=== PATIENT | female | born 1955 | race Caucasian/White ===

== ENCOUNTER 2017-11-07 12:07 | Observation (INO) | payer BC ==
[2017-11-07] MEDS ORDERED: Sodium Chloride 0.9% 10 ML Syringe FLUSH PRN (12:09)
[2017-11-07] MEDS ORDERED: Sodium Chloride 0.9% 2.5 ML Syringe FLUSH PRN (12:09)
--- NOTE | 2017-11-07 12:13 | EDM.PDOC ---
ED HPI GENERAL MEDICAL PROBLEM - General Chief Complaint: Neuro Symptoms/Deficits Stated Complaint: weakness Time Seen by Provider: 11/07/17 12:09 Source of Information: Reports: Patient, EMS History Limitations: Reports: No Limitations - History of Present Illness INITIAL COMMENTS - FREE TEXT/NARRATIVE: HISTORY AND PHYSICAL: Stroke Code was called at 1157, prior to patient's arrival - Dr Preston was consulted and involved in this case. History of present illness: Patient is a 62-year-old female who presents to the emergency room today with complaints of left-sided weakness since last evening at 10pm. Patient has a history of a previous stroke which resulted in no deficits, but did have some memory problems. Patient said that last night she noted some generalized weakness with ambulation, and woke up this morning she had noticed she was weaker on her left side. C/o generalized mild headache. No light or noise sensitivity. "I feel like I can't walk straight", she is ambulatory but feels like the left side is "sluggish". She denies any recent falls, head injury or trauma. She denies any fever, chills, chest pain, shortness of breath or cough. Denies any abdominal pain, nausea, vomiting, diarrhea or constipation. He has no syncope, near syncope, change in vision or diaphoresis. Review of systems: As per history of present illness and below otherwise all systems reviewed and negative. Past medical history: As per history of present illness and as reviewed below otherwise noncontributory. Surgical history: As per history of present illness and as reviewed below otherwise noncontributory. Social history: No reported history of drug or alcohol abuse. Family history: As per history of present illness and as reviewed below otherwise noncontributory. Physical exam: General: Well-developed and well-nourished 62-year-old female. Alert and oriented. Nontoxic appearing and in no acute distress. HEENT: Atraumatic, normocephalic, pupils equal and reactive bilaterally, negative for conjunctival pallor or scleral icterus, mucous membranes moist, throat clear, neck supple, nontender, trachea midline. No drooling or trismus noted. No meningeal signs Lungs: Clear to auscultation, breath sounds equal bilaterally, chest nontender. Heart: S1S2, regular rate and rhythm without overt murmur Abdomen: Soft, nondistended, nontender. Negative for masses or hepatosplenomegaly. Negative for costovertebral tenderness. Pelvis: Stable nontender. Genitourinary: Deferred. Rectal: Deferred. Skin: Intact, warm, dry. No lesions or rashes noted. Extremities: Atraumatic, negative for cords or calf pain. Neurovascular unremarkable. Neuro: Awake, alert, oriented. No facial droop or slurred speech noted. Drift is noted to the left upper and lower extremity. Patient is strong to both the left and right-sided, left is slightly weaker than the right - but is functioning. Cerebellum unremarkable. Motor and sensory unremarkable throughout. Notes: NIH upon arrival is a 3. She has slight drift to the left upper and left lower extremities. VSS. CT is negative for intracranial bleeding. Patient states that she still feels partly weak on the left upper and lower extremities. Patient is agreeable to staying overnight for further evaluation and management. Vital signs are stable. NIH remains 3. Dr Fox was consulted on this case. He is agreeable to keeping this patient for observation with telemetry. Diagnostics: CBC, CMP, UA, TSH, troponin, EKG, stat head CT, PT INR, PTT Therapeutics: Saline lock 2 Impression: Ischemic Stroke versus TIA Plan: Observation admission with telemetry. Definitive disposition and diagnosis as appropriate pending reevaluation and review of above. Duration: Hour(s): denies Pain Score (Numeric/FACES): 0 - Related Data Allergies Allergy/AdvReac Type Severity Reaction Status Date / Time cefoxitin [From Mefoxin] Allergy Anaphylactic Verified 09/26/15 14:11 Shock Home Meds: Home Meds Amitriptyline HCl 10 mg PO DAILY 11/07/17 [History] DULoxetine HCl [Cymbalta] 60 mg PO DAILY 11/07/17 [History] DULoxetine HCl [Cymbalta] 60 mg PO DAILY 11/07/17 [History] Diazepam [Valium] 5 mg PO ASDIRECTED PRN 11/07/17 [History] Furosemide 20 mg PO DAILY 11/07/17 [History] Modafinil 200 mg PO DAILY 11/07/17 [History] Pentosan Polysulfate Sodium [Elmiron] 100 mg PO DAILY 11/07/17 [History] Pregabalin [Lyrica] 300 mg PO BID 11/07/17 [History] Simvastatin [Zocor] 40 mg PO DAILY 11/07/17 [History] hydroCHLOROthiazide [Hydrochlorothiazide] 25 mg PO DAILY 11/07/17 [History] metFORMIN HCl [Metformin HCl] 500 mg PO BID 11/07/17 [History] Past Medical History HEENT History: Reports: Cataract Cardiovascular History: Reports: High Cholesterol, Hypertension, Other (See Below) Other Cardiovascular History: enlarged left ventricle Respiratory History: Reports: Asthma, COPD, Other (See Below) Other Respiratory History: Valley disease, emphasima Gastrointestinal History: Reports: Other (See Below) Other Gastrointestinal History: gastric bypass Genitourinary History: Reports: Renal Calculus Musculoskeletal History: Reports: Back Pain, Chronic Other Musculoskeletal History: foot and wrist surgery Neurological History: Reports: Neuropathy, Diabetic Psychiatric History: Reports: None Endocrine/Metabolic History: Reports: Diabetes, Type II Dermatologic History: Reports: None - Infectious Disease History Infectious Disease History: Reports: Chicken Pox, Measles, Mumps - Past Surgical History GI Surgical History: Reports: Appendectomy, Cholecystectomy Neurological Surgical History: Reports: C-Spine Social & Family History - Family History Family Medical History: Noncontributory HEENT: Reports: None Cardiac: Reports: Heart Failure, Hypertension, OR, Pacemaker Respiratory: Reports: COPD GI: Reports: None OBGYN: Reports: None Musculoskeletal: Reports: Arthritis Psychiatric: Reports: Bipolar, Depression, OCD Dermatologic: Reports: Eczema Oncologic: Reports: Lymphoma, Ovarian ED ROS GENERAL - Review of Systems Review Of Systems: ROS reveals no pertinent complaints other than HPI. ED EXAM, NEURO - Physical Exam Exam: See Below (See dictation) Course - Vital Signs Last Recorded V/S: Last Vital Signs Temp 96.6 F 11/07/17 12:07 Pulse 65 11/07/17 12:07 Resp 18 11/07/17 12:07 BP 133/66 11/07/17 12:07 Pulse Ox 95 11/07/17 12:07 - Orders/Labs/Meds Orders: Active Orders 24 hr Category Date Time Status Assess Neurological Status [RC] ASDIRECTED Care 11/07/17 12:09 Active Blood Glucose Check, Bedside [RC] STAT Care 11/07/17 12:09 Active EKG Documentation Completion [RC] STAT Care 11/07/17 12:09 Active Height and Weight [RC] UPON Care 11/07/17 12:09 Active Initiate Acute Stroke Protocol [RC] STAT Care 11/07/17 12:09 Active NIH Stroke Scale [RC] ASDIRECTED Care 11/07/17 12:09 Active Nursing Bedside Swallow Screen [RC] ASDIRECTED Care 11/07/17 12:09 Active Oxygen Therapy [RC] ASDIRECTED Care 11/07/17 12:09 Active Head wo Cont [CT] Stat Exams 11/07/17 12:09 Taken Sodium Chloride 0.9% [Normal Saline] 1,000 ml Med 11/07/17 12:50 Active IV STAT Sodium Chloride 0.9% [Saline Flush] Med 11/07/17 12:09 Active 10 ml FLUSH ASDIRECTED PRN Sodium Chloride 0.9% [Saline Flush] Med 11/07/17 12:09 Active 2.5 ml FLUSH ASDIRECTED PRN Peripheral IV Insertion Adult [OM.PC] Stat Oth 11/07/17 12:09 Ordered Peripheral IV Insertion Adult [OM.PC] Stat Oth 11/07/17 12:09 Ordered Medication Orders Sodium Chloride (Normal Saline) 1,000 mls @ 150 mls/hr IV STAT ONE Stop: 11/07/17 19:29 Last Admin: 11/07/17 13:12 Dose: 150 mls/hr Sodium Chloride (Saline Flush) 10 ml FLUSH ASDIRECTED PRN PRN Reason: Keep Vein Open Sodium Chloride (Saline Flush) 2.5 ml FLUSH ASDIRECTED PRN PRN Reason: Keep Vein Open Labs: Laboratory Tests 11/07/17 11/07/17 11/07/17 Range/Units 12:10 12:10 12:10 WBC 8.53 (4.0-11.0) K/uL RBC 4.35 (4.30-5.90) M/uL Hgb 10.2 L (12.0-16.0) g/dL Hct 33.3 L (36.0-46.0) % MCV 76.6 L (80.0-98.0) fL MCH 23.4 L (27.0-32.0) pg MCHC 30.6 L (31.0-37.0) g/dL RDW Std Deviation 45.1 (28.0-62.0) fl RDW Coeff of Cynthia 16 H (11.0-15.0) % Plt Count 226 (150-400) K/uL MPV 12.50 H (7.40-12.00) fL Neut % (Auto) 58.4 (48.0-80.0) % Lymph % (Auto) 29.9 (16.0-40.0) % Weber % (Auto) 9.4 (0.0-15.0) % Eos % (Auto) 1.4 (0.0-7.0) % Baso % (Auto) 0.9 (0.0-1.5) % Neut # (Auto) 5.0 (1.4-5.7) K/uL Lymph # (Auto) 2.6 H (0.6-2.4) K/uL Weber # (Auto) 0.8 (0.0-0.8) K/uL Eos # (Auto) 0.1 (0.0-0.7) K/uL Baso # (Auto) 0.1 (0.0-0.1) K/uL Nucleated RBC % 0.0 /100WBC Nucleated RBCs # 0 K/uL INR 0.93 APTT 24.6 (18.6-31.3) SEC Sodium 141 (136-145) mmol/L Potassium 3.6 (3.5-5.1) mmol/L Chloride 103 (98-107) mmol/L Carbon Dioxide 30.5 (21.0-32.0) mmol/L BUN 19 H (7.0-18.0) mg/dL Creatinine 1.0 (0.6-1.0) mg/dL Est Cr Clr Drug Dosing 57.33 mL/min Estimated GFR (MDRD) 55.8 ml/min Glucose 101 (74-106) mg/dL Calcium 8.8 (8.5-10.1) mg/dL Total Bilirubin 0.2 (0.2-1.0) mg/dL AST 13 L (15-37) IU/L ALT 19 (14-63) IU/L Alkaline Phosphatase 145 H (46-116) U/L Troponin I < 0.050 (0.000-0.056) ng/mL Total Protein 7.4 (6.4-8.2) g/dL Albumin 3.9 (3.4-5.0) g/dL Globulin 3.5 (2.0-3.5) g/dL Albumin/Globulin Ratio 1.1 L (1.3-2.8) TSH 3rd Generation 0.60 (0.36-3.74) uIU/mL Meds: Medications Generic Name Dose Route Start Last Admin Trade Name Freq PRN Reason Stop Dose Admin Sodium Chloride 1,000 mls @ 150 mls/hr 11/07/17 12:50 11/07/17 13:12 Normal Saline IV 11/07/17 19:29 150 mls/hr STAT ONE Administration Sodium Chloride 10 ml 11/07/17 12:09 Saline Flush FLUSH ASDIRECTED PRN Keep Vein Open Sodium Chloride 2.5 ml 11/07/17 12:09 Saline Flush FLUSH ASDIRECTED PRN Keep Vein Open Departure - Departure Time of Disposition: 13:54 Disposition: Refer to Observation Clinical Impression: Stroke Qualifiers: CVA mechanism: unspecified Qualified Code(s): I63.9 - Cerebral infarction, unspecified - Discharge Information Referrals: PCP,None [Primary Care Provider] - Forms: ED Department Discharge - My Orders Last 24 Hours: My Active Orders 11/07/17 12:09 Assess Neurological Status [RC] ASDIRECTED Blood Glucose Check, Bedside [RC] STAT EKG Documentation Completion [RC] STAT Height and Weight [RC] UPON Initiate Acute Stroke Protocol [RC] STAT NIH Stroke Scale [RC] ASDIRECTED Nursing Bedside Swallow Screen [RC] ASDIRECTED Oxygen Therapy [RC] ASDIRECTED Head wo Cont [CT] Stat Sodium Chloride 0.9% [Saline Flush] 10 ml FLUSH ASDIRECTED PRN Sodium Chloride 0.9% [Saline Flush] 2.5 ml FLUSH ASDIRECTED PRN Peripheral IV Insertion Adult [OM.PC] Stat Peripheral IV Insertion Adult [OM.PC] Stat 11/07/17 12:50 Sodium Chloride 0.9% [Normal Saline] 1,000 ml IV STAT - Assessment/Plan Last 24 Hours: My Active Orders 11/07/17 12:09 Assess Neurological Status [RC] ASDIRECTED Blood Glucose Check, Bedside [RC] STAT EKG Documentation Completion [RC] STAT Height and Weight [RC] UPON Initiate Acute Stroke Protocol [RC] STAT NIH Stroke Scale [RC] ASDIRECTED Nursing Bedside Swallow Screen [RC] ASDIRECTED Oxygen Therapy [RC] ASDIRECTED Head wo Cont [CT] Stat Sodium Chloride 0.9% [Saline Flush] 10 ml FLUSH ASDIRECTED PRN Sodium Chloride 0.9% [Saline Flush] 2.5 ml FLUSH ASDIRECTED PRN Peripheral IV Insertion Adult [OM.PC] Stat Peripheral IV Insertion Adult [OM.PC] Stat 11/07/17 12:50 Sodium Chloride 0.9% [Normal Saline] 1,000 ml IV STAT
[2017-11-07 12:49] LABS: CHLORIDE,CL 103 mmol/L (98-107); SODIUM,NA 141 mmol/L (136-145)
[2017-11-07] MEDS ORDERED: Sodium Chloride 0.9% 1,000 ML IV ONE (12:50)
--- NOTE | 2017-11-07 14:03 | CT ---
EXAMINATION: Non contrast CT head. Coronal and sagittal reformats. HISTORY: Stroke code FINDINGS: No evidence of intra or extra axial hemorrhage, mass, midline shift, hydrocephalus or edema. No hypoattenuation changes in the major vascular territories to suggest acute infarct. No abnormal intracranial calcifications are detected. No evidence of substantial vascular calcificat ions. Small mucous retention cyst within the left maxillary sinus. Mastoid air cells and middle ears are cl ear. Pituitary fossa appears unremarkable. Orbits and globes are symmetric. Calvarium is intact. No evidence of skull fracture. IMPRESSION: No acute intracranial findings. The above findings were called to the 12:23 PM.
--- NOTE | 2017-11-07 15:34 | PCM.HP ---
<Ray Martinez - Last Filed: 11/07/17 15:57> H&P History of Present Illness - General Date of Service: 11/07/17 Admit Problem/Dx: Admission Diagnosis/Problem Admission Diagnosis/Problem Stroke of unknown etiology Source of Information: Patient History Limitations: Reports: No Limitations - History of Present Illness Initial Comments - Free Text/Narative: 62F hx of Stroke, HTN, T2DM, Diabetic neuropathy, HLD, COPD that presents today w/ a chief complaint of left sided weakness x1 week. She states that this morning she noted an increasing weakness on her left side and noted that when she was walking she would drift towards her right side and felt unsteady. This has been an ongoing issue but worse today. She says because of this unsteadiness shes had multiple falls. Last fall was over a week ago, no syncope , no head trauma, she says shes sore on the right side because of it though. She endorses constant numbness/tingling in her legs bilaterally secondary to neuropathy managed and somewhat relieved by Lyrica, this is unchanged. Pt also has a hx of Gastric bypass for which she gets IM B12 injections for vitamin maintenance. Her hx of stroke resulted in some memory issues to her knowledge but no memory deficits. At the time of examination, she says her unsteadiness has resolved but she endorses her left side still feeling weak. She also complains of a mild headache with a distant hx of migraines but hasn't had one recently. ER Course: Head CT negative CBC - normocytic anemia CMP - Elevated BUN, normal creatinine Blood glucose 101 denies Pain Score (Numeric/FACES): 0 - Related Data Allergies/Adverse Reactions: Allergies Allergy/AdvReac Type Severity Reaction Status Date / Time cefoxitin [From Mefoxin] Allergy Anaphylactic Verified 09/26/15 14:11 Shock Home Medications: Home Meds Amitriptyline HCl 10 mg PO BEDTIME 11/07/17 [History] DULoxetine HCl [Cymbalta] 60 mg PO DAILY 11/07/17 [History] Diazepam [Valium] 5 mg PO BEDTIME PRN 11/07/17 [History] Furosemide 20 mg PO QAM 11/07/17 [History] Modafinil 200 mg PO QAM 11/07/17 [History] Pentosan Polysulfate Sodium [Elmiron] 100 mg PO TID 11/07/17 [History] Pregabalin [Lyrica] 300 mg PO BID 11/07/17 [History] Simvastatin [Zocor] 40 mg PO BEDTIME 11/07/17 [History] hydroCHLOROthiazide [Hydrochlorothiazide] 25 mg PO QAM 11/07/17 [History] metFORMIN HCl [Metformin HCl] 500 mg PO BID 11/07/17 [History] Clopidogrel [Plavix] 75 mg PO DAILY 30 Days #30 tablet 11/08/17 [Rx] Folic Acid 1 mg PO DAILY 30 Days #30 tablet 11/08/17 [Rx] Past Medical History HEENT History: Reports: Cataract Cardiovascular History: Reports: High Cholesterol, Hypertension, Other (See Below) Other Cardiovascular History: enlarged left ventricle Respiratory History: Reports: Asthma, COPD, Other (See Below) Other Respiratory History: Valley disease, emphasima Gastrointestinal History: Reports: Other (See Below) Other Gastrointestinal History: gastric bypass Genitourinary History: Reports: Renal Calculus Musculoskeletal History: Reports: Back Pain, Chronic Other Musculoskeletal History: foot and wrist surgery Neurological History: Reports: Neuropathy, Diabetic Psychiatric History: Reports: None Endocrine/Metabolic History: Reports: Diabetes, Type II Immunologic History: Reports: None Oncologic (Cancer) History: Reports: None Dermatologic History: Reports: None - Infectious Disease History Infectious Disease History: Reports: Chicken Pox, Measles, Mumps - Past Surgical History GI Surgical History: Reports: Appendectomy, Cholecystectomy Neurological Surgical History: Reports: C-Spine Social & Family History - Family History Family Medical History: Noncontributory HEENT: Reports: None Cardiac: Reports: Heart Failure, Hypertension, PA, Pacemaker Respiratory: Reports: COPD GI: Reports: None OBGYN: Reports: None Musculoskeletal: Reports: Arthritis Psychiatric: Reports: Bipolar, Depression, OCD Dermatologic: Reports: Eczema Oncologic: Reports: Lymphoma, Ovarian - Tobacco Use Smoking Status *Q: Former Smoker Used Tobacco, but Quit: Yes Month/Year Tobacco Last Used: years ago - Caffeine Use Caffeine Use: Reports: Coffee - Recreational Drug Use Recreational Drug Use: No H&P Review of Systems - Review of Systems: Review Of Systems: ROS reveals no pertinent complaints other than HPI. Exam - Exam Exam: See Below - Vital Signs Vital Signs: Last Vital Signs Temp 35.9 C 11/07/17 12:07 Pulse 61 11/07/17 12:42 Resp 14 11/07/17 12:23 BP 111/67 11/07/17 12:42 Pulse Ox 99 11/07/17 12:42 Weight: 98.7 kg - Exam General: Alert, Oriented, Cooperative HEENT: Conjunctiva Clear, EACs Clear, EOMI, Hearing Intact, Other (oral mucosa is pink, dry) Neck: Supple, Trachea Midline Lungs: Clear to Auscultation, Normal Respiratory Effort Cardiovascular: Regular Rate, Regular Rhythm GI/Abdominal Exam: Normal Bowel Sounds, Soft, Non-Tender, No Organomegaly, No Distention, No Abnormal Bruit, No Mass Back Exam: Normal Inspection, Full Range of Motion, NT Extremities: Normal Inspection, Other (Forward flexion at the shoulders without resistance shows a hesitance on the left side but is able to compeltely flex/ abduct at the shoulder. Strength however at the shoulder, elbow, and director trust strength are 3/5 on left side, 4/5 on right side. Flexion at the hip on left side is 4/5. Normal gait and station. No impairment in balance. ) Neuro Extensive - Mental Status: Alert, Oriented x3, Normal Mood/Affect, Normal Cognition, Memory Intact Neuro Extensive - Motor, Sensory, Reflexes: CN II-XII Intact, Normal Gait, Normal Reflexes DTR: 2+: Bicep (L), Bicep (R), Patella (L), Patella (R), Achilles (L), Achilles (R) Psychiatric: Alert, Normal Affect, Normal Mood - Patient Data Lab Results Last 24 hrs: Laboratory Results - last 24 hr 11/07/17 11/07/17 11/07/17 Range/Units 12:10 12:10 12:10 WBC 8.53 (4.0-11.0) K/uL RBC 4.35 (4.30-5.90) M/uL Hgb 10.2 L (12.0-16.0) g/dL Hct 33.3 L (36.0-46.0) % MCV 76.6 L (80.0-98.0) fL MCH 23.4 L (27.0-32.0) pg MCHC 30.6 L (31.0-37.0) g/dL RDW Std Deviation 45.1 (28.0-62.0) fl RDW Coeff of Cynthia 16 H (11.0-15.0) % Plt Count 226 (150-400) K/uL MPV 12.50 H (7.40-12.00) fL Neut % (Auto) 58.4 (48.0-80.0) % Lymph % (Auto) 29.9 (16.0-40.0) % Fulton % (Auto) 9.4 (0.0-15.0) % Eos % (Auto) 1.4 (0.0-7.0) % Baso % (Auto) 0.9 (0.0-1.5) % Neut # (Auto) 5.0 (1.4-5.7) K/uL Lymph # (Auto) 2.6 H (0.6-2.4) K/uL Fulton # (Auto) 0.8 (0.0-0.8) K/uL Eos # (Auto) 0.1 (0.0-0.7) K/uL Baso # (Auto) 0.1 (0.0-0.1) K/uL Nucleated RBC % 0.0 /100WBC Nucleated RBCs # 0 K/uL INR 0.93 APTT 24.6 (18.6-31.3) SEC Sodium 141 (136-145) mmol/L Potassium 3.6 (3.5-5.1) mmol/L Chloride 103 (98-107) mmol/L Carbon Dioxide 30.5 (21.0-32.0) mmol/L BUN 19 H (7.0-18.0) mg/dL Creatinine 1.0 (0.6-1.0) mg/dL Est Cr Clr Drug Dosing 57.33 mL/min Estimated GFR (MDRD) 55.8 ml/min Glucose 101 (74-106) mg/dL Calcium 8.8 (8.5-10.1) mg/dL Total Bilirubin 0.2 (0.2-1.0) mg/dL AST 13 L (15-37) IU/L ALT 19 (14-63) IU/L Alkaline Phosphatase 145 H (46-116) U/L Troponin I < 0.050 (0.000-0.056) ng/mL Total Protein 7.4 (6.4-8.2) g/dL Albumin 3.9 (3.4-5.0) g/dL Globulin 3.5 (2.0-3.5) g/dL Albumin/Globulin Ratio 1.1 L (1.3-2.8) TSH 3rd Generation 0.60 (0.36-3.74) uIU/mL Result Diagrams: 11/07/17 12:10 11/07/17 12:10 Problem List Initiated/Reviewed/Updated: Yes Orders Last 24hrs: Active Orders 24 hr Category Date Time Status Admission Status [Patient Status] [ADT] Stat ADT 11/07/17 14:02 Active Assess Neurological Status [RC] ASDIRECTED Care 11/07/17 12:09 Active Blood Glucose Check, Bedside [RC] STAT Care 11/07/17 12:09 Active EKG Documentation Completion [RC] STAT Care 11/07/17 12:09 Active Height and Weight [RC] UPON Care 11/07/17 12:09 Active Initiate Acute Stroke Protocol [RC] STAT Care 11/07/17 12:09 Active NIH Stroke Scale [RC] ASDIRECTED Care 11/07/17 12:09 Active Nursing Bedside Swallow Screen [RC] ASDIRECTED Care 11/07/17 12:09 Active Oxygen Therapy [RC] ASDIRECTED Care 11/07/17 12:09 Active Sodium Chloride 0.9% [Normal Saline] 1,000 ml Med 11/07/17 12:50 Active IV STAT Sodium Chloride 0.9% [Saline Flush] Med 11/07/17 12:09 Active 10 ml FLUSH ASDIRECTED PRN Sodium Chloride 0.9% [Saline Flush] Med 11/07/17 12:09 Active 2.5 ml FLUSH ASDIRECTED PRN Peripheral IV Insertion Adult [OM.PC] Stat Oth 11/07/17 12:09 Ordered Peripheral IV Insertion Adult [OM.PC] Stat Oth 11/07/17 12:09 Ordered Medication Orders Sodium Chloride (Normal Saline) 1,000 mls @ 150 mls/hr IV STAT ONE Stop: 11/07/17 19:29 Last Admin: 11/07/17 13:12 Dose: 150 mls/hr Sodium Chloride (Saline Flush) 10 ml FLUSH ASDIRECTED PRN PRN Reason: Keep Vein Open Sodium Chloride (Saline Flush) 2.5 ml FLUSH ASDIRECTED PRN PRN Reason: Keep Vein Open Assessment/Plan Comment:: Assessment: #1. Left sided weakness with a history of stroke #2. Subjective ambulatory dysfunction #3. Normocytic anemia #4. History of CHF, COPD, Stroke, T2DM, Gastric bypass, HTN, Diabetic neuropathy , Fibromyalgia Plan: #1. Admit to the floor for observation. Full code. Vital signs per floor routine. Cardiac telemetry. #2. MRI Brain w w/o contrast #3. Full dose aspirin now #4. Atorvastatin 80mg PO now #5. Will allow for passive HTN, BP right now is stable. Notify provider if >180 systolic. #6. Echocardiogram #7. B12, Folic acid #8. As per the patients old chart, it does appear that she has dealt with a significant amount of anxiety in the past and this may be the culprit of her subjective complaints. However, with her past medical history and findings on physical exam, I would like to get an MRI to better establish a reason for her left sided weakness. 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 The patient was admitted to observation out of concern for worsening left-sided weakness as balance concerns. The patient had been at work and her coworkers had arranged for her to visit the emergency room. The patient does have a history of left- sided weakness from a previous stroke. She says that she had noticed worsening unsteadiness. Patient also has a history of diabetes mellitus type 2, neuropathy , COPD. The patient had been admitted secondary to concern for new stroke symptoms and/or TIA. The patient normally follows up with local neurologist. I agree with the medical residents assessment and plan of care. Please see orders. Exam - Vital Signs Vital Signs: Last Vital Signs Temp 36.2 C 11/08/17 07:51 Pulse 58 L 11/08/17 07:51 Resp 16 11/08/17 07:51 BP 111/65 11/08/17 07:51 Pulse Ox 94 L 11/08/17 07:51 - Patient Data Lab Results Last 24 hrs: Laboratory Results - last 24 hr 11/07/17 11/07/17 11/07/17 Range/Units 12:10 12:10 12:10 WBC 8.53 (4.0-11.0) K/uL RBC 4.35 (4.30-5.90) M/uL Hgb 10.2 L (12.0-16.0) g/dL Hct 33.3 L (36.0-46.0) % MCV 76.6 L (80.0-98.0) fL MCH 23.4 L (27.0-32.0) pg MCHC 30.6 L (31.0-37.0) g/dL RDW Std Deviation 45.1 (28.0-62.0) fl RDW Coeff of Cynthia 16 H (11.0-15.0) % Plt Count 226 (150-400) K/uL MPV 12.50 H (7.40-12.00) fL Neut % (Auto) 58.4 (48.0-80.0) % Lymph % (Auto) 29.9 (16.0-40.0) % Fulton % (Auto) 9.4 (0.0-15.0) % Eos % (Auto) 1.4 (0.0-7.0) % Baso % (Auto) 0.9 (0.0-1.5) % Neut # (Auto) 5.0 (1.4-5.7) K/uL Lymph # (Auto) 2.6 H (0.6-2.4) K/uL Fulton # (Auto) 0.8 (0.0-0.8) K/uL Eos # (Auto) 0.1 (0.0-0.7) K/uL Baso # (Auto) 0.1 (0.0-0.1) K/uL Nucleated RBC % 0.0 /100WBC Nucleated RBCs # 0 K/uL INR 0.93 APTT 24.6 (18.6-31.3) SEC Sodium 141 (136-145) mmol/L Potassium 3.6 (3.5-5.1) mmol/L Chloride 103 (98-107) mmol/L Carbon Dioxide 30.5 (21.0-32.0) mmol/L BUN 19 H (7.0-18.0) mg/dL Creatinine 1.0 (0.6-1.0) mg/dL Est Cr Clr Drug Dosing 57.33 mL/min Estimated GFR (MDRD) 55.8 ml/min Glucose 101 (74-106) mg/dL Hemoglobin A1c (4.5-6.2) % Calcium 8.8 (8.5-10.1) mg/dL Total Bilirubin 0.2 (0.2-1.0) mg/dL AST 13 L (15-37) IU/L ALT 19 (14-63) IU/L Alkaline Phosphatase 145 H (46-116) U/L Troponin I < 0.050 (0.000-0.056) ng/mL Total Protein 7.4 (6.4-8.2) g/dL Albumin 3.9 (3.4-5.0) g/dL Globulin 3.5 (2.0-3.5) g/dL Albumin/Globulin Ratio 1.1 L (1.3-2.8) Triglycerides (0-200) mg/dL Cholesterol (50-200) mg/dL LDL Cholesterol, Calc (60-180) mg/dL VLDL Cholesterol (5-55) mg/dL HDL Cholesterol (40-60) mg/dL Cholesterol/HDL Ratio (3.3-6.0) Vitamin B12 (193-986) pg/mL Folate (8.60-58.90) ng/mL TSH 3rd Generation 0.60 (0.36-3.74) uIU/mL 11/07/17 11/07/17 11/08/17 Range/Units 12:10 12:10 05:10 WBC 6.25 (4.0-11.0) K/uL RBC 4.00 L (4.30-5.90) M/uL Hgb 9.2 L (12.0-16.0) g/dL Hct 30.4 L (36.0-46.0) % MCV 76.0 L (80.0-98.0) fL MCH 23.0 L (27.0-32.0) pg MCHC 30.3 L (31.0-37.0) g/dL RDW Std Deviation 45.0 (28.0-62.0) fl RDW Coeff of Cynthia 16 H (11.0-15.0) % Plt Count 261 (150-400) K/uL MPV 12.70 H (7.40-12.00) fL Neut % (Auto) (48.0-80.0) % Lymph % (Auto) (16.0-40.0) % Fulton % (Auto) (0.0-15.0) % Eos % (Auto) (0.0-7.0) % Baso % (Auto) (0.0-1.5) % Neut # (Auto) (1.4-5.7) K/uL Lymph # (Auto) (0.6-2.4) K/uL Fulton # (Auto) (0.0-0.8) K/uL Eos # (Auto) (0.0-0.7) K/uL Baso # (Auto) (0.0-0.1) K/uL Nucleated RBC % 0.0 /100WBC Nucleated RBCs # 0 K/uL INR APTT (18.6-31.3) SEC Sodium (136-145) mmol/L Potassium (3.5-5.1) mmol/L Chloride (98-107) mmol/L Carbon Dioxide (21.0-32.0) mmol/L BUN (7.0-18.0) mg/dL Creatinine (0.6-1.0) mg/dL Est Cr Clr Drug Dosing mL/min Estimated GFR (MDRD) ml/min Glucose (74-106) mg/dL Hemoglobin A1c 6.6 H (4.5-6.2) % Calcium (8.5-10.1) mg/dL Total Bilirubin (0.2-1.0) mg/dL AST (15-37) IU/L ALT (14-63) IU/L Alkaline Phosphatase (46-116) U/L Troponin I (0.000-0.056) ng/mL Total Protein (6.4-8.2) g/dL Albumin (3.4-5.0) g/dL Globulin (2.0-3.5) g/dL Albumin/Globulin Ratio (1.3-2.8) Triglycerides (0-200) mg/dL Cholesterol (50-200) mg/dL LDL Cholesterol, Calc (60-180) mg/dL VLDL Cholesterol (5-55) mg/dL HDL Cholesterol (40-60) mg/dL Cholesterol/HDL Ratio (3.3-6.0) Vitamin B12 718 (193-986) pg/mL Folate 7.00 L (8.60-58.90) ng/mL TSH 3rd Generation (0.36-3.74) uIU/mL 11/08/17 Range/Units 05:10 WBC (4.0-11.0) K/uL RBC (4.30-5.90) M/uL Hgb (12.0-16.0) g/dL Hct (36.0-46.0) % MCV (80.0-98.0) fL MCH (27.0-32.0) pg MCHC (31.0-37.0) g/dL RDW Std Deviation (28.0-62.0) fl RDW Coeff of Cynthia (11.0-15.0) % Plt Count (150-400) K/uL MPV (7.40-12.00) fL Neut % (Auto) (48.0-80.0) % Lymph % (Auto) (16.0-40.0) % Fulton % (Auto) (0.0-15.0) % Eos % (Auto) (0.0-7.0) % Baso % (Auto) (0.0-1.5) % Neut # (Auto) (1.4-5.7) K/uL Lymph # (Auto) (0.6-2.4) K/uL Fulton # (Auto) (0.0-0.8) K/uL Eos # (Auto) (0.0-0.7) K/uL Baso # (Auto) (0.0-0.1) K/uL Nucleated RBC % /100WBC Nucleated RBCs # K/uL INR APTT (18.6-31.3) SEC Sodium 142 (136-145) mmol/L Potassium 3.4 L (3.5-5.1) mmol/L Chloride 104 (98-107) mmol/L Carbon Dioxide 31.1 (21.0-32.0) mmol/L BUN 19 H (7.0-18.0) mg/dL Creatinine 0.9 (0.6-1.0) mg/dL Est Cr Clr Drug Dosing 63.70 mL/min Estimated GFR (MDRD) > 60.0 ml/min Glucose 107 H (74-106) mg/dL Hemoglobin A1c (4.5-6.2) % Calcium 8.5 (8.5-10.1) mg/dL Total Bilirubin 0.3 (0.2-1.0) mg/dL AST 12 L (15-37) IU/L ALT 16 (14-63) IU/L Alkaline Phosphatase 129 H (46-116) U/L Troponin I (0.000-0.056) ng/mL Total Protein 6.3 L (6.4-8.2) g/dL Albumin 3.3 L (3.4-5.0) g/dL Globulin 3.0 (2.0-3.5) g/dL Albumin/Globulin Ratio 1.1 L (1.3-2.8) Triglycerides 266 H (0-200) mg/dL Cholesterol 175 (50-200) mg/dL LDL Cholesterol, Calc 79 (60-180) mg/dL VLDL Cholesterol 53 (5-55) mg/dL HDL Cholesterol 43 (40-60) mg/dL Cholesterol/HDL Ratio 4.1 (3.3-6.0) Vitamin B12 (193-986) pg/mL Folate (8.60-58.90) ng/mL TSH 3rd Generation (0.36-3.74) uIU/mL Result Diagrams: 11/08/17 05:10 11/08/17 05:10 Orders Last 24hrs: Active Orders 24 hr Category Date Time Status Admission Status [Patient Status] [ADT] Stat ADT 11/07/17 14:02 Active Patient Status [ADT] Routine ADT 11/07/17 15:47 Active Assess Neurological Status [RC] ASDIRECTED Care 11/07/17 12:09 Active EKG 12 Lead [EKG Documentation Completion] [RC] STAT Care 11/08/17 08:02 Active Influenza Vaccine Charge [RC] .DISCHARGE Care 11/07/17 15:52 Active NIH Stroke Scale [RC] ASDIRECTED Care 11/07/17 12:09 Active Oxygen Therapy [RC] PRN Care 11/07/17 15:47 Active Ready for Discharge [RC] PER UNIT ROUTINE Care 11/08/17 08:45 Active Telemetry Monitoring [Cardiac Monitoring] [RC] Q8H Care 11/07/17 14:51 Active Up With Assistance [RC] ASDIRECTED Care 11/07/17 15:47 Active VTE/DVT Education [RC] PER UNIT ROUTINE Care 11/07/17 15:47 Active Vital Signs [RC] Q4H Care 11/07/17 15:47 Active Consult to Physical Therapy [PT Evaluation and Cons 11/07/17 16:51 Active Treatment] [CONS] Routine Regular Diet [DIET] Diet 11/07/17 Dinner Active Ang Head wo Cont [MR] Stat Exams 11/07/17 16:53 Stop Req Ang Head wo Cont [MR] Stat Exams 11/07/17 17:12 Taken Ang Neck wo Cont [MR] Stat Exams 11/07/17 17:12 Taken Brain wo Cont [MR] Stat Exams 11/07/17 15:53 Taken Echo Comp wo Cont [US] Routine Exams 11/08/17 16:01 Taken MRA Neck Without Contrast [Ang Neck wo Cont] [MR] Stat Exams 11/07/17 16:53 Stop Req Acetaminophen [Tylenol] Med 11/07/17 15:47 Active 650 mg PO Q4H PRN Bisacodyl [Dulcolax] Med 11/07/17 15:47 Active 5 mg PO DAILY PRN Clopidogrel [Plavix] Med 11/07/17 17:00 Active 75 mg PO DAILY DULoxetine [Cymbalta] Med 11/07/17 16:00 Active 60 mg PO DAILY Enoxaparin [Lovenox] Med 11/07/17 16:00 Active 40 mg SUBCUT Q24H Folic Acid Med 11/08/17 09:00 Active 1 mg PO DAILY Ondansetron [Zofran] Med 11/07/17 15:47 Active 4 mg IVPUSH Q4H PRN Pregabalin [Lyrica] Med 11/07/17 16:00 Active 300 mg PO BID Sodium Chloride 0.9% [Saline Flush] Med 11/07/17 12:09 Active 10 ml FLUSH ASDIRECTED PRN Sodium Chloride 0.9% [Saline Flush] Med 11/07/17 12:09 Active 2.5 ml FLUSH ASDIRECTED PRN metFORMIN [Glucophage] Med 11/07/17 16:00 Active 500 mg PO BID Peripheral IV Insertion Adult [OM.PC] Stat Oth 11/07/17 12:09 Ordered Peripheral IV Insertion Adult [OM.PC] Stat Oth 11/07/17 12:09 Ordered Sequential Compression Device [OM.PC] Per Unit Routine Oth 11/07/17 15:48 Ordered Resuscitation Status Routine Resus Stat 11/07/17 15:47 Ordered Medication Orders Acetaminophen (Tylenol) 650 mg PO Q4H PRN PRN Reason: Pain (Mild 1-3)/fever Bisacodyl (Dulcolax) 5 mg PO DAILY PRN PRN Reason: Constipation Clopidogrel Bisulfate (Plavix) 75 mg PO DAILY [facility] Last Admin: 11/07/17 17:36 Dose: 75 mg Duloxetine HCl (Cymbalta) 60 mg PO DAILY [facility] Last Admin: 11/07/17 16:40 Dose: Enoxaparin Sodium (Lovenox) 40 mg SUBCUT Q24H [facility] Last Admin: 11/07/17 16:41 Dose: 40 mg Folic Acid (Folic Acid) 1 mg PO DAILY [facility] Metformin HCl (Glucophage) 500 mg PO BID [facility] Last Admin: 11/07/17 21:46 Dose: 500 mg Admin: 11/07/17 16:40 Dose: Non-Formulary Medication (Pregabalin [Lyrica]) 300 mg PO BID [facility] Last Admin: 11/07/17 21:30 Dose: 300 mg Admin: 11/07/17 16:42 Dose: Ondansetron HCl (Zofran) 4 mg IVPUSH Q4H PRN PRN Reason: Nausea Sodium Chloride (Saline Flush) 10 ml FLUSH ASDIRECTED PRN PRN Reason: Keep Vein Open Sodium Chloride (Saline Flush) 2.5 ml FLUSH ASDIRECTED PRN PRN Reason: Keep Vein Open
[2017-11-07] MEDS ORDERED: Acetaminophen 325 MG Tab PO PRN (15:47)
[2017-11-07] MEDS ORDERED: Bisacodyl 5 MG Tab PO PRN (15:47)
[2017-11-07] MEDS ORDERED: Ondansetron 4 MG/2 ML SDV IVPUSH PRN (15:47)
[2017-11-07] MEDS ORDERED: Aspirin 325 MG Tab PO ONE (15:50)
[2017-11-07] MEDS ORDERED: atorvaSTATin 40 MG Tab PO ONE (15:56)
[2017-11-07] MEDS ORDERED: Enoxaparin 40 MG/0.4 ML Syringe SUBCUT SCH (16:00)
[2017-11-07] MEDS: DULoxetine 60 MG Cap PO SCH (16:40)
[2017-11-07] MEDS: metFORMIN 500 MG Tab PO SCH ×2 (16:40→21:46)
[2017-11-07] MEDS: Non-Formulary Medication 1 Each (Pregabalin [Lyrica] 300 MG) PO SCH ×2 (16:42→21:30)
[2017-11-07] MEDS: Clopidogrel 75 MG Tab PO SCH (17:36)
[2017-11-08 06:00] LABS: CHLORIDE,CL 104 mmol/L (98-107); SODIUM,NA 142 mmol/L (136-145)
[2017-11-08] MEDS ORDERED: Potassium Chloride 20 MEQ Tab.ER PO ONE (08:01)
[2017-11-08 08:56] VITALS: BP 90/52
[2017-11-08] MEDS ORDERED: Pregabalin 75 MG Cap PO SCH (09:00)
[2017-11-08] MEDS ORDERED: Folic Acid 1 MG Tab PO SCH (09:00)
[2017-11-08] MEDS: DULoxetine 60 MG Cap PO SCH (09:14)
[2017-11-08] MEDS: Clopidogrel 75 MG Tab PO SCH (09:16)
[2017-11-08] MEDS: metFORMIN 500 MG Tab PO SCH (09:16)
--- NOTE | 2017-11-08 10:33 | MR ---
EXAM DATE: 11/07/17 PATIENT'S AGE: 62 Patient: KIERSTEN ZARATE Facility: [place], [place] Site . Site : 1955 Study: MRI Head [id number]/[id number] 8:20:17 PM Ordering Physician: Dominique Burton Final Report: Indication: Stroke. Technique: MRI Head: Performed without IV contrast. MRA Head: Performed without IV contrast. MRA Neck: Performed without IV contrast. Comparison: None are available. Findings: MRI Head: No acute infarct or restricted diffusion is identified small foci of T2 signal abnormality are scattered in the cerebral white matter and central letty, typical for [id number] small vessel ischemic change. No evidence for recent or remote i hemorrhage. No intracranial mass effect. No ventricular obstruction. No signal changes in the brain parenchyma. Grossly normal flow voids are maintained in the directly imaged intracranial vascular structures. The craniovertebral junction is unremarkable, with a patent foramen magnum. Both temporal bones are clear. There is trace membrane thickening in the ethmoid paranasal sinuses. MRA Head: No occlusion/filling defect or acquired arterial stenosis identified. No aneurysm or vascular malformation seen. MRA Neck: Motion degraded acquisitions are of poor diagnostic quality. No gross evidence for hemodynamically significant internal carotid artery stenosis by NASCET criteria. The cervical vertebral arteries are segmentally visualized and patent where seen. The aortic arch, great vessel origins and proximal subclavian arteries cannot be evaluated on this non gadolinium exam. Impression: MRI Head: 1. No acute pathology identified. No evidence for mass, hemorrhage or recent infarct. 2. Mild to moderate small vessel ischemic change. MRA Head: Negative exam. No occlusions identified. MRA Neck: 1. Motion degraded acquisitions are of very limited diagnostic value. 2. No gross evidence for high-grade ICA stenosis by NASCET criteria. 3. Segments of both vertebral arteries are visualized. . Dictated by Eldon Demarco MD @ Nov 08 2017 5:28AM (Electronic Signature) Report Signed by Proxy. BONI
[2017-11-08] MEDS: Non-Formulary Medication 1 Each (Pregabalin [Lyrica] 300 MG) PO SCH (10:34)
--- NOTE | 2017-11-08 10:34 | MR ---
EXAM DATE: 11/07/17 PATIENT'S AGE: 62 Patient: KIERSTEN ZARATE Facility: [place], [place] Site . Site : 1955 Study: MRI Head Angio [id number]/26/[id number] 8:20:54 PM Ordering Physician: Dominique Burton Final Report: Indication: Stroke. Technique: MRI Head: Performed without IV contrast. MRA Head: Performed without IV contrast. MRA Neck: Performed without IV contrast. Comparison: None are available. Findings: MRI Head: No acute infarct or restricted diffusion is identified small foci of T2 signal abnormality are scattered in the cerebral white matter and central letty, typical for [id number] small vessel ischemic change. No evidence for recent or remote i hemorrhage. No intracranial mass effect. No ventricular obstruction. No signal changes in the brain parenchyma. Grossly normal flow voids are maintained in the directly imaged intracranial vascular structures. The craniovertebral junction is unremarkable, with a patent foramen magnum. Both temporal bones are clear. There is trace membrane thickening in the ethmoid paranasal sinuses. MRA Head: No occlusion/filling defect or acquired arterial stenosis identified. No aneurysm or vascular malformation seen. MRA Neck: Motion degraded acquisitions are of poor diagnostic quality. No gross evidence for hemodynamically significant internal carotid artery stenosis by NASCET criteria. The cervical vertebral arteries are segmentally visualized and patent where seen. The aortic arch, great vessel origins and proximal subclavian arteries cannot be evaluated on this non gadolinium exam. Impression: MRI Head: 1. No acute pathology identified. No evidence for mass, hemorrhage or recent infarct. 2. Mild to moderate small vessel ischemic change. MRA Head: Negative exam. No occlusions identified. MRA Neck: 1. Motion degraded acquisitions are of very limited diagnostic value. 2. No gross evidence for high-grade ICA stenosis by NASCET criteria. 3. Segments of both vertebral arteries are visualized. Dictated by Eldon Demarco MD @ Nov 08 2017 7:40AM (Electronic Signature) Report Signed by Proxy. BONI
--- NOTE | 2017-11-08 10:35 | MR ---
EXAM DATE: 11/07/17 PATIENT'S AGE: 62 Patient: KIERSTEN ZARATE Facility: [place], [place] Site . Site : 1955 Study: MRI Neck Angio Angio [id number]/26/2018 8:21:31 PM Ordering Physician: Dominique Burton Final Report: Indication: Stroke. Technique: MRI Head: Performed without IV contrast. MRA Head: Performed without IV contrast. MRA Neck: Performed without IV contrast. Comparison: None are available. Findings: MRI Head: No acute infarct or restricted diffusion is identified small foci of T2 signal abnormality are scattered in the cerebral white matter and central letty, typical for [id number] small vessel ischemic change. No evidence for recent or remote i hemorrhage. No intracranial mass effect. No ventricular obstruction. No signal changes in the brain parenchyma. Grossly normal flow voids are maintained in the directly imaged intracranial vascular structures. The craniovertebral junction is unremarkable, with a patent foramen magnum. Both temporal bones are clear. There is trace membrane thickening in the ethmoid paranasal sinuses. MRA Head: No occlusion/filling defect or acquired arterial stenosis identified. No aneurysm or vascular malformation seen. MRA Neck: Motion degraded acquisitions are of poor diagnostic quality. No gross evidence for hemodynamically significant internal carotid artery stenosis by NASCET criteria. The cervical vertebral arteries are segmentally visualized and patent where seen. The aortic arch, great vessel origins and proximal subclavian arteries cannot be evaluated on this non gadolinium exam. Impression: MRI Head: 1. No acute pathology identified. No evidence for mass, hemorrhage or recent infarct. 2. Mild to moderate small vessel ischemic change. MRA Head: Negative exam. No occlusions identified. MRA Neck: 1. Motion degraded acquisitions are of very limited diagnostic value. 2. No gross evidence for high-grade ICA stenosis by NASCET criteria. 3. Segments of both vertebral arteries are visualized. . Dictated by Eldon Demarco MD @ Nov 08 2017 7:53AM (Electronic Signature) Report Signed by Proxy. [facility]ATRIC CENTERKim
--- NOTE | 2017-11-09 13:20 | ECHO ---
EXAM DATE: 11/07/17 PATIENT'S AGE: 62 The echocardiogram report can be seen in this patient's EMR (Electronic Medical Record) in the Reports section. The report has also been scanned into PACs. BONI
== END 2017-11-08 10:10 | disposition home or self-care (01) ==
LOC: MW.ED 12:07 → MW.MS 14:02
PROVIDERS: ADMIT Internal Medicine; ATTEND Internal Medicine
DX: R53.1 Weakness (principal); I11.0 Hypertensive heart disease with heart failure; I50.9 Heart failure, unspecified; J44.9 Chronic obstructive pulmonary disease, unspecified; E78.5 Hyperlipidemia, unspecified; E11.40 Type 2 diabetes mellitus with diabetic neuropathy, unspecified; D64.9 Anemia, unspecified; E78.00 Pure hypercholesterolemia, unspecified; Z86.73 Personal history of transient ischemic attack (TIA), and cerebral infarction without residual deficits; Z87.891 Personal history of nicotine dependence; Z79.84 Long term (current) use of oral hypoglycemic drugs; Z79.899 Other long term (current) drug therapy; Z88.1 Allergy status to other antibiotic agents; Z98.84 Bariatric surgery status
CPT/HCPCS: 36415; 70450; 70544; 70547; 70551; 80053; 80061; 82607; 82746; 83036; 84443; 84484; 85025; 85027; 85610; 85730; 93005; 93306; 96360; 96361; 96372; 97161; 99285; A9270; G0378; J1650; J7040

== ENCOUNTER 2018-12-24 03:03 | Inpatient (IN) | payer MEDICARE, OTHER ==
[2018-12-24] MEDS ORDERED: Ondansetron 4 MG/2 ML SDV IVPUSH ONE ×2 (03:23→04:03)
[2018-12-24] MEDS ORDERED: Sodium Chloride 0.9% 10 ML Syringe FLUSH PRN (03:23)
[2018-12-24] MEDS ORDERED: Sodium Chloride 0.9% 1,000 ML IV ONE (03:23)
[2018-12-24] MEDS ORDERED: Pantoprazole 40 MG Vial IVPUSH ONE (03:23)
[2018-12-24] MEDS ORDERED: Morphine 2 MG/ML Syringe IVPUSH ONE (03:23)
[2018-12-24] MEDS ORDERED: Sodium Chloride 0.9% 2.5 ML Syringe FLUSH PRN (03:23)
--- NOTE | 2018-12-24 03:28 | EDM.PDOC ---
ED HPI GENERAL MEDICAL PROBLEM - General Chief Complaint: Abdominal Pain Stated Complaint: THROWING UP Time Seen by Provider: 12/24/18 03:14 - History of Present Illness INITIAL COMMENTS - FREE TEXT/NARRATIVE: HISTORY AND PHYSICAL: History of present illness: The patient is a 63-year-old female with a history of type 2 diabetes hypercholesterolemia multiple abdominal surgeries including gastric bypass hysterectomy appendectomy who has had issues with bowel obstruction due to adhesions and has had surgeries for lysis of adhesions and has been doing well for the last 3 years and presents with complaints of nausea and vomiting yesterday episodically and then more continuously since 8:30 PM, 7 hours ago. She says her abdominal pain is in the upper abdomen and she feels very bloated and she has to take Colace twice a day in order to have normal bowel movements. She says that since her admission here in September 2015 she has not had any problems or issues with her bowels or bowel obstructions or the adhesions and she does take the lindsey regularly which keeps her having bowel movements on a daily basis. She said her bowel movement today was very small and she had to force it out and she knew that she was blocked up and is here for care. She has not had a fever chest pain or shortness of breath no flank pain and has had decreased urine output in the last 12 hours. The pain is a bloated crampy discomforting sensation and she says she cannot keep anything by mouth down and everything is coming up. She has not been able to take anything over-the- counter to help with this. She says that since her admission here in September 2015 , the reports of which I have read, she has been doing very well without any issues. She said that she has had at least 3 surgeries for lysis of adhesions after all of her major surgeries. She says that she did eat more beans and usual but she doesn't recall anything new or change in her diet recently. She did not drink as much water as usual over the last 24 hours She says that the nausea and vomiting did occur during the day but her symptoms accelerated at 8:30 PM with the intractable vomiting and the pain and distention /bloatedness. Review of systems: As per history of present illness and below otherwise all systems reviewed and negative. Past medical history: As per history of present illness and as reviewed below otherwise noncontributory. Surgical history: As per history of present illness and as reviewed below otherwise noncontributory. Social history: No reported history of drug or alcohol abuse. Family history: As per history of present illness and as reviewed below otherwise noncontributory. Physical exam: General: Well-developed well-nourished female who looks uncomfortable the room but is nontoxic and vital signs are noted by me. Patient moves easily in bed HEENT: Atraumatic, normocephalic, pupils reactive, negative for conjunctival pallor or scleral icterus, mucous membranes very dry, throat clear, neck supple , nontender, trachea midline. Lungs: Clear to auscultation, breath sounds equal bilaterally, chest nontender. Heart: S1S2, regular, negative for clicks, rubs, or JVD. Abdomen: Soft, abdomen is distended and there is tympany on percussion of the upper abdomen from the umbilicus superiorly and bilaterally, there is diffuse upper abdominal tenderness which is mild without rebound or guarding, Negative for masses or hepatosplenomegaly. Negative for costovertebral tenderness. Pelvis: Stable nontender. Genitourinary: Deferred. Rectal: Deferred. Extremities: Atraumatic, negative for cords or calf pain. Neurovascular unremarkable. Neuro: Awake, alert, oriented. Cranial nerves II through XII unremarkable. Cerebellum unremarkable. Motor and sensory unremarkable throughout. Exam nonfocal. Diagnostics: CBC CMP amylase lipase lactate UA with reflex CT scan of the abdomen and pelvis Therapeutics: IV, IV fluids Zofran Protonix morphine Dilaudid Reglan Benadryl, Lab has notified us that despite trying to different samples from this patient the machine is not working properly and that they are currently trying to get it functioning. 0510: Lab has made us aware that they're going to try to run a sample. I will pass on to nursing to make sure that that lactic acid is drawn and performed either here from the emergency department or after the machine is functioning and after the patient goes to the floor. 0512: case was discussed with the hospitalist Dr. Gunderson; she accepts the patient for admission and would like her to be inpatient. She also is unsure of why the lipase is elevated but as the treatment is the same as bowel obstruction we will do lactated Ringer's and place an NG tube. Surgery to be on consult 0520: Case was discussed with Dr. Castillo who will be on consult and see the patient later this morning. He agrees with nothing by mouth IV fluids and NG tube placement. All testing results are discussed with the patient and family at bedside. She is aware of the need for admission and an NG tube placement. She is also aware of her elevated lipase and the unclear etiology behind that and we will continue to manage that. The patient overall does feel better and there is been improvement in the pain and no more vomiting Impression: Small bowel obstruction, elevated lipase Definitive disposition and diagnosis as appropriate pending reevaluation and review of above. abdomen Pain Score (Numeric/FACES): 10 - Related Data Allergies Allergy/AdvReac Type Severity Reaction Status Date / Time cefoxitin [From Mefoxin] Allergy Anaphylactic Verified 12/24/18 03:16 Shock Home Meds: Home Meds Amitriptyline HCl 10 mg PO BEDTIME 11/07/17 [History] DULoxetine HCl [Cymbalta] 60 mg PO DAILY 11/07/17 [History] Furosemide 20 mg PO QAM 11/07/17 [History] Simvastatin [Zocor] 40 mg PO BEDTIME 11/07/17 [History] hydroCHLOROthiazide [Hydrochlorothiazide] 25 mg PO QAM 11/07/17 [History] metFORMIN HCl [Metformin HCl] 500 mg PO BID 11/07/17 [History] ALPRAZolam [Alprazolam] 0.5 mg PO BEDTIME 12/24/18 [History] Gabapentin [Neurontin] 100 mg PO BID 12/24/18 [History] Losartan [Cozaar] 50 mg PO DAILY 12/24/18 [History] Past Medical History HEENT History: Reports: Cataract Cardiovascular History: Reports: High Cholesterol, Hypertension, Other (See Below) Other Cardiovascular History: enlarged left ventricle Respiratory History: Reports: Asthma, COPD, Other (See Below) Other Respiratory History: Valley disease, emphasima Gastrointestinal History: Reports: Other (See Below) Other Gastrointestinal History: gastric bypass Genitourinary History: Reports: Renal Calculus [employer] History: Reports: Endometriosis Musculoskeletal History: Reports: Back Pain, Chronic Other Musculoskeletal History: foot and wrist surgery Neurological History: Reports: Neuropathy, Diabetic Other Neuro History: Fibromyalgia Psychiatric History: Reports: None Endocrine/Metabolic History: Reports: Diabetes, Type II Immunologic History: Reports: None Oncologic (Cancer) History: Reports: None Dermatologic History: Reports: None - Infectious Disease History Infectious Disease History: Reports: Chicken Pox, Measles, Mumps - Past Surgical History GI Surgical History: Reports: Appendectomy, Cholecystectomy Neurological Surgical History: Reports: C-Spine Social & Family History - Family History Family Medical History: Noncontributory HEENT: Reports: None Cardiac: Reports: Heart Failure, Hypertension, [place], Pacemaker Respiratory: Reports: COPD GI: Reports: None OBGYN: Reports: None Musculoskeletal: Reports: Arthritis Psychiatric: Reports: Bipolar, Depression, OCD Endocrine/Metabolic: Reports: None Dermatologic: Reports: Eczema Oncologic: Reports: Lymphoma, Ovarian - Caffeine Use Caffeine Use: Reports: Coffee ED ROS GENERAL - Review of Systems Review Of Systems: ROS reveals no pertinent complaints other than HPI. ED EXAM, GENERAL - Physical Exam Exam: See Below (See dictation) Course - Vital Signs Last Recorded V/S: Last Vital Signs Temp 35.6 C 12/24/18 03:12 Pulse 69 12/24/18 05:08 Resp 18 12/24/18 05:08 BP 156/55 H 12/24/18 05:08 Pulse Ox 98 12/24/18 05:08 - Orders/Labs/Meds Orders: Active Orders 24 hr Category Date Time Status Patient Status [ADT] Stat ADT 12/24/18 05:17 Ordered Notify Provider Consults [RC] ASDIRECTED Care 12/24/18 05:17 Ordered Consult to Physician [CONS] Stat Cons 12/24/18 05:16 Ordered LACTATE WITH REFLEX [BG] Stat Lab 12/24/18 03:22 Ordered UA RFX [place] AND CULT IF INDIC [URIN] Stat Lab 12/24/18 03:22 Ordered Lactated Ringers @ 150 MLS/HR(1,000ml) Med 12/24/18 05:30 Ordered Lactated Ringers [Ringers, Lactated] 1,000 ml IV ASDIRECTED Sodium Chloride 0.9% [Normal Saline] 1,000 ml Med 12/24/18 04:30 Active IV ASDIRECTED Sodium Chloride 0.9% [Saline Flush] Med 12/24/18 03:23 Active 10 ml FLUSH ASDIRECTED PRN Sodium Chloride 0.9% [Saline Flush] Med 12/24/18 03:23 Active 2.5 ml FLUSH ASDIRECTED PRN Nasogastric Orogastric Tube Insertion [OM.PC] Stat Oth 12/24/18 05:20 Ordered Saline Lock Insert [OM.PC] Stat Oth 12/24/18 03:22 Ordered Medication Orders Sodium Chloride (Normal Saline) 1,000 mls @ 150 mls/hr IV ASDIRECTED CLAIRE Last Infusion: 12/24/18 05:06 Dose: 150 mls/hr Admin: 12/24/18 04:35 Dose: 500 mls/hr Lactated Ringer's (Ringers, Lactated) 1,000 mls @ 150 mls/hr IV ASDIRECTED CLAIRE Sodium Chloride (Saline Flush) 10 ml FLUSH ASDIRECTED PRN PRN Reason: Keep Vein Open Last Admin: 12/24/18 03:39 Dose: 10 ml Sodium Chloride (Saline Flush) 2.5 ml FLUSH ASDIRECTED PRN PRN Reason: Keep Vein Open Labs: Laboratory Tests 12/24/18 12/24/18 Range/Units 03:35 03:35 WBC 14.12 H (4.0-11.0) K/uL RBC 4.61 (4.30-5.90) M/uL Hgb 10.4 L (12.0-16.0) g/dL Hct 35.0 L (36.0-46.0) % MCV 75.9 L (80.0-98.0) fL MCH 22.6 L (27.0-32.0) pg MCHC 29.7 L (31.0-37.0) g/dL RDW Std Deviation 42.8 (28.0-62.0) fl RDW Coeff of Cynthia 16 H (11.0-15.0) % Plt Count 284 (150-400) K/uL MPV 12.00 (7.40-12.00) fL Neut % (Auto) 76.2 (48.0-80.0) % Lymph % (Auto) 16.4 (16.0-40.0) % Summers % (Auto) 6.4 (0.0-15.0) % Eos % (Auto) 0.6 (0.0-7.0) % Baso % (Auto) 0.4 (0.0-1.5) % Neut # (Auto) 10.8 H (1.4-5.7) K/uL Lymph # (Auto) 2.3 (0.6-2.4) K/uL Summers # (Auto) 0.9 H (0.0-0.8) K/uL Eos # (Auto) 0.1 (0.0-0.7) K/uL Baso # (Auto) 0.1 (0.0-0.1) K/uL Nucleated RBC % 0.0 /100WBC Nucleated RBCs # 0 K/uL Sodium 142 (136-145) mmol/L Potassium 4.8 (3.5-5.1) mmol/L Chloride 106 (98-107) mmol/L Carbon Dioxide 21.7 (21.0-32.0) mmol/L BUN 19 H (7.0-18.0) mg/dL Creatinine 1.1 H (0.6-1.0) mg/dL Est Cr Clr Drug Dosing 51.43 mL/min Estimated GFR (MDRD) 49.8 ml/min Glucose 154 H (74-106) mg/dL Calcium 9.2 (8.5-10.1) mg/dL Total Bilirubin 0.2 (0.2-1.0) mg/dL AST 29 (15-37) IU/L ALT 29 (14-63) IU/L Alkaline Phosphatase 161 H (46-116) U/L Total Protein 8.2 (6.4-8.2) g/dL Albumin 4.3 (3.4-5.0) g/dL Globulin 3.9 (2.6-4.0) g/dL Albumin/Globulin Ratio 1.1 (0.9-1.6) Amylase 89 (25-115) U/L Lipase 2296 H (73-393) U/L Meds: Medications Generic Name Dose Route Start Last Admin Trade Name Freq PRN Reason Stop Dose Admin Sodium Chloride 1,000 mls @ 150 mls/hr 12/24/18 04:30 12/24/18 05:06 Normal Saline IV 150 mls/hr ASDIRECTED CLAIRE Infusion Lactated Ringer's 1,000 mls @ 150 mls/hr 12/24/18 05:30 Ringers, Lactated IV ASDIRECTED CLAIRE Sodium Chloride 10 ml 12/24/18 03:23 12/24/18 03:39 Saline Flush FLUSH 10 ml ASDIRECTED PRN Administration Keep Vein Open Sodium Chloride 2.5 ml 12/24/18 03:23 Saline Flush FLUSH ASDIRECTED PRN Keep Vein Open Discontinued Medications Generic Name Dose Route Start Last Admin Trade Name Enrikeq PRN Reason Stop Dose Admin Diphenhydramine HCl 25 mg 12/24/18 04:27 12/24/18 04:35 Benadryl IVPUSH 12/24/18 04:28 25 mg ONETIME ONE Administration Hydromorphone HCl 1 mg 12/24/18 04:40 12/24/18 04:47 Dilaudid IVPUSH 12/24/18 04:41 1 mg ONETIME ONE Administration Sodium Chloride 1,000 mls @ 999 mls/hr 12/24/18 03:23 12/24/18 03:39 Normal Saline IV 12/24/18 04:23 999 mls/hr STAT ONE Administration Sodium Chloride Confirm 12/24/18 03:35 12/24/18 03:40 Normal Saline Administered 12/24/18 03:36 20 mls/hr Dose Administration 20 mls @ as directed .ROUTE .STK-MED ONE Metoclopramide HCl 10 mg 12/24/18 04:27 12/24/18 04:36 Reglan IV 12/24/18 04:28 10 mg ONETIME ONE Administration Morphine Sulfate 4 mg 12/24/18 03:23 12/24/18 03:39 Morphine IVPUSH 12/24/18 03:24 4 mg ONETIME ONE Administration Ondansetron HCl 4 mg 12/24/18 03:23 12/24/18 03:39 Zofran IVPUSH 12/24/18 03:24 4 mg ONETIME ONE Administration Ondansetron HCl 4 mg 12/24/18 04:03 12/24/18 04:06 Zofran IVPUSH 12/24/18 04:04 4 mg ONETIME ONE Administration Ondansetron HCl Confirm 12/24/18 04:04 12/24/18 04:07 Zofran Administered 12/24/18 04:05 Not Given Dose 4 mg .ROUTE .STK-MED ONE Pantoprazole Sodium 80 mg 12/24/18 03:23 12/24/18 03:39 Protonix Iv IVPUSH 12/24/18 03:24 80 mg .BOLUS ONE Administration Departure - Departure Time of Disposition: 05:30 Disposition: Admitted As Inpatient 64 Condition: Fair Clinical Impression: Small bowel obstruction, Elevated lipase - Discharge Information Referrals: PCP,None [Primary Care Provider] - Forms: ED Department Discharge - My Orders Last 24 Hours: My Active Orders 12/24/18 03:22 LACTATE WITH REFLEX [BG] Stat UA RFX [place] AND CULT IF INDIC [URIN] Stat Saline Lock Insert [OM.PC] Stat 12/24/18 03:23 Sodium Chloride 0.9% [Saline Flush] 10 ml FLUSH ASDIRECTED PRN Sodium Chloride 0.9% [Saline Flush] 2.5 ml FLUSH ASDIRECTED PRN 12/24/18 04:30 Sodium Chloride 0.9% [Normal Saline] 1,000 ml IV ASDIRECTED 12/24/18 05:16 Consult to Physician [CONS] Stat 12/24/18 05:17 Patient Status [ADT] Stat Notify Provider Consults [RC] ASDIRECTED 12/24/18 05:20 Nasogastric Orogastric Tube Insertion [OM.PC] Stat 12/24/18 05:30 Lactated Ringers @ 150 MLS/HR(1,000ml) Lactated Ringers [Ringers, Lactated] 1, 000 ml IV ASDIRECTED - Assessment/Plan Last 24 Hours: My Active Orders 12/24/18 03:22 LACTATE WITH REFLEX [BG] Stat UA RFX [place] AND CULT IF INDIC [URIN] Stat Saline Lock Insert [OM.PC] Stat 12/24/18 03:23 Sodium Chloride 0.9% [Saline Flush] 10 ml FLUSH ASDIRECTED PRN Sodium Chloride 0.9% [Saline Flush] 2.5 ml FLUSH ASDIRECTED PRN 12/24/18 04:30 Sodium Chloride 0.9% [Normal Saline] 1,000 ml IV ASDIRECTED 12/24/18 05:16 Consult to Physician [CONS] Stat 12/24/18 05:17 Patient Status [ADT] Stat Notify Provider Consults [RC] ASDIRECTED 12/24/18 05:20 Nasogastric Orogastric Tube Insertion [OM.PC] Stat 12/24/18 05:30 Lactated Ringers @ 150 MLS/HR(1,000ml) Lactated Ringers [Ringers, Lactated] 1, 000 ml IV ASDIRECTED
[2018-12-24] MEDS ORDERED: Sodium Chloride 0.9% 20 ML ONE (03:35)
[2018-12-24 03:49] LABS: CARBON DIOXIDE,CO2 21.7 mmol/L (21.0-32.0); POTASSIUM,K 4.8 mmol/L (3.5-5.1)
[2018-12-24] MEDS ORDERED: Ondansetron 4 MG/2 ML SDV ONE (04:04)
[2018-12-24] MEDS ORDERED: Metoclopramide 10 MG/2 ML SDV IV ONE (04:27)
[2018-12-24] MEDS ORDERED: diphenhydrAMINE 50 MG/ML SDV IVPUSH ONE (04:27)
[2018-12-24] MEDS ORDERED: Sodium Chloride 0.9% 1,000 ML IV SCH (04:30)
[2018-12-24] MEDS ORDERED: HYDROmorphone 1 MG/ML Syringe IVPUSH ONE (04:40)
--- NOTE | 2018-12-24 04:50 | CT ---
INDICATION: Abdominal pain, vomiting for 8 hours, history multiple abdominal surgeries TECHNIQUE: CT Abdomen and pelvis without i.v. contrast. Coronal and sagittal reformats were obtained. COMPARISON: 07/28/2016 FINDINGS: Lower chest: Calcified granulomas are present in the lung bases bilaterally measuring up to 1.4 cm. Liver: Unremarkable. Spleen: Unremarkable. Pancreas: Unremarkable. Gallbladder: Unremarkable. Kidney: Unremarkable. No kidney or ureteral stones or obstruction seen. Adrenal: Unremarkable. Bowel: Patient is status post prior gastric bypass. The small bowel is fluid-filled and distended up to 3.3 cm with transition points suspected in the right lower quadrant. Severe sigmoid diverticulosis is present with no evidence of diverticulitis. The appendix is not identified. Vascular: Unremarkable. Lymph: Unremarkable. Peritoneum: Unremarkable. No pneumoperitoneum is seen. No significant ascites is noted. Pelvis: The patient is status post prior hysterectomy. Soft tissue: Unremarkable. Bone: Unremarkable for age. IMPRESSION: 1. The small bowel is fluid-filled and distended up to 3.3 cm with transition points suspected in the right lower quadrant. Findings are likely due to distal small bowel obstruction. Dictated by Estrada Best MD @ 12/24/2018 4:48:58 AM Please note that all CT scans at this facility use dose modulation, iterative reconstruction, and/or weight-based dosing when appropriate to reduce radiation dose to as low as reasonably achievable. Dictated by: Estrada Best MD @ 12/24/2018 04:49:04 (Electronically Signed)
[2018-12-24] MEDS ORDERED: Lactated Ringers 1,000 ML IV SCH (05:30)
--- NOTE | 2018-12-24 06:30 | CR ---
INDICATION: NG tube placement TECHNIQUE: Portable AP erect lower thorax and upper abdomen performed at 6 a.m. FINDINGS: The tip of the NG tube lies at the esophagogastric juncture. Optimally the tube could be advanced 10 cm further for positioning within the lower gastric body along the greater curvature of the stomach. IMPRESSION: Shallow NG placement. Dictated by Attila Portillo MD @ Dec 24 2018 6:27AM Signed by Dr. Attila Portillo @ Dec 24 2018 6:29AM
--- NOTE | 2018-12-24 08:27 | PCM.HP.2 ---
Addendum entered and electronically signed by Filippo Acuna MD 12/24 09:29: Original Note: <Filippo Acuna - Last Filed: 12/24/18 09:23> H&P History of Present Illness - General Date of Service: 12/24/18 Admit Problem/Dx: Admission Diagnosis/Problem Admission Diagnosis/Problem Intestinal obstruction - History of Present Illness Initial Comments - Free Text/Narative: 63 y/o female with history of multiple abdominal surgeries including gastric bypass presenting to the ER complaining of nausea, vomiting and abdominal pain for the past 2-3 days. Patient states that she has not been able to keep fluids or food down for the past couple of days. Denies any hematemesis. In the ER, CT abdomen/pelvis showed a distal small bowel obstruction. An NG tube was placed and general surgery consulted. Lactate was elevated at 2.8. This morning when I evaluated the patient, NG tube was suctioning brown gastric fluid. Patient was feeling better. Stated that she had not had a BM or passed gas since yesterday. In addition, she was noted to have an elevated lipase 2296. Denies any excessive alcohol intake. States she drank one glass of wine 2- 3 days ago. No chest pain, dyspnea, dysuria. abdomen Pain Score (Numeric/FACES): 10 - Related Data Allergies/Adverse Reactions: Allergies Allergy/AdvReac Type Severity Reaction Status Date / Time cefoxitin [From Mefoxin] Allergy Anaphylactic Verified 12/24/18 06:55 Shock Home Medications: Home Meds Amitriptyline HCl 10 mg PO BEDTIME 11/07/17 [History] DULoxetine HCl [Cymbalta] 60 mg PO DAILY 11/07/17 [History] Furosemide 20 mg PO QAM 11/07/17 [History] Simvastatin [Zocor] 40 mg PO BEDTIME 11/07/17 [History] hydroCHLOROthiazide [Hydrochlorothiazide] 25 mg PO QAM 11/07/17 [History] metFORMIN HCl [Metformin HCl] 500 mg PO BID 11/07/17 [History] ALPRAZolam [Alprazolam] 0.5 mg PO BEDTIME 12/24/18 [History] Gabapentin [Neurontin] 100 mg PO BID 12/24/18 [History] Losartan [Cozaar] 50 mg PO DAILY 12/24/18 [History] Past Medical History HEENT History: Reports: Cataract Other HEENT History: wears glasses Cardiovascular History: Reports: High Cholesterol, Hypertension, Other (See Below) Other Cardiovascular History: enlarged left ventricle Respiratory History: Reports: Asthma, COPD, Other (See Below) Other Respiratory History: Valley disease, emphasima Gastrointestinal History: Reports: Other (See Below) Other Gastrointestinal History: gastric bypass Genitourinary History: Reports: Renal Calculus FIELD SUPPORT REPRESENTATIVE History: Reports: Endometriosis Musculoskeletal History: Reports: Back Pain, Chronic Other Musculoskeletal History: foot and wrist surgery Neurological History: Reports: Neuropathy, Diabetic Other Neuro History: Fibromyalgia Psychiatric History: Reports: None Endocrine/Metabolic History: Reports: Diabetes, Type II Immunologic History: Reports: None Oncologic (Cancer) History: Reports: None Dermatologic History: Reports: None - Infectious Disease History Infectious Disease History: Reports: Chicken Pox, Measles, Mumps - Past Surgical History GI Surgical History: Reports: Appendectomy, Cholecystectomy Neurological Surgical History: Reports: C-Spine Social & Family History - Family History Family Medical History: Noncontributory HEENT: Reports: None Cardiac: Reports: Heart Failure, Hypertension, SC, Pacemaker Respiratory: Reports: COPD GI: Reports: None OBGYN: Reports: None Musculoskeletal: Reports: Arthritis Psychiatric: Reports: Bipolar, Depression, OCD Endocrine/Metabolic: Reports: None Dermatologic: Reports: Eczema Oncologic: Reports: Lymphoma, Ovarian - Tobacco Use Smoking Status *Q: Former Smoker Years of Tobacco use: 45 Used Tobacco, but Quit: Yes Month/Year Tobacco Last Used: 12 years ago Second Hand Smoke Exposure: No - Caffeine Use Caffeine Use: Reports: Soda - Recreational Drug Use Recreational Drug Use: No H&P Review of Systems - Review of Systems: Review Of Systems: Comprehensive ROS is negative, except as noted in HPI. Exam - Exam Exam: See Below - Vital Signs Vital Signs: Last Vital Signs Temp 36.2 C 12/24/18 06:17 Pulse 67 12/24/18 06:17 Resp 17 12/24/18 06:17 BP 156/59 H 12/24/18 06:17 Pulse Ox 96 12/24/18 06:17 Weight: 86.183 kg - Exam General: Alert, Oriented, Cooperative HEENT: Other (NG tube in place) Lungs: Clear to Auscultation, Normal Respiratory Effort, Wheezing. No: Crackles Cardiovascular: Regular Rate, Regular Rhythm GI/Abdominal Exam: Other (distended, hyperactive bowel sounds) Extremities: Normal Inspection, No Pedal Edema Skin: Warm, Dry - Patient Data Lab Results Last 24 hrs: Laboratory Results - last 24 hr 12/24/18 12/24/18 12/24/18 Range/Units 03:35 03:35 07:09 WBC 14.12 H (4.0-11.0) K/uL RBC 4.61 (4.30-5.90) M/uL Hgb 10.4 L (12.0-16.0) g/dL Hct 35.0 L (36.0-46.0) % MCV 75.9 L (80.0-98.0) fL MCH 22.6 L (27.0-32.0) pg MCHC 29.7 L (31.0-37.0) g/dL RDW Std Deviation 42.8 (28.0-62.0) fl RDW Coeff of Cnythia 16 H (11.0-15.0) % Plt Count 284 (150-400) K/uL MPV 12.00 (7.40-12.00) fL Neut % (Auto) 76.2 (48.0-80.0) % Lymph % (Auto) 16.4 (16.0-40.0) % [place] % (Auto) 6.4 (0.0-15.0) % Eos % (Auto) 0.6 (0.0-7.0) % Baso % (Auto) 0.4 (0.0-1.5) % Neut # (Auto) 10.8 H (1.4-5.7) K/uL Lymph # (Auto) 2.3 (0.6-2.4) K/uL [place] # (Auto) 0.9 H (0.0-0.8) K/uL Eos # (Auto) 0.1 (0.0-0.7) K/uL Baso # (Auto) 0.1 (0.0-0.1) K/uL Nucleated RBC % 0.0 /100WBC Nucleated RBCs # 0 K/uL Lactate 2.8 H (0.20-2.00) mmol/L Sodium 142 (136-145) mmol/L Potassium 4.8 (3.5-5.1) mmol/L Chloride 106 (98-107) mmol/L Carbon Dioxide 21.7 (21.0-32.0) mmol/L BUN 19 H (7.0-18.0) mg/dL Creatinine 1.1 H (0.6-1.0) mg/dL Est Cr Clr Drug Dosing 51.43 mL/min Estimated GFR (MDRD) 49.8 ml/min Glucose 154 H (74-106) mg/dL Calcium 9.2 (8.5-10.1) mg/dL Total Bilirubin 0.2 (0.2-1.0) mg/dL AST 29 (15-37) IU/L ALT 29 (14-63) IU/L Alkaline Phosphatase 161 H (46-116) U/L Total Protein 8.2 (6.4-8.2) g/dL Albumin 4.3 (3.4-5.0) g/dL Globulin 3.9 (2.6-4.0) g/dL Albumin/Globulin Ratio 1.1 (0.9-1.6) Amylase 89 (25-115) U/L Lipase 2296 H (73-393) U/L Ethyl Alcohol mg/dL 12/24/18 Range/Units 07:09 WBC (4.0-11.0) K/uL RBC (4.30-5.90) M/uL Hgb (12.0-16.0) g/dL Hct (36.0-46.0) % MCV (80.0-98.0) fL MCH (27.0-32.0) pg MCHC (31.0-37.0) g/dL RDW Std Deviation (28.0-62.0) fl RDW Coeff of Cynthia (11.0-15.0) % Plt Count (150-400) K/uL MPV (7.40-12.00) fL Neut % (Auto) (48.0-80.0) % Lymph % (Auto) (16.0-40.0) % [place] % (Auto) (0.0-15.0) % Eos % (Auto) (0.0-7.0) % Baso % (Auto) (0.0-1.5) % Neut # (Auto) (1.4-5.7) K/uL Lymph # (Auto) (0.6-2.4) K/uL [place] # (Auto) (0.0-0.8) K/uL Eos # (Auto) (0.0-0.7) K/uL Baso # (Auto) (0.0-0.1) K/uL Nucleated RBC % /100WBC Nucleated RBCs # K/uL Lactate (0.20-2.00) mmol/L Sodium (136-145) mmol/L Potassium (3.5-5.1) mmol/L Chloride (98-107) mmol/L Carbon Dioxide (21.0-32.0) mmol/L BUN (7.0-18.0) mg/dL Creatinine (0.6-1.0) mg/dL Est Cr Clr Drug Dosing mL/min Estimated GFR (MDRD) ml/min Glucose (74-106) mg/dL Calcium (8.5-10.1) mg/dL Total Bilirubin (0.2-1.0) mg/dL AST (15-37) IU/L ALT (14-63) IU/L Alkaline Phosphatase (46-116) U/L Total Protein (6.4-8.2) g/dL Albumin (3.4-5.0) g/dL Globulin (2.6-4.0) g/dL Albumin/Globulin Ratio (0.9-1.6) Amylase (25-115) U/L Lipase (73-393) U/L Ethyl Alcohol <3 mg/dL Result Diagrams: 12/24/18 03:35 12/24/18 03:35 Problem List Initiated/Reviewed/Updated: Yes Orders Last 24hrs: Active Orders 24 hr Category Date Time Status Patient Status [ADT] Stat ADT 12/24/18 05:17 Active Notify Provider Consults [RC] ASDIRECTED Care 12/24/18 05:17 Active Consult to Physician [CONS] Stat Cons 12/24/18 05:16 Active LIPID PANEL [CHEM] Routine Lab 12/24/18 08:26 Ordered UA RFX [place] AND CULT IF INDIC [URIN] Stat Lab 12/24/18 03:22 Ordered Lactated Ringers [Ringers, Lactated] 1,000 ml Med 12/24/18 05:30 Active IV ASDIRECTED Sodium Chloride 0.9% [Normal Saline] 1,000 ml Med 12/24/18 04:30 Active IV ASDIRECTED Sodium Chloride 0.9% [Saline Flush] Med 12/24/18 03:23 Active 10 ml FLUSH ASDIRECTED PRN Sodium Chloride 0.9% [Saline Flush] Med 12/24/18 03:23 Active 2.5 ml FLUSH ASDIRECTED PRN Nasogastric Orogastric Tube Insertion [OM.PC] Stat Ot 12/24/18 05:20 Ordered Saline Lock Insert [OM.PC] Stat Ot 12/24/18 03:22 Ordered Medication Orders Sodium Chloride (Normal Saline) 1,000 mls @ 150 mls/hr IV ASDIRECTED CLAIRE Last Infusion: 12/24/18 05:06 Dose: 150 mls/hr Admin: 12/24/18 04:35 Dose: 500 mls/hr Lactated Ringer's (Ringers, Lactated) 1,000 mls @ 150 mls/hr IV ASDIRECTED CLAIRE Last Admin: 12/24/18 05:58 Dose: 150 mls/hr Sodium Chloride (Saline Flush) 10 ml FLUSH ASDIRECTED PRN PRN Reason: Keep Vein Open Last Admin: 12/24/18 03:39 Dose: 10 ml Sodium Chloride (Saline Flush) 2.5 ml FLUSH ASDIRECTED PRN PRN Reason: Keep Vein Open Assessment/Plan Comment:: A: 1. Distal small bowel obstruction 2. Acute pancreatitis 3. Acute kidney injury 4. Elevated lactic acid 5. Leukocytosis P: 1. Consulted with Dr. Castillo, general surgery for SBO. Continue NG tube. Will continue with IV NS 150 ml/hr. For acute pancreatitis, unclear etiology. patient denies excessive alcohol intake. No elevated LFT so unlikely it's biliary obstruction. Will monitor for now and pain control. Will check lactic acid q5H until normal to check for bowel ischemia if increasing. Dispo: 2-3 days <Charles Gunderson - Last Filed: 12/25/18 14:05> H&P History of Present Illness - General Admit Problem/Dx: Admission Diagnosis/Problem Admission Diagnosis/Problem Intestinal obstruction Exam - Vital Signs Vital Signs: Last Vital Signs Temp 36.6 C 12/24/18 07:00 Pulse 70 12/24/18 07:00 Resp 14 12/24/18 07:00 BP 130/58 L 12/24/18 07:00 Pulse Ox 98 12/24/18 07:00 - Patient Data Lab Results Last 24 hrs: Laboratory Results - last 24 hr 12/24/18 12/24/18 12/24/18 Range/Units 03:35 03:35 07:09 WBC 14.12 H (4.0-11.0) K/uL RBC 4.61 (4.30-5.90) M/uL Hgb 10.4 L (12.0-16.0) g/dL Hct 35.0 L (36.0-46.0) % MCV 75.9 L (80.0-98.0) fL MCH 22.6 L (27.0-32.0) pg MCHC 29.7 L (31.0-37.0) g/dL RDW Std Deviation 42.8 (28.0-62.0) fl RDW Coeff of Cynthia 16 H (11.0-15.0) % Plt Count 284 (150-400) K/uL MPV 12.00 (7.40-12.00) fL Neut % (Auto) 76.2 (48.0-80.0) % Lymph % (Auto) 16.4 (16.0-40.0) % [place] % (Auto) 6.4 (0.0-15.0) % Eos % (Auto) 0.6 (0.0-7.0) % Baso % (Auto) 0.4 (0.0-1.5) % Neut # (Auto) 10.8 H (1.4-5.7) K/uL Lymph # (Auto) 2.3 (0.6-2.4) K/uL [place] # (Auto) 0.9 H (0.0-0.8) K/uL Eos # (Auto) 0.1 (0.0-0.7) K/uL Baso # (Auto) 0.1 (0.0-0.1) K/uL Nucleated RBC % 0.0 /100WBC Nucleated RBCs # 0 K/uL Lactate 2.8 H (0.20-2.00) mmol/L Sodium 142 (136-145) mmol/L Potassium 4.8 (3.5-5.1) mmol/L Chloride 106 (98-107) mmol/L Carbon Dioxide 21.7 (21.0-32.0) mmol/L BUN 19 H (7.0-18.0) mg/dL Creatinine 1.1 H (0.6-1.0) mg/dL Est Cr Clr Drug Dosing 51.43 mL/min Estimated GFR (MDRD) 49.8 ml/min Glucose 154 H (74-106) mg/dL Hemoglobin A1c (4.5-6.2) % Calcium 9.2 (8.5-10.1) mg/dL Total Bilirubin 0.2 (0.2-1.0) mg/dL AST 29 (15-37) IU/L ALT 29 (14-63) IU/L Alkaline Phosphatase 161 H (46-116) U/L Total Protein 8.2 (6.4-8.2) g/dL Albumin 4.3 (3.4-5.0) g/dL Globulin 3.9 (2.6-4.0) g/dL Albumin/Globulin Ratio 1.1 (0.9-1.6) Triglycerides (0-200) mg/dL Cholesterol (50-200) mg/dL LDL Cholesterol, Calc (60-180) mg/dL VLDL Cholesterol (5-55) mg/dL HDL Cholesterol (40-60) mg/dL Cholesterol/HDL Ratio (3.3-6.0) Amylase 89 (25-115) U/L Lipase 2296 H (73-393) U/L Urine Color Urine Appearance Urine pH (5.0-8.0) Ur Specific [place] (1.001-1.035) Urine Protein (NEGATIVE) mg/dL Urine Glucose (UA) (NEGATIVE) mg/dL Urine Ketones (NEGATIVE) mg/dL Urine Occult Blood (NEGATIVE) Urine Nitrite (NEGATIVE) Urine Bilirubin (NEGATIVE) Urine Urobilinogen (<2.0) EU/dL Ur Leukocyte Esterase (NEGATIVE) Ethyl Alcohol mg/dL 12/24/18 12/24/18 12/24/18 Range/Units 07:09 07:09 07:13 WBC (4.0-11.0) K/uL RBC (4.30-5.90) M/uL Hgb (12.0-16.0) g/dL Hct (36.0-46.0) % MCV (80.0-98.0) fL MCH (27.0-32.0) pg MCHC (31.0-37.0) g/dL RDW Std Deviation (28.0-62.0) fl RDW Coeff of Cynthia (11.0-15.0) % Plt Count (150-400) K/uL MPV (7.40-12.00) fL Neut % (Auto) (48.0-80.0) % Lymph % (Auto) (16.0-40.0) % [place] % (Auto) (0.0-15.0) % Eos % (Auto) (0.0-7.0) % Baso % (Auto) (0.0-1.5) % Neut # (Auto) (1.4-5.7) K/uL Lymph # (Auto) (0.6-2.4) K/uL [place] # (Auto) (0.0-0.8) K/uL Eos # (Auto) (0.0-0.7) K/uL Baso # (Auto) (0.0-0.1) K/uL Nucleated RBC % /100WBC Nucleated RBCs # K/uL Lactate (0.20-2.00) mmol/L Sodium (136-145) mmol/L Potassium (3.5-5.1) mmol/L Chloride (98-107) mmol/L Carbon Dioxide (21.0-32.0) mmol/L BUN (7.0-18.0) mg/dL Creatinine (0.6-1.0) mg/dL Est Cr Clr Drug Dosing mL/min Estimated GFR (MDRD) ml/min Glucose (74-106) mg/dL Hemoglobin A1c 6.9 H (4.5-6.2) % Calcium (8.5-10.1) mg/dL Total Bilirubin (0.2-1.0) mg/dL AST (15-37) IU/L ALT (14-63) IU/L Alkaline Phosphatase (46-116) U/L Total Protein (6.4-8.2) g/dL Albumin (3.4-5.0) g/dL Globulin (2.6-4.0) g/dL Albumin/Globulin Ratio (0.9-1.6) Triglycerides 197 (0-200) mg/dL Cholesterol 241 H (50-200) mg/dL LDL Cholesterol, Calc 165 (60-180) mg/dL VLDL Cholesterol 39 (5-55) mg/dL HDL Cholesterol 37 L (40-60) mg/dL Cholesterol/HDL Ratio 6.5 H (3.3-6.0) Amylase (25-115) U/L Lipase (73-393) U/L Urine Color Urine Appearance Urine pH (5.0-8.0) Ur Specific [place] (1.001-1.035) Urine Protein (NEGATIVE) mg/dL Urine Glucose (UA) (NEGATIVE) mg/dL Urine Ketones (NEGATIVE) mg/dL Urine Occult Blood (NEGATIVE) Urine Nitrite (NEGATIVE) Urine Bilirubin (NEGATIVE) Urine Urobilinogen (<2.0) EU/dL Ur Leukocyte Esterase (NEGATIVE) Ethyl Alcohol <3 mg/dL 12/24/18 12/24/18 Range/Units 08:40 11:35 WBC (4.0-11.0) K/uL RBC (4.30-5.90) M/uL Hgb (12.0-16.0) g/dL Hct (36.0-46.0) % MCV (80.0-98.0) fL MCH (27.0-32.0) pg MCHC (31.0-37.0) g/dL RDW Std Deviation (28.0-62.0) fl RDW Coeff of Cynthia (11.0-15.0) % Plt Count (150-400) K/uL MPV (7.40-12.00) fL Neut % (Auto) (48.0-80.0) % Lymph % (Auto) (16.0-40.0) % [place] % (Auto) (0.0-15.0) % Eos % (Auto) (0.0-7.0) % Baso % (Auto) (0.0-1.5) % Neut # (Auto) (1.4-5.7) K/uL Lymph # (Auto) (0.6-2.4) K/uL [place] # (Auto) (0.0-0.8) K/uL Eos # (Auto) (0.0-0.7) K/uL Baso # (Auto) (0.0-0.1) K/uL Nucleated RBC % /100WBC Nucleated RBCs # K/uL Lactate 2.1 H (0.20-2.00) mmol/L Sodium (136-145) mmol/L Potassium (3.5-5.1) mmol/L Chloride (98-107) mmol/L Carbon Dioxide (21.0-32.0) mmol/L BUN (7.0-18.0) mg/dL Creatinine (0.6-1.0) mg/dL Est Cr Clr Drug Dosing mL/min Estimated GFR (MDRD) ml/min Glucose (74-106) mg/dL Hemoglobin A1c (4.5-6.2) % Calcium (8.5-10.1) mg/dL Total Bilirubin (0.2-1.0) mg/dL AST (15-37) IU/L ALT (14-63) IU/L Alkaline Phosphatase (46-116) U/L Total Protein (6.4-8.2) g/dL Albumin (3.4-5.0) g/dL Globulin (2.6-4.0) g/dL Albumin/Globulin Ratio (0.9-1.6) Triglycerides (0-200) mg/dL Cholesterol (50-200) mg/dL LDL Cholesterol, Calc (60-180) mg/dL VLDL Cholesterol (5-55) mg/dL HDL Cholesterol (40-60) mg/dL Cholesterol/HDL Ratio (3.3-6.0) Amylase (25-115) U/L Lipase (73-393) U/L Urine Color YELLOW Urine Appearance CLEAR Urine pH 5.5 (5.0-8.0) Ur Specific [place] 1.025 (1.001-1.035) Urine Protein NEGATIVE (NEGATIVE) mg/dL Urine Glucose (UA) NEGATIVE (NEGATIVE) mg/dL Urine Ketones NEGATIVE (NEGATIVE) mg/dL Urine Occult Blood NEGATIVE (NEGATIVE) Urine Nitrite NEGATIVE (NEGATIVE) Urine Bilirubin NEGATIVE (NEGATIVE) Urine Urobilinogen 0.2 (<2.0) EU/dL Ur Leukocyte Esterase NEGATIVE (NEGATIVE) Ethyl Alcohol mg/dL Result Diagrams: 12/25/18 05:51 12/25/18 05:51 - Problem List (1) Small bowel obstruction SNOMED Code(s): 537325459 ICD Code: K56.69 - OTHER INTESTINAL OBSTRUCTION * DO NOT USE * Status: Acute Current Visit: Yes Problem List Initiated/Reviewed/Updated: Yes Orders Last 24hrs: Active Orders 24 hr Category Date Time Status Patient Status [ADT] Stat ADT 12/24/18 05:17 Active Blood Glucose Check, Bedside [RC] QIDACANDBED Care 12/24/18 08:28 Active Intake and Output [RC] Q12H Care 12/24/18 08:28 Active Nasogastric Tube Management [Gastrointestinal Tube Mgmt Care 12/24/18 08:42 Active ] [RC] ASDIRECTED Notify Provider Consults [RC] ASDIRECTED Care 12/24/18 05:17 Active Oxygen Therapy [RC] PRN Care 12/24/18 08:28 Active Up ad Carly [RC] ASDIRECTED Care 12/24/18 08:28 Active VTE/DVT Education [RC] PER UNIT ROUTINE Care 12/24/18 08:28 Active Vital Signs [RC] Q4H Care 12/24/18 08:28 Active Consult to Physician [CONS] Stat Cons 12/24/18 05:16 Active Nothing per Oral Now Diet [DIET] Diet 12/24/18 Breakfast Active Abdomen 2V AP Flat Upright [CR] DAILY Exams 12/25/18 08:30 Ordered Abdomen 2V AP Flat Upright [CR] DAILY Exams 12/26/18 08:30 Ordered LACTATE WITH REFLEX [BG] DAILY Lab 12/25/18 05:11 Ordered LACTATE WITH REFLEX [BG] DAILY Lab 12/26/18 05:11 Ordered LACTATE WITH REFLEX [BG] DAILY Lab 12/27/18 05:11 Ordered Enoxaparin [Lovenox] Med 12/24/18 08:30 Active 40 mg SUBCUT Q24H Ketorolac [Toradol] Med 12/24/18 08:28 Active 15 mg IVPUSH Q6H PRN Lactated Ringers [Ringers, Lactated] 1,000 ml Med 12/24/18 10:21 Active IV ASDIRECTED Morphine Med 12/24/18 08:28 Active 2 mg IVPUSH Q2H PRN Ondansetron [Zofran] Med 12/24/18 08:28 Active 4 mg IVPUSH Q4H PRN Pantoprazole [ProTONIX IV] 40 mg Med 12/24/18 09:00 Active Sodium Chloride 0.9% [Normal Saline] 10 ml IV DAILY Sodium Chloride 0.9% [Saline Flush] Med 12/24/18 03:23 Active 10 ml FLUSH ASDIRECTED PRN Sodium Chloride 0.9% [Saline Flush] Med 12/24/18 03:23 Active 2.5 ml FLUSH ASDIRECTED PRN Nasogastric Orogastric Tube Insertion [OM.PC] Stat Ot 12/24/18 05:20 Ordered Saline Lock Insert [OM.PC] Stat Ot 12/24/18 03:22 Ordered Resuscitation Status Routine Resus Stat 12/24/18 08:28 Ordered Medication Orders Enoxaparin Sodium (Lovenox) 40 mg SUBCUT Q24H [facility] Last Admin: 12/24/18 09:04 Dose: 40 mg Pantoprazole Sodium 40 mg/ (Sodium Chloride) 10 mls @ 300 mls/hr IV DAILY [facility] Last Admin: 12/24/18 09:04 Dose: 300 mls/hr Lactated Ringer's (Ringers, Lactated) 1,000 mls @ 150 mls/hr IV ASDIRECTED [facility] Ketorolac Tromethamine (Toradol) 15 mg IVPUSH Q6H PRN PRN Reason: Pain (moderate 4-6) Morphine Sulfate (Morphine) 2 mg IVPUSH Q2H PRN PRN Reason: Pain (severe 7-10) Stop: 12/25/18 08:29 Ondansetron HCl (Zofran) 4 mg IVPUSH Q4H PRN PRN Reason: Nausea Sodium Chloride (Saline Flush) 10 ml FLUSH ASDIRECTED PRN PRN Reason: Keep Vein Open Last Admin: 12/24/18 03:39 Dose: 10 ml Sodium Chloride (Saline Flush) 2.5 ml FLUSH ASDIRECTED PRN PRN Reason: Keep Vein Open Assessment/Plan Comment:: I performed a history and physical exam of the patient and discussed management with resident. I have reviewed the residents note and agree with documented findings and plan unless otherwise specified in my note.
[2018-12-24] MEDS ORDERED: Ketorolac 30 MG/ML SDV IVPUSH PRN (08:28)
[2018-12-24] MEDS ORDERED: Ondansetron 4 MG/2 ML SDV IVPUSH PRN (08:28)
--- NOTE | 2018-12-24 08:55 | PCM.CONS ---
<Wilfrid Larkin - Last Filed: 12/24/18 08:41> H&P History of Present Illness - General Date of Service: 12/24/18 Admit Problem/Dx: Admission Diagnosis/Problem Admission Diagnosis/Problem Intestinal obstruction Source of Information: Patient History Limitations: Reports: No Limitations - History of Present Illness Initial Comments - Free Text/Narative: Patient is a 63 yr old female with past medical history of DM type 2, hypercholesterolemia, s/p gastric bypass, who presented to the ED last night with nausea and vomiting. She has had a history of small bowel obstructions, last one being in 2016. She states that she had been nauseated and started throwing up last night. She was admitted to hospital and had an NG placed. She currently feels better, less distended, and not as nauseated. Onset of Symptoms: Reports: Gradual Duration of Symptoms: Reports: Getting Worse Location: Reports: Abdomen Severity: Moderate abdomen Pain Score (Numeric/FACES): 10 - Related Data Allergies/Adverse Reactions: Allergies Allergy/AdvReac Type Severity Reaction Status Date / Time cefoxitin [From Mefoxin] Allergy Anaphylactic Verified 12/24/18 06:55 Shock Home Medications: Home Meds Amitriptyline HCl 10 mg PO BEDTIME 11/07/17 [History] DULoxetine HCl [Cymbalta] 60 mg PO DAILY 11/07/17 [History] Furosemide 20 mg PO QAM 11/07/17 [History] Simvastatin [Zocor] 40 mg PO BEDTIME 11/07/17 [History] hydroCHLOROthiazide [Hydrochlorothiazide] 25 mg PO QAM 11/07/17 [History] metFORMIN HCl [Metformin HCl] 500 mg PO BID 11/07/17 [History] ALPRAZolam [Alprazolam] 0.5 mg PO BEDTIME 12/24/18 [History] Gabapentin [Neurontin] 100 mg PO BID 12/24/18 [History] Losartan [Cozaar] 50 mg PO DAILY 12/24/18 [History] Past Medical History HEENT History: Reports: Cataract Other HEENT History: wears glasses Cardiovascular History: Reports: High Cholesterol, Hypertension, Other (See Below) Other Cardiovascular History: enlarged left ventricle Respiratory History: Reports: Asthma, COPD, Other (See Below) Other Respiratory History: Valley disease, emphasima Gastrointestinal History: Reports: Other (See Below) Other Gastrointestinal History: gastric bypass Genitourinary History: Reports: Renal Calculus SENIOR ACCOUNTANT History: Reports: Endometriosis Musculoskeletal History: Reports: Back Pain, Chronic Other Musculoskeletal History: foot and wrist surgery Neurological History: Reports: Neuropathy, Diabetic Other Neuro History: Fibromyalgia Psychiatric History: Reports: None Endocrine/Metabolic History: Reports: Diabetes, Type II Immunologic History: Reports: None Oncologic (Cancer) History: Reports: None Dermatologic History: Reports: None - Infectious Disease History Infectious Disease History: Reports: Chicken Pox, Measles, Mumps - Past Surgical History GI Surgical History: Reports: Appendectomy, Cholecystectomy Neurological Surgical History: Reports: C-Spine Social & Family History - Family History Family Medical History: Noncontributory HEENT: Reports: None Cardiac: Reports: Heart Failure, Hypertension, CT, Pacemaker Respiratory: Reports: COPD GI: Reports: None OBGYN: Reports: None Musculoskeletal: Reports: Arthritis Psychiatric: Reports: Bipolar, Depression, OCD Endocrine/Metabolic: Reports: None Dermatologic: Reports: Eczema Oncologic: Reports: Lymphoma, Ovarian - Tobacco Use Smoking Status *Q: Former Smoker Years of Tobacco use: 45 Used Tobacco, but Quit: Yes Month/Year Tobacco Last Used: 12 years ago Second Hand Smoke Exposure: No - Caffeine Use Caffeine Use: Reports: Soda - Recreational Drug Use Recreational Drug Use: No H&P Review of Systems - Review of Systems: Review Of Systems: See Below General: Denies: Fever, Chills HEENT: Reports: No Symptoms Pulmonary: Reports: No Symptoms Cardiovascular: Reports: No Symptoms Gastrointestinal: Reports: Abdominal Pain, Distension, Nausea, Vomiting Genitourinary: Reports: No Symptoms Musculoskeletal: Reports: No Symptoms Skin: Reports: No Symptoms Exam - Exam Exam: See Below - Vital Signs Vital Signs: Last Vital Signs Temp 97.1 F 12/24/18 06:17 Pulse 67 12/24/18 06:17 Resp 17 12/24/18 06:17 BP 156/59 H 12/24/18 06:17 Pulse Ox 96 12/24/18 06:17 Weight: 190 lb - Exam Quality Assessment: Other (NG in place) General: Alert, Oriented Lungs: Clear to Auscultation, Normal Respiratory Effort Cardiovascular: Regular Rate, Regular Rhythm GI/Abdominal Exam: Soft, Non-Tender, Distended (mildly ), Abnormal Bowel Sounds (hypoactive) Extremities: No Pedal Edema Skin: Warm, Dry, Intact - Patient Data Lab Results Last 24 hrs: Laboratory Results - last 24 hr 12/24/18 12/24/18 12/24/18 Range/Units 03:35 03:35 07:09 WBC 14.12 H (4.0-11.0) K/uL RBC 4.61 (4.30-5.90) M/uL Hgb 10.4 L (12.0-16.0) g/dL Hct 35.0 L (36.0-46.0) % MCV 75.9 L (80.0-98.0) fL MCH 22.6 L (27.0-32.0) pg MCHC 29.7 L (31.0-37.0) g/dL RDW Std Deviation 42.8 (28.0-62.0) fl RDW Coeff of Cynthia 16 H (11.0-15.0) % Plt Count 284 (150-400) K/uL MPV 12.00 (7.40-12.00) fL Neut % (Auto) 76.2 (48.0-80.0) % Lymph % (Auto) 16.4 (16.0-40.0) % Dickey % (Auto) 6.4 (0.0-15.0) % Eos % (Auto) 0.6 (0.0-7.0) % Baso % (Auto) 0.4 (0.0-1.5) % Neut # (Auto) 10.8 H (1.4-5.7) K/uL Lymph # (Auto) 2.3 (0.6-2.4) K/uL Dickey # (Auto) 0.9 H (0.0-0.8) K/uL Eos # (Auto) 0.1 (0.0-0.7) K/uL Baso # (Auto) 0.1 (0.0-0.1) K/uL Nucleated RBC % 0.0 /100WBC Nucleated RBCs # 0 K/uL Lactate 2.8 H (0.20-2.00) mmol/L Sodium 142 (136-145) mmol/L Potassium 4.8 (3.5-5.1) mmol/L Chloride 106 (98-107) mmol/L Carbon Dioxide 21.7 (21.0-32.0) mmol/L BUN 19 H (7.0-18.0) mg/dL Creatinine 1.1 H (0.6-1.0) mg/dL Est Cr Clr Drug Dosing 51.43 mL/min Estimated GFR (MDRD) 49.8 ml/min Glucose 154 H (74-106) mg/dL Calcium 9.2 (8.5-10.1) mg/dL Total Bilirubin 0.2 (0.2-1.0) mg/dL AST 29 (15-37) IU/L ALT 29 (14-63) IU/L Alkaline Phosphatase 161 H (46-116) U/L Total Protein 8.2 (6.4-8.2) g/dL Albumin 4.3 (3.4-5.0) g/dL Globulin 3.9 (2.6-4.0) g/dL Albumin/Globulin Ratio 1.1 (0.9-1.6) Amylase 89 (25-115) U/L Lipase 2296 H (73-393) U/L Ethyl Alcohol mg/dL 12/24/18 Range/Units 07:09 WBC (4.0-11.0) K/uL RBC (4.30-5.90) M/uL Hgb (12.0-16.0) g/dL Hct (36.0-46.0) % MCV (80.0-98.0) fL MCH (27.0-32.0) pg MCHC (31.0-37.0) g/dL RDW Std Deviation (28.0-62.0) fl RDW Coeff of Cynthia (11.0-15.0) % Plt Count (150-400) K/uL MPV (7.40-12.00) fL Neut % (Auto) (48.0-80.0) % Lymph % (Auto) (16.0-40.0) % Dickey % (Auto) (0.0-15.0) % Eos % (Auto) (0.0-7.0) % Baso % (Auto) (0.0-1.5) % Neut # (Auto) (1.4-5.7) K/uL Lymph # (Auto) (0.6-2.4) K/uL Dickey # (Auto) (0.0-0.8) K/uL Eos # (Auto) (0.0-0.7) K/uL Baso # (Auto) (0.0-0.1) K/uL Nucleated RBC % /100WBC Nucleated RBCs # K/uL Lactate (0.20-2.00) mmol/L Sodium (136-145) mmol/L Potassium (3.5-5.1) mmol/L Chloride (98-107) mmol/L Carbon Dioxide (21.0-32.0) mmol/L BUN (7.0-18.0) mg/dL Creatinine (0.6-1.0) mg/dL Est Cr Clr Drug Dosing mL/min Estimated GFR (MDRD) ml/min Glucose (74-106) mg/dL Calcium (8.5-10.1) mg/dL Total Bilirubin (0.2-1.0) mg/dL AST (15-37) IU/L ALT (14-63) IU/L Alkaline Phosphatase (46-116) U/L Total Protein (6.4-8.2) g/dL Albumin (3.4-5.0) g/dL Globulin (2.6-4.0) g/dL Albumin/Globulin Ratio (0.9-1.6) Amylase (25-115) U/L Lipase (73-393) U/L Ethyl Alcohol <3 mg/dL Result Diagrams: 12/24/18 03:35 12/24/18 03:35 Imaging Impressions Last 24 hrs: CT abdomen and pelvis: Small bowel obstruction with possible transition point in right lower quadrant Abdominal XRay: NG in place with need for advancement Consult PN Assessment/Plan Procedures: Procedures ASSAY OF FOLIC ACID SERUM (11/07/17) ASSAY OF TROPONIN QUANT (11/07/17) ASSAY THYROID STIM HORMONE (11/07/17) COMPLETE CBC AUTOMATED (11/07/17) COMPLETE CBC W/AUTO DIFF WBC (11/07/17) COMPREHEN METABOLIC PANEL (11/07/17) CT ABD & PELV 1/> REGNS (07/28/16) CT HEAD/BRAIN W/O DYE (11/07/17) ELECTROCARDIOGRAM TRACING (11/07/17) EMERGENCY DEPT VISIT (11/07/17) GLYCOSYLATED HEMOGLOBIN TEST (11/07/17) HYDRATE IV INFUSION ADD-ON (11/07/17) HYDRATION IV INFUSION INIT (11/07/17) LIPID PANEL (11/07/17) MR ANGIOGRAPHY HEAD W/O DYE (11/07/17) MR ANGIOGRAPHY NECK W/O DYE (11/07/17) MRI BRAIN STEM W/O & W/DYE (09/15/16) MRI BRAIN STEM W/O DYE (11/07/17) MRI LUMBAR SPINE W/O & W/DYE (09/15/16) MRI LUMBAR SPINE W/O DYE (09/12/18) PROTHROMBIN TIME (11/07/17) PT EVAL LOW COMPLEX 20 MIN (11/07/17) ROUTINE VENIPUNCTURE (11/07/17) THER/PROPH/DIAG INJ SC/IM (11/07/17) THERAPEUTIC EXERCISES (11/24/16) THROMBOPLASTIN TIME PARTIAL (11/07/17) TTE W/DOPPLER COMPLETE (11/07/17) US EXAM ABDOM COMPLETE (10/05/15) VITAMIN B-12 (11/07/17) X-RAY UPPER GI&SMALL INTEST (01/12/16) (1) Small bowel obstruction SNOMED Code(s): 837576248 Code(s): K56.69 - OTHER INTESTINAL OBSTRUCTION * DO NOT USE * Current Visit : Yes Assessment:: 63 yr old female with hx of multiple abdominal surgeries and previous small bowel obstructions. Previously she has been able to be managed conservatively with decompression and bowel rest. Problem List Initiated/Reviewed/Updated: Yes Plan: -NG to Low intermittent wall suction -Recommend PPI while NG in place -NPO -IV fluids -Continue conservative management -Abdominal xrays ordered <Deng Castillo - Last Filed: 12/24/18 09:39> H&P History of Present Illness - General Admit Problem/Dx: Admission Diagnosis/Problem Admission Diagnosis/Problem Intestinal obstruction Past Medical History - Past Surgical History Female Surgical History: Reports: Hysterectomy, Salpingo-Oophorectomy Exam - Vital Signs Vital Signs: Last Vital Signs Temp 97.1 F 12/24/18 06:17 Pulse 67 12/24/18 06:17 Resp 17 12/24/18 06:17 BP 156/59 H 12/24/18 06:17 Pulse Ox 96 12/24/18 06:17 - Patient Data Lab Results Last 24 hrs: Laboratory Results - last 24 hr 12/24/18 12/24/18 12/24/18 Range/Units 03:35 03:35 07:09 WBC 14.12 H (4.0-11.0) K/uL RBC 4.61 (4.30-5.90) M/uL Hgb 10.4 L (12.0-16.0) g/dL Hct 35.0 L (36.0-46.0) % MCV 75.9 L (80.0-98.0) fL MCH 22.6 L (27.0-32.0) pg MCHC 29.7 L (31.0-37.0) g/dL RDW Std Deviation 42.8 (28.0-62.0) fl RDW Coeff of Cynthia 16 H (11.0-15.0) % Plt Count 284 (150-400) K/uL MPV 12.00 (7.40-12.00) fL Neut % (Auto) 76.2 (48.0-80.0) % Lymph % (Auto) 16.4 (16.0-40.0) % Dickey % (Auto) 6.4 (0.0-15.0) % Eos % (Auto) 0.6 (0.0-7.0) % Baso % (Auto) 0.4 (0.0-1.5) % Neut # (Auto) 10.8 H (1.4-5.7) K/uL Lymph # (Auto) 2.3 (0.6-2.4) K/uL Dickey # (Auto) 0.9 H (0.0-0.8) K/uL Eos # (Auto) 0.1 (0.0-0.7) K/uL Baso # (Auto) 0.1 (0.0-0.1) K/uL Nucleated RBC % 0.0 /100WBC Nucleated RBCs # 0 K/uL Lactate 2.8 H (0.20-2.00) mmol/L Sodium 142 (136-145) mmol/L Potassium 4.8 (3.5-5.1) mmol/L Chloride 106 (98-107) mmol/L Carbon Dioxide 21.7 (21.0-32.0) mmol/L BUN 19 H (7.0-18.0) mg/dL Creatinine 1.1 H (0.6-1.0) mg/dL Est Cr Clr Drug Dosing 51.43 mL/min Estimated GFR (MDRD) 49.8 ml/min Glucose 154 H (74-106) mg/dL Calcium 9.2 (8.5-10.1) mg/dL Total Bilirubin 0.2 (0.2-1.0) mg/dL AST 29 (15-37) IU/L ALT 29 (14-63) IU/L Alkaline Phosphatase 161 H (46-116) U/L Total Protein 8.2 (6.4-8.2) g/dL Albumin 4.3 (3.4-5.0) g/dL Globulin 3.9 (2.6-4.0) g/dL Albumin/Globulin Ratio 1.1 (0.9-1.6) Triglycerides (0-200) mg/dL Cholesterol (50-200) mg/dL LDL Cholesterol, Calc (60-180) mg/dL VLDL Cholesterol (5-55) mg/dL HDL Cholesterol (40-60) mg/dL Cholesterol/HDL Ratio (3.3-6.0) Amylase 89 (25-115) U/L Lipase 2296 H (73-393) U/L Urine Color Urine Appearance Urine pH (5.0-8.0) Ur Specific Independence (1.001-1.035) Urine Protein (NEGATIVE) mg/dL Urine Glucose (UA) (NEGATIVE) mg/dL Urine Ketones (NEGATIVE) mg/dL Urine Occult Blood (NEGATIVE) Urine Nitrite (NEGATIVE) Urine Bilirubin (NEGATIVE) Urine Urobilinogen (<2.0) EU/dL Ur Leukocyte Esterase (NEGATIVE) Ethyl Alcohol mg/dL 12/24/18 12/24/18 12/24/18 Range/Units 07:09 07:09 08:40 WBC (4.0-11.0) K/uL RBC (4.30-5.90) M/uL Hgb (12.0-16.0) g/dL Hct (36.0-46.0) % MCV (80.0-98.0) fL MCH (27.0-32.0) pg MCHC (31.0-37.0) g/dL RDW Std Deviation (28.0-62.0) fl RDW Coeff of Cynthia (11.0-15.0) % Plt Count (150-400) K/uL MPV (7.40-12.00) fL Neut % (Auto) (48.0-80.0) % Lymph % (Auto) (16.0-40.0) % Dickey % (Auto) (0.0-15.0) % Eos % (Auto) (0.0-7.0) % Baso % (Auto) (0.0-1.5) % Neut # (Auto) (1.4-5.7) K/uL Lymph # (Auto) (0.6-2.4) K/uL Dickey # (Auto) (0.0-0.8) K/uL Eos # (Auto) (0.0-0.7) K/uL Baso # (Auto) (0.0-0.1) K/uL Nucleated RBC % /100WBC Nucleated RBCs # K/uL Lactate (0.20-2.00) mmol/L Sodium (136-145) mmol/L Potassium (3.5-5.1) mmol/L Chloride (98-107) mmol/L Carbon Dioxide (21.0-32.0) mmol/L BUN (7.0-18.0) mg/dL Creatinine (0.6-1.0) mg/dL Est Cr Clr Drug Dosing mL/min Estimated GFR (MDRD) ml/min Glucose (74-106) mg/dL Calcium (8.5-10.1) mg/dL Total Bilirubin (0.2-1.0) mg/dL AST (15-37) IU/L ALT (14-63) IU/L Alkaline Phosphatase (46-116) U/L Total Protein (6.4-8.2) g/dL Albumin (3.4-5.0) g/dL Globulin (2.6-4.0) g/dL Albumin/Globulin Ratio (0.9-1.6) Triglycerides 197 (0-200) mg/dL Cholesterol 241 H (50-200) mg/dL LDL Cholesterol, Calc 165 (60-180) mg/dL VLDL Cholesterol 39 (5-55) mg/dL HDL Cholesterol 37 L (40-60) mg/dL Cholesterol/HDL Ratio 6.5 H (3.3-6.0) Amylase (25-115) U/L Lipase (73-393) U/L Urine Color YELLOW Urine Appearance CLEAR Urine pH 5.5 (5.0-8.0) Ur Specific Independence 1.025 (1.001-1.035) Urine Protein NEGATIVE (NEGATIVE) mg/dL Urine Glucose (UA) NEGATIVE (NEGATIVE) mg/dL Urine Ketones NEGATIVE (NEGATIVE) mg/dL Urine Occult Blood NEGATIVE (NEGATIVE) Urine Nitrite NEGATIVE (NEGATIVE) Urine Bilirubin NEGATIVE (NEGATIVE) Urine Urobilinogen 0.2 (<2.0) EU/dL Ur Leukocyte Esterase NEGATIVE (NEGATIVE) Ethyl Alcohol <3 mg/dL Result Diagrams: 12/24/18 03:35 12/24/18 03:35 Consult PN Assessment/Plan Procedures: Procedures ASSAY OF FOLIC ACID SERUM (11/07/17) ASSAY OF TROPONIN QUANT (11/07/17) ASSAY THYROID STIM HORMONE (11/07/17) COMPLETE CBC AUTOMATED (11/07/17) COMPLETE CBC W/AUTO DIFF WBC (11/07/17) COMPREHEN METABOLIC PANEL (11/07/17) CT ABD & PELV 1/> REGNS (07/28/16) CT HEAD/BRAIN W/O DYE (11/07/17) ELECTROCARDIOGRAM TRACING (11/07/17) EMERGENCY DEPT VISIT (11/07/17) GLYCOSYLATED HEMOGLOBIN TEST (11/07/17) HYDRATE IV INFUSION ADD-ON (11/07/17) HYDRATION IV INFUSION INIT (11/07/17) LIPID PANEL (11/07/17) MR ANGIOGRAPHY HEAD W/O DYE (11/07/17) MR ANGIOGRAPHY NECK W/O DYE (11/07/17) MRI BRAIN STEM W/O & W/DYE (09/15/16) MRI BRAIN STEM W/O DYE (11/07/17) MRI LUMBAR SPINE W/O & W/DYE (09/15/16) MRI LUMBAR SPINE W/O DYE (09/12/18) PROTHROMBIN TIME (11/07/17) PT EVAL LOW COMPLEX 20 MIN (11/07/17) ROUTINE VENIPUNCTURE (11/07/17) THER/PROPH/DIAG INJ SC/IM (11/07/17) THERAPEUTIC EXERCISES (11/24/16) THROMBOPLASTIN TIME PARTIAL (11/07/17) TTE W/DOPPLER COMPLETE (11/07/17) US EXAM ABDOM COMPLETE (10/05/15) VITAMIN B-12 (11/07/17) X-RAY UPPER GI&SMALL INTEST (01/12/16) (1) Small bowel obstruction SNOMED Code(s): 766295003 Code(s): K56.69 - OTHER INTESTINAL OBSTRUCTION * DO NOT USE * Current Visit : Yes Problem List Initiated/Reviewed/Updated: Yes My Orders Last 24 Hours: My Active Orders 12/24/18 08:30 Abdomen 2V AP Flat Upright [CR] DAILY 12/24/18 08:42 Nasogastric Tube Management [Gastrointestinal Tube Mgmt] [RC] ASDIRECTED 12/25/18 08:30 Abdomen 2V AP Flat Upright [CR] DAILY 12/26/18 08:30 Abdomen 2V AP Flat Upright [CR] DAILY Plan: Patient seen and examined with Dr. Larkin. I agree with her assessment and plan. We'll plan for conservative therapy to begin with. This will include IV fluid resuscitation and NG tube decompression. Would like to try and avoid laparotomy if at all possible.
[2018-12-24] MEDS: Pantoprazole 40 MG in Sodium Chloride 0.9% 10 ML IV SCH (09:04)
[2018-12-24] MEDS: Enoxaparin 40 MG/0.4 ML Syringe SUBCUT SCH (09:04)
--- NOTE | 2018-12-24 10:00 | CR ---
INDICATION: Small-bowel obstruction COMPARISON: Portable AP erect lower thorax and upper abdomen performed at 6 a.m. TECHNIQUE: Two view abdomen. FINDINGS: The nasogastric tube has been advanced into the gastric body. There are short air-fluid levels within the small bowel loops. The colon appears normal. There is no evidence of free intraperitoneal air. Calcified granulomas are noted within the lower lung zones and there are calcified granulomas within the spleen. IMPRESSION: Proper NG tube position. Persistent air-fluid levels within mildly dilated small bowel loops suggesting partial obstruction. Dictated by Attila Portlilo MD @ Dec 24 2018 9:56AM Signed by Dr. Attila Portillo @ Dec 24 2018 9:58AM
[2018-12-24 10:43] LABS: HEMOGLOBIN A1C 6.9 % (4.5-6.2)
[2018-12-24] MEDS: Lactated Ringers 1,000 ML IV SCH ×2 (13:19→20:04)
--- NOTE | 2018-12-24 17:21 | PCM.SN ---
- Free Text/Narrative Note: Patient is feeling much better tonight. States she is passing gas and had a small bowel movement. PE: Abdomen is soft and nontender. Bowel sounds are hypoactive. ASSESSMENT: Patient is much improved. Will leave NG tonight and allow ice chips and throat lozenges. Abd. films ordered for morning.
[2018-12-24] MEDS: Benzocaine/Cetylpyridinium/Menthol Lozenge MUCMEM PRN (18:16)
[2018-12-24] MEDS: Morphine 2 MG/ML Syringe IVPUSH PRN (19:36)
[2018-12-24] MEDS ORDERED: 50% Dextrose in Water 50 ML Syringe IVPUSH PRN (19:48)
[2018-12-25] MEDS: Lactated Ringers 1,000 ML IV SCH ×4 (03:07→22:52)
[2018-12-25] MEDS: Morphine 2 MG/ML Syringe IVPUSH PRN (05:40)
[2018-12-25 06:37] LABS: BLOOD UREA NITROGEN,BUN 13 mg/dL (7.0-18.0); CARBON DIOXIDE,CO2 27.5 mmol/L (21.0-32.0); CHLORIDE,CL 105 mmol/L (98-107); GLUCOSE RANDOM 119 mg/dL (74-106); LIPASE 104 U/L (73-393); POTASSIUM,K 4.2 mmol/L (3.5-5.1); SODIUM,NA 142 mmol/L (136-145)
[2018-12-25] MEDS: Benzocaine/Cetylpyridinium/Menthol Lozenge MUCMEM PRN ×2 (07:58→14:58)
[2018-12-25] MEDS: Enoxaparin 40 MG/0.4 ML Syringe SUBCUT SCH (07:58)
[2018-12-25] MEDS: Pantoprazole 40 MG in Sodium Chloride 0.9% 10 ML IV SCH (07:59)
--- NOTE | 2018-12-25 08:14 | PCM.PN ---
<Wilfrid Larkin - Last Filed: 12/25/18 08:08> - General Info Date of Service: 12/25/18 Admission Dx/Problem (Free Text): Admission Diagnosis/Problem Admission Diagnosis/Problem Intestinal obstruction Subjective Update: Continued to pass gas overnight. No further bowel movements. Denies feeling nauseated this am. Feels as though her abdomen is almost back to normal. Endorses bladder irritation this am. Functional Status: Reports: Ambulating, Urinating - Review of Systems General: Reports: No Symptoms HEENT: Reports: No Symptoms Pulmonary: Reports: No Symptoms Cardiovascular: Reports: No Symptoms Gastrointestinal: Reports: Flatus. Denies: Abdominal Pain Genitourinary: Reports: Dysuria, Frequency Skin: Reports: No Symptoms Neurological: Reports: No Symptoms - Patient Data Vitals - Most Recent: Last Vital Signs Temp 98.1 F 12/25/18 07:51 Pulse 68 12/25/18 07:51 Resp 18 12/25/18 07:51 BP 143/85 H 12/25/18 07:51 Pulse Ox 92 L 12/25/18 07:51 Weight - Most Recent: 190 lb I&O - Last 24 Hours: Intake & Output 12/24/18 12/25/18 12/25/18 22:59 06:59 14:59 Intake Total 0 1929 Output Total 550 1250 Balance -550 679 Lab Results Last 24 Hours: Laboratory Results - last 24 hr 12/24/18 12/24/18 12/24/18 Range/Units 07:09 07:13 08:40 WBC (4.0-11.0) K/uL RBC (4.30-5.90) M/uL Hgb (12.0-16.0) g/dL Hct (36.0-46.0) % MCV (80.0-98.0) fL MCH (27.0-32.0) pg MCHC (31.0-37.0) g/dL RDW Std Deviation (28.0-62.0) fl RDW Coeff of Cynthia (11.0-15.0) % Plt Count (150-400) K/uL MPV (7.40-12.00) fL Neut % (Auto) (48.0-80.0) % Lymph % (Auto) (16.0-40.0) % Hart % (Auto) (0.0-15.0) % Eos % (Auto) (0.0-7.0) % Baso % (Auto) (0.0-1.5) % Neut # (Auto) (1.4-5.7) K/uL Lymph # (Auto) (0.6-2.4) K/uL Hart # (Auto) (0.0-0.8) K/uL Eos # (Auto) (0.0-0.7) K/uL Baso # (Auto) (0.0-0.1) K/uL Nucleated RBC % /100WBC Nucleated RBCs # K/uL Lactate (0.20-2.00) mmol/L Sodium (136-145) mmol/L Potassium (3.5-5.1) mmol/L Chloride (98-107) mmol/L Carbon Dioxide (21.0-32.0) mmol/L BUN (7.0-18.0) mg/dL Creatinine (0.6-1.0) mg/dL Est Cr Clr Drug Dosing mL/min Estimated GFR (MDRD) ml/min Glucose (74-106) mg/dL POC Glucose (60-110) mg/dL Hemoglobin A1c 6.9 H (4.5-6.2) % Calcium (8.5-10.1) mg/dL Total Bilirubin (0.2-1.0) mg/dL AST (15-37) IU/L ALT (14-63) IU/L Alkaline Phosphatase (46-116) U/L Total Protein (6.4-8.2) g/dL Albumin (3.4-5.0) g/dL Globulin (2.6-4.0) g/dL Albumin/Globulin Ratio (0.9-1.6) Triglycerides 197 (0-200) mg/dL Cholesterol 241 H (50-200) mg/dL LDL Cholesterol, Calc 165 (60-180) mg/dL VLDL Cholesterol 39 (5-55) mg/dL HDL Cholesterol 37 L (40-60) mg/dL Cholesterol/HDL Ratio 6.5 H (3.3-6.0) Lipase (73-393) U/L Urine Color YELLOW Urine Appearance CLEAR Urine pH 5.5 (5.0-8.0) Ur Specific [place] 1.025 (1.001-1.035) Urine Protein NEGATIVE (NEGATIVE) mg/dL Urine Glucose (UA) NEGATIVE (NEGATIVE) mg/dL Urine Ketones NEGATIVE (NEGATIVE) mg/dL Urine Occult Blood NEGATIVE (NEGATIVE) Urine Nitrite NEGATIVE (NEGATIVE) Urine Bilirubin NEGATIVE (NEGATIVE) Urine Urobilinogen 0.2 (<2.0) EU/dL Ur Leukocyte Esterase NEGATIVE (NEGATIVE) 12/24/18 12/24/18 12/24/18 Range/Units 11:35 16:32 17:35 WBC (4.0-11.0) K/uL RBC (4.30-5.90) M/uL Hgb (12.0-16.0) g/dL Hct (36.0-46.0) % MCV (80.0-98.0) fL MCH (27.0-32.0) pg MCHC (31.0-37.0) g/dL RDW Std Deviation (28.0-62.0) fl RDW Coeff of Cynthia (11.0-15.0) % Plt Count (150-400) K/uL MPV (7.40-12.00) fL Neut % (Auto) (48.0-80.0) % Lymph % (Auto) (16.0-40.0) % Hart % (Auto) (0.0-15.0) % Eos % (Auto) (0.0-7.0) % Baso % (Auto) (0.0-1.5) % Neut # (Auto) (1.4-5.7) K/uL Lymph # (Auto) (0.6-2.4) K/uL Hart # (Auto) (0.0-0.8) K/uL Eos # (Auto) (0.0-0.7) K/uL Baso # (Auto) (0.0-0.1) K/uL Nucleated RBC % /100WBC Nucleated RBCs # K/uL Lactate 2.1 H 1.5 (0.20-2.00) mmol/L Sodium (136-145) mmol/L Potassium (3.5-5.1) mmol/L Chloride (98-107) mmol/L Carbon Dioxide (21.0-32.0) mmol/L BUN (7.0-18.0) mg/dL Creatinine (0.6-1.0) mg/dL Est Cr Clr Drug Dosing mL/min Estimated GFR (MDRD) ml/min Glucose (74-106) mg/dL POC Glucose 78 (60-110) mg/dL Hemoglobin A1c (4.5-6.2) % Calcium (8.5-10.1) mg/dL Total Bilirubin (0.2-1.0) mg/dL AST (15-37) IU/L ALT (14-63) IU/L Alkaline Phosphatase (46-116) U/L Total Protein (6.4-8.2) g/dL Albumin (3.4-5.0) g/dL Globulin (2.6-4.0) g/dL Albumin/Globulin Ratio (0.9-1.6) Triglycerides (0-200) mg/dL Cholesterol (50-200) mg/dL LDL Cholesterol, Calc (60-180) mg/dL VLDL Cholesterol (5-55) mg/dL HDL Cholesterol (40-60) mg/dL Cholesterol/HDL Ratio (3.3-6.0) Lipase (73-393) U/L Urine Color Urine Appearance Urine pH (5.0-8.0) Ur Specific [place] (1.001-1.035) Urine Protein (NEGATIVE) mg/dL Urine Glucose (UA) (NEGATIVE) mg/dL Urine Ketones (NEGATIVE) mg/dL Urine Occult Blood (NEGATIVE) Urine Nitrite (NEGATIVE) Urine Bilirubin (NEGATIVE) Urine Urobilinogen (<2.0) EU/dL Ur Leukocyte Esterase (NEGATIVE) 12/24/18 12/25/18 12/25/18 Range/Units 21:49 05:32 05:51 WBC 8.41 (4.0-11.0) K/uL RBC 3.83 L (4.30-5.90) M/uL Hgb 8.5 L (12.0-16.0) g/dL Hct 29.3 L (36.0-46.0) % MCV 76.5 L (80.0-98.0) fL MCH 22.2 L (27.0-32.0) pg MCHC 29.0 L (31.0-37.0) g/dL RDW Std Deviation 43.8 (28.0-62.0) fl RDW Coeff of Cynthia 16 H (11.0-15.0) % Plt Count 232 (150-400) K/uL MPV 12.40 H (7.40-12.00) fL Neut % (Auto) 66.0 (48.0-80.0) % Lymph % (Auto) 25.9 (16.0-40.0) % Hart % (Auto) 7.4 (0.0-15.0) % Eos % (Auto) 0.5 (0.0-7.0) % Baso % (Auto) 0.2 (0.0-1.5) % Neut # (Auto) 5.6 (1.4-5.7) K/uL Lymph # (Auto) 2.2 (0.6-2.4) K/uL Hart # (Auto) 0.6 (0.0-0.8) K/uL Eos # (Auto) 0.0 (0.0-0.7) K/uL Baso # (Auto) 0.0 (0.0-0.1) K/uL Nucleated RBC % 0.0 /100WBC Nucleated RBCs # 0 K/uL Lactate (0.20-2.00) mmol/L Sodium (136-145) mmol/L Potassium (3.5-5.1) mmol/L Chloride (98-107) mmol/L Carbon Dioxide (21.0-32.0) mmol/L BUN (7.0-18.0) mg/dL Creatinine (0.6-1.0) mg/dL Est Cr Clr Drug Dosing mL/min Estimated GFR (MDRD) ml/min Glucose (74-106) mg/dL POC Glucose 91 109 (60-110) mg/dL Hemoglobin A1c (4.5-6.2) % Calcium (8.5-10.1) mg/dL Total Bilirubin (0.2-1.0) mg/dL AST (15-37) IU/L ALT (14-63) IU/L Alkaline Phosphatase (46-116) U/L Total Protein (6.4-8.2) g/dL Albumin (3.4-5.0) g/dL Globulin (2.6-4.0) g/dL Albumin/Globulin Ratio (0.9-1.6) Triglycerides (0-200) mg/dL Cholesterol (50-200) mg/dL LDL Cholesterol, Calc (60-180) mg/dL VLDL Cholesterol (5-55) mg/dL HDL Cholesterol (40-60) mg/dL Cholesterol/HDL Ratio (3.3-6.0) Lipase (73-393) U/L Urine Color Urine Appearance Urine pH (5.0-8.0) Ur Specific [place] (1.001-1.035) Urine Protein (NEGATIVE) mg/dL Urine Glucose (UA) (NEGATIVE) mg/dL Urine Ketones (NEGATIVE) mg/dL Urine Occult Blood (NEGATIVE) Urine Nitrite (NEGATIVE) Urine Bilirubin (NEGATIVE) Urine Urobilinogen (<2.0) EU/dL Ur Leukocyte Esterase (NEGATIVE) 12/25/18 Range/Units 05:51 WBC (4.0-11.0) K/uL RBC (4.30-5.90) M/uL Hgb (12.0-16.0) g/dL Hct (36.0-46.0) % MCV (80.0-98.0) fL MCH (27.0-32.0) pg MCHC (31.0-37.0) g/dL RDW Std Deviation (28.0-62.0) fl RDW Coeff of Cynthia (11.0-15.0) % Plt Count (150-400) K/uL MPV (7.40-12.00) fL Neut % (Auto) (48.0-80.0) % Lymph % (Auto) (16.0-40.0) % Hart % (Auto) (0.0-15.0) % Eos % (Auto) (0.0-7.0) % Baso % (Auto) (0.0-1.5) % Neut # (Auto) (1.4-5.7) K/uL Lymph # (Auto) (0.6-2.4) K/uL Hart # (Auto) (0.0-0.8) K/uL Eos # (Auto) (0.0-0.7) K/uL Baso # (Auto) (0.0-0.1) K/uL Nucleated RBC % /100WBC Nucleated RBCs # K/uL Lactate (0.20-2.00) mmol/L Sodium 142 (136-145) mmol/L Potassium 4.2 (3.5-5.1) mmol/L Chloride 105 (98-107) mmol/L Carbon Dioxide 27.5 (21.0-32.0) mmol/L BUN 13 (7.0-18.0) mg/dL Creatinine 0.9 (0.6-1.0) mg/dL Est Cr Clr Drug Dosing 62.86 mL/min Estimated GFR (MDRD) > 60.0 ml/min Glucose 119 H (74-106) mg/dL POC Glucose (60-110) mg/dL Hemoglobin A1c (4.5-6.2) % Calcium 8.1 L (8.5-10.1) mg/dL Total Bilirubin 0.5 (0.2-1.0) mg/dL AST 26 (15-37) IU/L ALT 39 (14-63) IU/L Alkaline Phosphatase 146 H (46-116) U/L Total Protein 6.1 L (6.4-8.2) g/dL Albumin 3.2 L (3.4-5.0) g/dL Globulin 2.9 (2.6-4.0) g/dL Albumin/Globulin Ratio 1.1 (0.9-1.6) Triglycerides (0-200) mg/dL Cholesterol (50-200) mg/dL LDL Cholesterol, Calc (60-180) mg/dL VLDL Cholesterol (5-55) mg/dL HDL Cholesterol (40-60) mg/dL Cholesterol/HDL Ratio (3.3-6.0) Lipase 104 (73-393) U/L Urine Color Urine Appearance Urine pH (5.0-8.0) Ur Specific [place] (1.001-1.035) Urine Protein (NEGATIVE) mg/dL Urine Glucose (UA) (NEGATIVE) mg/dL Urine Ketones (NEGATIVE) mg/dL Urine Occult Blood (NEGATIVE) Urine Nitrite (NEGATIVE) Urine Bilirubin (NEGATIVE) Urine Urobilinogen (<2.0) EU/dL Ur Leukocyte Esterase (NEGATIVE) Med Orders - Current: Current Medications Benzocaine/Menthol (Cepacol Sore Throat) 1 lozenge MUCMEM ASDIRECTED PRN PRN Reason: Sore Throat Last Admin: 12/25/18 07:58 Dose: 1 lozenge Dextrose/Water (Dextrose 50% In Water) 50 ml IVPUSH DAILY PRN PRN Reason: Hypoglycemia Enoxaparin Sodium (Lovenox) 40 mg SUBCUT Q24H [facility] Last Admin: 12/25/18 07:58 Dose: 40 mg Pantoprazole Sodium 40 mg/ (Sodium Chloride) 10 mls @ 300 mls/hr IV DAILY [facility] Last Admin: 12/25/18 07:59 Dose: 300 mls/hr Lactated Ringer's (Ringers, Lactated) 1,000 mls @ 150 mls/hr IV ASDIRECTED [facility] Last Admin: 12/25/18 03:07 Dose: 150 mls/hr Ketorolac Tromethamine (Toradol) 15 mg IVPUSH Q6H PRN PRN Reason: Pain (moderate 4-6) Morphine Sulfate (Morphine) 2 mg IVPUSH Q2H PRN PRN Reason: Pain (severe 7-10) Stop: 12/25/18 08:29 Last Admin: 12/25/18 05:40 Dose: 2 mg Ondansetron HCl (Zofran) 4 mg IVPUSH Q4H PRN PRN Reason: Nausea Sodium Chloride (Saline Flush) 10 ml FLUSH ASDIRECTED PRN PRN Reason: Keep Vein Open Last Admin: 12/24/18 03:39 Dose: 10 ml Sodium Chloride (Saline Flush) 2.5 ml FLUSH ASDIRECTED PRN PRN Reason: Keep Vein Open Discontinued Medications Diphenhydramine HCl (Benadryl) 25 mg IVPUSH ONETIME ONE Stop: 12/24/18 04:28 Last Admin: 12/24/18 04:35 Dose: 25 mg Hydromorphone HCl (Dilaudid) 1 mg IVPUSH ONETIME ONE Stop: 12/24/18 04:41 Last Admin: 12/24/18 04:47 Dose: 1 mg Sodium Chloride (Normal Saline) 1,000 mls @ 999 mls/hr IV STAT ONE Stop: 12/24/18 04:23 Last Admin: 12/24/18 03:39 Dose: 999 mls/hr Sodium Chloride (Normal Saline) Confirm Administered Dose 20 mls @ as directed .ROUTE .STK-MED ONE Stop: 12/24/18 03:36 Last Admin: 12/24/18 03:40 Dose: 20 mls/hr Sodium Chloride (Normal Saline) 1,000 mls @ 150 mls/hr IV ASDIRECTED [facility] Last Infusion: 12/24/18 05:06 Dose: 150 mls/hr Lactated Ringer's (Ringers, Lactated) 1,000 mls @ 150 mls/hr IV ASDIRECTED [facility] Last Admin: 12/24/18 05:58 Dose: 150 mls/hr Metoclopramide HCl (Reglan) 10 mg IV ONETIME ONE Stop: 12/24/18 04:28 Last Admin: 12/24/18 04:36 Dose: 10 mg Morphine Sulfate (Morphine) 4 mg IVPUSH ONETIME ONE Stop: 12/24/18 03:24 Last Admin: 12/24/18 03:39 Dose: 4 mg Ondansetron HCl (Zofran) 4 mg IVPUSH ONETIME ONE Stop: 12/24/18 03:24 Last Admin: 12/24/18 03:39 Dose: 4 mg Ondansetron HCl (Zofran) 4 mg IVPUSH ONETIME ONE Stop: 12/24/18 04:04 Last Admin: 12/24/18 04:06 Dose: 4 mg Ondansetron HCl (Zofran) Confirm Administered Dose 4 mg .ROUTE .STK-MED ONE Stop: 12/24/18 04:05 Last Admin: 12/24/18 04:07 Dose: Not Given Pantoprazole Sodium (Protonix Iv) 80 mg IVPUSH .BOLUS ONE Stop: 12/24/18 03:24 Last Admin: 12/24/18 03:39 Dose: 80 mg - Exam General: Alert, Oriented Lungs: Clear to Auscultation, Normal Respiratory Effort Cardiovascular: Regular Rate, Regular Rhythm GI/Abdominal Exam: Normal Bowel Sounds, Soft, Non-Tender, No Distention Extremities: No Pedal Edema Skin: Warm, Dry, Intact - Problem List & Annotations (1) Small bowel obstruction SNOMED Code(s): 250467133 Code(s): K56.69 - OTHER INTESTINAL OBSTRUCTION * DO NOT USE * Status: Acute Current Visit: Yes - Problem List Review Problem List Initiated/Reviewed/Updated: Yes - Assessment Assessment:: 63 yr old female that was admitted to medicine team for a small bowel obstruction. She started to pass flatus and have some minimal bowel function yesterday afternoon. She continues to pass flatus overnight. - Plan Plan:: -recommend removing NG tube today -OK for full liquid diet after NG removed -Will follow up abdominal Xray <Deng Castillo - Last Filed: 12/25/18 08:23> - Patient Data Vitals - Most Recent: Last Vital Signs Temp 98.1 F 12/25/18 07:51 Pulse 68 12/25/18 07:51 Resp 18 12/25/18 07:51 BP 143/85 H 12/25/18 07:51 Pulse Ox 92 L 12/25/18 08:10 I&O - Last 24 Hours: Intake & Output 12/24/18 12/25/18 12/25/18 19:59 03:59 11:59 Intake Total 833 1929 Output Total 550 1250 Balance 283 679 Lab Results Last 24 Hours: Laboratory Results - last 24 hr 12/24/18 12/24/18 12/24/18 Range/Units 07:09 07:13 08:40 WBC (4.0-11.0) K/uL RBC (4.30-5.90) M/uL Hgb (12.0-16.0) g/dL Hct (36.0-46.0) % MCV (80.0-98.0) fL MCH (27.0-32.0) pg MCHC (31.0-37.0) g/dL RDW Std Deviation (28.0-62.0) fl RDW Coeff of Cynthia (11.0-15.0) % Plt Count (150-400) K/uL MPV (7.40-12.00) fL Neut % (Auto) (48.0-80.0) % Lymph % (Auto) (16.0-40.0) % Hart % (Auto) (0.0-15.0) % Eos % (Auto) (0.0-7.0) % Baso % (Auto) (0.0-1.5) % Neut # (Auto) (1.4-5.7) K/uL Lymph # (Auto) (0.6-2.4) K/uL Hart # (Auto) (0.0-0.8) K/uL Eos # (Auto) (0.0-0.7) K/uL Baso # (Auto) (0.0-0.1) K/uL Nucleated RBC % /100WBC Nucleated RBCs # K/uL Lactate (0.20-2.00) mmol/L Sodium (136-145) mmol/L Potassium (3.5-5.1) mmol/L Chloride (98-107) mmol/L Carbon Dioxide (21.0-32.0) mmol/L BUN (7.0-18.0) mg/dL Creatinine (0.6-1.0) mg/dL Est Cr Clr Drug Dosing mL/min Estimated GFR (MDRD) ml/min Glucose (74-106) mg/dL POC Glucose (60-110) mg/dL Hemoglobin A1c 6.9 H (4.5-6.2) % Calcium (8.5-10.1) mg/dL Total Bilirubin (0.2-1.0) mg/dL AST (15-37) IU/L ALT (14-63) IU/L Alkaline Phosphatase (46-116) U/L Total Protein (6.4-8.2) g/dL Albumin (3.4-5.0) g/dL Globulin (2.6-4.0) g/dL Albumin/Globulin Ratio (0.9-1.6) Triglycerides 197 (0-200) mg/dL Cholesterol 241 H (50-200) mg/dL LDL Cholesterol, Calc 165 (60-180) mg/dL VLDL Cholesterol 39 (5-55) mg/dL HDL Cholesterol 37 L (40-60) mg/dL Cholesterol/HDL Ratio 6.5 H (3.3-6.0) Lipase (73-393) U/L Urine Color YELLOW Urine Appearance CLEAR Urine pH 5.5 (5.0-8.0) Ur Specific [place] 1.025 (1.001-1.035) Urine Protein NEGATIVE (NEGATIVE) mg/dL Urine Glucose (UA) NEGATIVE (NEGATIVE) mg/dL Urine Ketones NEGATIVE (NEGATIVE) mg/dL Urine Occult Blood NEGATIVE (NEGATIVE) Urine Nitrite NEGATIVE (NEGATIVE) Urine Bilirubin NEGATIVE (NEGATIVE) Urine Urobilinogen 0.2 (<2.0) EU/dL Ur Leukocyte Esterase NEGATIVE (NEGATIVE) 12/24/18 12/24/18 12/24/18 Range/Units 11:35 16:32 17:35 WBC (4.0-11.0) K/uL RBC (4.30-5.90) M/uL Hgb (12.0-16.0) g/dL Hct (36.0-46.0) % MCV (80.0-98.0) fL MCH (27.0-32.0) pg MCHC (31.0-37.0) g/dL RDW Std Deviation (28.0-62.0) fl RDW Coeff of Cynthia (11.0-15.0) % Plt Count (150-400) K/uL MPV (7.40-12.00) fL Neut % (Auto) (48.0-80.0) % Lymph % (Auto) (16.0-40.0) % Hart % (Auto) (0.0-15.0) % Eos % (Auto) (0.0-7.0) % Baso % (Auto) (0.0-1.5) % Neut # (Auto) (1.4-5.7) K/uL Lymph # (Auto) (0.6-2.4) K/uL Hart # (Auto) (0.0-0.8) K/uL Eos # (Auto) (0.0-0.7) K/uL Baso # (Auto) (0.0-0.1) K/uL Nucleated RBC % /100WBC Nucleated RBCs # K/uL Lactate 2.1 H 1.5 (0.20-2.00) mmol/L Sodium (136-145) mmol/L Potassium (3.5-5.1) mmol/L Chloride (98-107) mmol/L Carbon Dioxide (21.0-32.0) mmol/L BUN (7.0-18.0) mg/dL Creatinine (0.6-1.0) mg/dL Est Cr Clr Drug Dosing mL/min Estimated GFR (MDRD) ml/min Glucose (74-106) mg/dL POC Glucose 78 (60-110) mg/dL Hemoglobin A1c (4.5-6.2) % Calcium (8.5-10.1) mg/dL Total Bilirubin (0.2-1.0) mg/dL AST (15-37) IU/L ALT (14-63) IU/L Alkaline Phosphatase (46-116) U/L Total Protein (6.4-8.2) g/dL Albumin (3.4-5.0) g/dL Globulin (2.6-4.0) g/dL Albumin/Globulin Ratio (0.9-1.6) Triglycerides (0-200) mg/dL Cholesterol (50-200) mg/dL LDL Cholesterol, Calc (60-180) mg/dL VLDL Cholesterol (5-55) mg/dL HDL Cholesterol (40-60) mg/dL Cholesterol/HDL Ratio (3.3-6.0) Lipase (73-393) U/L Urine Color Urine Appearance Urine pH (5.0-8.0) Ur Specific [place] (1.001-1.035) Urine Protein (NEGATIVE) mg/dL Urine Glucose (UA) (NEGATIVE) mg/dL Urine Ketones (NEGATIVE) mg/dL Urine Occult Blood (NEGATIVE) Urine Nitrite (NEGATIVE) Urine Bilirubin (NEGATIVE) Urine Urobilinogen (<2.0) EU/dL Ur Leukocyte Esterase (NEGATIVE) 12/24/18 12/25/18 12/25/18 Range/Units 21:49 05:32 05:51 WBC 8.41 (4.0-11.0) K/uL RBC 3.83 L (4.30-5.90) M/uL Hgb 8.5 L (12.0-16.0) g/dL Hct 29.3 L (36.0-46.0) % MCV 76.5 L (80.0-98.0) fL MCH 22.2 L (27.0-32.0) pg MCHC 29.0 L (31.0-37.0) g/dL RDW Std Deviation 43.8 (28.0-62.0) fl RDW Coeff of Cynthia 16 H (11.0-15.0) % Plt Count 232 (150-400) K/uL MPV 12.40 H (7.40-12.00) fL Neut % (Auto) 66.0 (48.0-80.0) % Lymph % (Auto) 25.9 (16.0-40.0) % Hart % (Auto) 7.4 (0.0-15.0) % Eos % (Auto) 0.5 (0.0-7.0) % Baso % (Auto) 0.2 (0.0-1.5) % Neut # (Auto) 5.6 (1.4-5.7) K/uL Lymph # (Auto) 2.2 (0.6-2.4) K/uL Hart # (Auto) 0.6 (0.0-0.8) K/uL Eos # (Auto) 0.0 (0.0-0.7) K/uL Baso # (Auto) 0.0 (0.0-0.1) K/uL Nucleated RBC % 0.0 /100WBC Nucleated RBCs # 0 K/uL Lactate (0.20-2.00) mmol/L Sodium (136-145) mmol/L Potassium (3.5-5.1) mmol/L Chloride (98-107) mmol/L Carbon Dioxide (21.0-32.0) mmol/L BUN (7.0-18.0) mg/dL Creatinine (0.6-1.0) mg/dL Est Cr Clr Drug Dosing mL/min Estimated GFR (MDRD) ml/min Glucose (74-106) mg/dL POC Glucose 91 109 (60-110) mg/dL Hemoglobin A1c (4.5-6.2) % Calcium (8.5-10.1) mg/dL Total Bilirubin (0.2-1.0) mg/dL AST (15-37) IU/L ALT (14-63) IU/L Alkaline Phosphatase (46-116) U/L Total Protein (6.4-8.2) g/dL Albumin (3.4-5.0) g/dL Globulin (2.6-4.0) g/dL Albumin/Globulin Ratio (0.9-1.6) Triglycerides (0-200) mg/dL Cholesterol (50-200) mg/dL LDL Cholesterol, Calc (60-180) mg/dL VLDL Cholesterol (5-55) mg/dL HDL Cholesterol (40-60) mg/dL Cholesterol/HDL Ratio (3.3-6.0) Lipase (73-393) U/L Urine Color Urine Appearance Urine pH (5.0-8.0) Ur Specific [place] (1.001-1.035) Urine Protein (NEGATIVE) mg/dL Urine Glucose (UA) (NEGATIVE) mg/dL Urine Ketones (NEGATIVE) mg/dL Urine Occult Blood (NEGATIVE) Urine Nitrite (NEGATIVE) Urine Bilirubin (NEGATIVE) Urine Urobilinogen (<2.0) EU/dL Ur Leukocyte Esterase (NEGATIVE) 12/25/18 Range/Units 05:51 WBC (4.0-11.0) K/uL RBC (4.30-5.90) M/uL Hgb (12.0-16.0) g/dL Hct (36.0-46.0) % MCV (80.0-98.0) fL MCH (27.0-32.0) pg MCHC (31.0-37.0) g/dL RDW Std Deviation (28.0-62.0) fl RDW Coeff of Cynthia (11.0-15.0) % Plt Count (150-400) K/uL MPV (7.40-12.00) fL Neut % (Auto) (48.0-80.0) % Lymph % (Auto) (16.0-40.0) % Hart % (Auto) (0.0-15.0) % Eos % (Auto) (0.0-7.0) % Baso % (Auto) (0.0-1.5) % Neut # (Auto) (1.4-5.7) K/uL Lymph # (Auto) (0.6-2.4) K/uL Hart # (Auto) (0.0-0.8) K/uL Eos # (Auto) (0.0-0.7) K/uL Baso # (Auto) (0.0-0.1) K/uL Nucleated RBC % /100WBC Nucleated RBCs # K/uL Lactate (0.20-2.00) mmol/L Sodium 142 (136-145) mmol/L Potassium 4.2 (3.5-5.1) mmol/L Chloride 105 (98-107) mmol/L Carbon Dioxide 27.5 (21.0-32.0) mmol/L BUN 13 (7.0-18.0) mg/dL Creatinine 0.9 (0.6-1.0) mg/dL Est Cr Clr Drug Dosing 62.86 mL/min Estimated GFR (MDRD) > 60.0 ml/min Glucose 119 H (74-106) mg/dL POC Glucose (60-110) mg/dL Hemoglobin A1c (4.5-6.2) % Calcium 8.1 L (8.5-10.1) mg/dL Total Bilirubin 0.5 (0.2-1.0) mg/dL AST 26 (15-37) IU/L ALT 39 (14-63) IU/L Alkaline Phosphatase 146 H (46-116) U/L Total Protein 6.1 L (6.4-8.2) g/dL Albumin 3.2 L (3.4-5.0) g/dL Globulin 2.9 (2.6-4.0) g/dL Albumin/Globulin Ratio 1.1 (0.9-1.6) Triglycerides (0-200) mg/dL Cholesterol (50-200) mg/dL LDL Cholesterol, Calc (60-180) mg/dL VLDL Cholesterol (5-55) mg/dL HDL Cholesterol (40-60) mg/dL Cholesterol/HDL Ratio (3.3-6.0) Lipase 104 (73-393) U/L Urine Color Urine Appearance Urine pH (5.0-8.0) Ur Specific [place] (1.001-1.035) Urine Protein (NEGATIVE) mg/dL Urine Glucose (UA) (NEGATIVE) mg/dL Urine Ketones (NEGATIVE) mg/dL Urine Occult Blood (NEGATIVE) Urine Nitrite (NEGATIVE) Urine Bilirubin (NEGATIVE) Urine Urobilinogen (<2.0) EU/dL Ur Leukocyte Esterase (NEGATIVE) Med Orders - Current: Current Medications Benzocaine/Menthol (Cepacol Sore Throat) 1 lozenge MUCMEM ASDIRECTED PRN PRN Reason: Sore Throat Last Admin: 12/25/18 07:58 Dose: 1 lozenge Dextrose/Water (Dextrose 50% In Water) 50 ml IVPUSH DAILY PRN PRN Reason: Hypoglycemia Enoxaparin Sodium (Lovenox) 40 mg SUBCUT Q24H CLAIRE Last Admin: 12/25/18 07:58 Dose: 40 mg Pantoprazole Sodium 40 mg/ (Sodium Chloride) 10 mls @ 300 mls/hr IV DAILY CLAIRE Last Admin: 12/25/18 07:59 Dose: 300 mls/hr Lactated Ringer's (Ringers, Lactated) 1,000 mls @ 150 mls/hr IV ASDIRECTED CLAIRE Last Admin: 12/25/18 03:07 Dose: 150 mls/hr Ketorolac Tromethamine (Toradol) 15 mg IVPUSH Q6H PRN PRN Reason: Pain (moderate 4-6) Morphine Sulfate (Morphine) 2 mg IVPUSH Q2H PRN PRN Reason: Pain (severe 7-10) Stop: 12/25/18 08:29 Last Admin: 12/25/18 05:40 Dose: 2 mg Ondansetron HCl (Zofran) 4 mg IVPUSH Q4H PRN PRN Reason: Nausea Sodium Chloride (Saline Flush) 10 ml FLUSH ASDIRECTED PRN PRN Reason: Keep Vein Open Last Admin: 12/24/18 03:39 Dose: 10 ml Sodium Chloride (Saline Flush) 2.5 ml FLUSH ASDIRECTED PRN PRN Reason: Keep Vein Open Discontinued Medications Diphenhydramine HCl (Benadryl) 25 mg IVPUSH ONETIME ONE Stop: 12/24/18 04:28 Last Admin: 12/24/18 04:35 Dose: 25 mg Hydromorphone HCl (Dilaudid) 1 mg IVPUSH ONETIME ONE Stop: 12/24/18 04:41 Last Admin: 12/24/18 04:47 Dose: 1 mg Sodium Chloride (Normal Saline) 1,000 mls @ 999 mls/hr IV STAT ONE Stop: 12/24/18 04:23 Last Admin: 12/24/18 03:39 Dose: 999 mls/hr Sodium Chloride (Normal Saline) Confirm Administered Dose 20 mls @ as directed .ROUTE .STK-MED ONE Stop: 12/24/18 03:36 Last Admin: 12/24/18 03:40 Dose: 20 mls/hr Sodium Chloride (Normal Saline) 1,000 mls @ 150 mls/hr IV ASDIRECTED CLAIRE Last Infusion: 12/24/18 05:06 Dose: 150 mls/hr Lactated Ringer's (Ringers, Lactated) 1,000 mls @ 150 mls/hr IV ASDIRECTED CLAIRE Last Admin: 12/24/18 05:58 Dose: 150 mls/hr Metoclopramide HCl (Reglan) 10 mg IV ONETIME ONE Stop: 12/24/18 04:28 Last Admin: 12/24/18 04:36 Dose: 10 mg Morphine Sulfate (Morphine) 4 mg IVPUSH ONETIME ONE Stop: 12/24/18 03:24 Last Admin: 12/24/18 03:39 Dose: 4 mg Ondansetron HCl (Zofran) 4 mg IVPUSH ONETIME ONE Stop: 12/24/18 03:24 Last Admin: 12/24/18 03:39 Dose: 4 mg Ondansetron HCl (Zofran) 4 mg IVPUSH ONETIME ONE Stop: 12/24/18 04:04 Last Admin: 12/24/18 04:06 Dose: 4 mg Ondansetron HCl (Zofran) Confirm Administered Dose 4 mg .ROUTE .STK-MED ONE Stop: 12/24/18 04:05 Last Admin: 12/24/18 04:07 Dose: Not Given Pantoprazole Sodium (Protonix Iv) 80 mg IVPUSH .BOLUS ONE Stop: 12/24/18 03:24 Last Admin: 12/24/18 03:39 Dose: 80 mg - Problem List & Annotations (1) Small bowel obstruction SNOMED Code(s): 654111454 Code(s): K56.69 - OTHER INTESTINAL OBSTRUCTION * DO NOT USE * Status: Acute Current Visit: Yes - My Orders Last 24 Hours: My Active Orders 12/24/18 08:42 Nasogastric Tube Management [Gastrointestinal Tube Mgmt] [RC] ASDIRECTED 12/24/18 17:18 Benzocaine/Cetylpyrd/Menthol [Cepacol Sore Throat] 1 lozenge MUCMEM ASDIRECTED PRN 12/24/18 17:21 Communication Order [RC] PRN 12/25/18 08:30 Abdomen 2V AP Flat Upright [CR] DAILY 12/26/18 08:30 Abdomen 2V AP Flat Upright [CR] DAILY - Assessment Assessment:: Patient seen with Dr. Larkin today. Agree with her assessment and plan. Can start full liquids today.
--- NOTE | 2018-12-25 09:14 | PCM.PN ---
<Filippo Acuna - Last Filed: 12/25/18 11:12> - General Info Date of Service: 12/25/18 Subjective Update: No acute events overnight. Passing gas this morning. abdomen non tender. no nausea or vomiting. - Patient Data Vitals - Most Recent: Last Vital Signs Temp 36.7 C 12/25/18 07:51 Pulse 68 12/25/18 07:51 Resp 18 12/25/18 07:51 BP 143/85 H 12/25/18 07:51 Pulse Ox 92 L 12/25/18 08:10 Weight - Most Recent: 86.183 kg I&O - Last 24 Hours: Intake & Output 12/24/18 12/25/18 12/25/18 22:59 06:59 14:59 Intake Total 0 1929 Output Total 550 1250 Balance -550 679 Lab Results Last 24 Hours: Laboratory Results - last 24 hr 12/24/18 12/24/18 12/24/18 Range/Units 07:13 11:35 16:32 WBC (4.0-11.0) K/uL RBC (4.30-5.90) M/uL Hgb (12.0-16.0) g/dL Hct (36.0-46.0) % MCV (80.0-98.0) fL MCH (27.0-32.0) pg MCHC (31.0-37.0) g/dL RDW Std Deviation (28.0-62.0) fl RDW Coeff of Cynthia (11.0-15.0) % Plt Count (150-400) K/uL MPV (7.40-12.00) fL Neut % (Auto) (48.0-80.0) % Lymph % (Auto) (16.0-40.0) % [place] % (Auto) (0.0-15.0) % Eos % (Auto) (0.0-7.0) % Baso % (Auto) (0.0-1.5) % Neut # (Auto) (1.4-5.7) K/uL Lymph # (Auto) (0.6-2.4) K/uL [place] # (Auto) (0.0-0.8) K/uL Eos # (Auto) (0.0-0.7) K/uL Baso # (Auto) (0.0-0.1) K/uL Nucleated RBC % /100WBC Nucleated RBCs # K/uL Lactate 2.1 H (0.20-2.00) mmol/L Sodium (136-145) mmol/L Potassium (3.5-5.1) mmol/L Chloride (98-107) mmol/L Carbon Dioxide (21.0-32.0) mmol/L BUN (7.0-18.0) mg/dL Creatinine (0.6-1.0) mg/dL Est Cr Clr Drug Dosing mL/min Estimated GFR (MDRD) ml/min Glucose (74-106) mg/dL POC Glucose 78 (60-110) mg/dL Hemoglobin A1c 6.9 H (4.5-6.2) % Calcium (8.5-10.1) mg/dL Total Bilirubin (0.2-1.0) mg/dL AST (15-37) IU/L ALT (14-63) IU/L Alkaline Phosphatase (46-116) U/L Total Protein (6.4-8.2) g/dL Albumin (3.4-5.0) g/dL Globulin (2.6-4.0) g/dL Albumin/Globulin Ratio (0.9-1.6) Lipase (73-393) U/L 12/24/18 12/24/18 12/25/18 Range/Units 17:35 21:49 05:32 WBC (4.0-11.0) K/uL RBC (4.30-5.90) M/uL Hgb (12.0-16.0) g/dL Hct (36.0-46.0) % MCV (80.0-98.0) fL MCH (27.0-32.0) pg MCHC (31.0-37.0) g/dL RDW Std Deviation (28.0-62.0) fl RDW Coeff of Cynthia (11.0-15.0) % Plt Count (150-400) K/uL MPV (7.40-12.00) fL Neut % (Auto) (48.0-80.0) % Lymph % (Auto) (16.0-40.0) % [place] % (Auto) (0.0-15.0) % Eos % (Auto) (0.0-7.0) % Baso % (Auto) (0.0-1.5) % Neut # (Auto) (1.4-5.7) K/uL Lymph # (Auto) (0.6-2.4) K/uL [place] # (Auto) (0.0-0.8) K/uL Eos # (Auto) (0.0-0.7) K/uL Baso # (Auto) (0.0-0.1) K/uL Nucleated RBC % /100WBC Nucleated RBCs # K/uL Lactate 1.5 (0.20-2.00) mmol/L Sodium (136-145) mmol/L Potassium (3.5-5.1) mmol/L Chloride (98-107) mmol/L Carbon Dioxide (21.0-32.0) mmol/L BUN (7.0-18.0) mg/dL Creatinine (0.6-1.0) mg/dL Est Cr Clr Drug Dosing mL/min Estimated GFR (MDRD) ml/min Glucose (74-106) mg/dL POC Glucose 91 109 (60-110) mg/dL Hemoglobin A1c (4.5-6.2) % Calcium (8.5-10.1) mg/dL Total Bilirubin (0.2-1.0) mg/dL AST (15-37) IU/L ALT (14-63) IU/L Alkaline Phosphatase (46-116) U/L Total Protein (6.4-8.2) g/dL Albumin (3.4-5.0) g/dL Globulin (2.6-4.0) g/dL Albumin/Globulin Ratio (0.9-1.6) Lipase (73-393) U/L 12/25/18 12/25/18 Range/Units 05:51 05:51 WBC 8.41 (4.0-11.0) K/uL RBC 3.83 L (4.30-5.90) M/uL Hgb 8.5 L (12.0-16.0) g/dL Hct 29.3 L (36.0-46.0) % MCV 76.5 L (80.0-98.0) fL MCH 22.2 L (27.0-32.0) pg MCHC 29.0 L (31.0-37.0) g/dL RDW Std Deviation 43.8 (28.0-62.0) fl RDW Coeff of Cynthia 16 H (11.0-15.0) % Plt Count 232 (150-400) K/uL MPV 12.40 H (7.40-12.00) fL Neut % (Auto) 66.0 (48.0-80.0) % Lymph % (Auto) 25.9 (16.0-40.0) % [place] % (Auto) 7.4 (0.0-15.0) % Eos % (Auto) 0.5 (0.0-7.0) % Baso % (Auto) 0.2 (0.0-1.5) % Neut # (Auto) 5.6 (1.4-5.7) K/uL Lymph # (Auto) 2.2 (0.6-2.4) K/uL [place] # (Auto) 0.6 (0.0-0.8) K/uL Eos # (Auto) 0.0 (0.0-0.7) K/uL Baso # (Auto) 0.0 (0.0-0.1) K/uL Nucleated RBC % 0.0 /100WBC Nucleated RBCs # 0 K/uL Lactate (0.20-2.00) mmol/L Sodium 142 (136-145) mmol/L Potassium 4.2 (3.5-5.1) mmol/L Chloride 105 (98-107) mmol/L Carbon Dioxide 27.5 (21.0-32.0) mmol/L BUN 13 (7.0-18.0) mg/dL Creatinine 0.9 (0.6-1.0) mg/dL Est Cr Clr Drug Dosing 62.86 mL/min Estimated GFR (MDRD) > 60.0 ml/min Glucose 119 H (74-106) mg/dL POC Glucose (60-110) mg/dL Hemoglobin A1c (4.5-6.2) % Calcium 8.1 L (8.5-10.1) mg/dL Total Bilirubin 0.5 (0.2-1.0) mg/dL AST 26 (15-37) IU/L ALT 39 (14-63) IU/L Alkaline Phosphatase 146 H (46-116) U/L Total Protein 6.1 L (6.4-8.2) g/dL Albumin 3.2 L (3.4-5.0) g/dL Globulin 2.9 (2.6-4.0) g/dL Albumin/Globulin Ratio 1.1 (0.9-1.6) Lipase 104 (73-393) U/L Med Orders - Current: Current Medications Benzocaine/Menthol (Cepacol Sore Throat) 1 lozenge MUCMEM ASDIRECTED PRN PRN Reason: Sore Throat Last Admin: 12/25/18 07:58 Dose: 1 lozenge Dextrose/Water (Dextrose 50% In Water) 50 ml IVPUSH DAILY PRN PRN Reason: Hypoglycemia Enoxaparin Sodium (Lovenox) 40 mg SUBCUT Q24H [facility] Last Admin: 12/25/18 07:58 Dose: 40 mg Pantoprazole Sodium 40 mg/ (Sodium Chloride) 10 mls @ 300 mls/hr IV DAILY [facility] Last Admin: 12/25/18 07:59 Dose: 300 mls/hr Lactated Ringer's (Ringers, Lactated) 1,000 mls @ 150 mls/hr IV ASDIRECTED CLAIRE Last Admin: 12/25/18 03:07 Dose: 150 mls/hr Ketorolac Tromethamine (Toradol) 15 mg IVPUSH Q6H PRN PRN Reason: Pain (moderate 4-6) Ondansetron HCl (Zofran) 4 mg IVPUSH Q4H PRN PRN Reason: Nausea Sodium Chloride (Saline Flush) 10 ml FLUSH ASDIRECTED PRN PRN Reason: Keep Vein Open Last Admin: 12/24/18 03:39 Dose: 10 ml Sodium Chloride (Saline Flush) 2.5 ml FLUSH ASDIRECTED PRN PRN Reason: Keep Vein Open Discontinued Medications Diphenhydramine HCl (Benadryl) 25 mg IVPUSH ONETIME ONE Stop: 12/24/18 04:28 Last Admin: 12/24/18 04:35 Dose: 25 mg Hydromorphone HCl (Dilaudid) 1 mg IVPUSH ONETIME ONE Stop: 12/24/18 04:41 Last Admin: 12/24/18 04:47 Dose: 1 mg Sodium Chloride (Normal Saline) 1,000 mls @ 999 mls/hr IV STAT ONE Stop: 12/24/18 04:23 Last Admin: 12/24/18 03:39 Dose: 999 mls/hr Sodium Chloride (Normal Saline) Confirm Administered Dose 20 mls @ as directed .ROUTE .STK-MED ONE Stop: 12/24/18 03:36 Last Admin: 12/24/18 03:40 Dose: 20 mls/hr Sodium Chloride (Normal Saline) 1,000 mls @ 150 mls/hr IV ASDIRECTED CLAIRE Last Infusion: 12/24/18 05:06 Dose: 150 mls/hr Lactated Ringer's (Ringers, Lactated) 1,000 mls @ 150 mls/hr IV ASDIRECTED CLAIRE Last Admin: 12/24/18 05:58 Dose: 150 mls/hr Metoclopramide HCl (Reglan) 10 mg IV ONETIME ONE Stop: 12/24/18 04:28 Last Admin: 12/24/18 04:36 Dose: 10 mg Morphine Sulfate (Morphine) 4 mg IVPUSH ONETIME ONE Stop: 12/24/18 03:24 Last Admin: 12/24/18 03:39 Dose: 4 mg Morphine Sulfate (Morphine) 2 mg IVPUSH Q2H PRN PRN Reason: Pain (severe 7-10) Stop: 12/25/18 08:29 Last Admin: 12/25/18 05:40 Dose: 2 mg Ondansetron HCl (Zofran) 4 mg IVPUSH ONETIME ONE Stop: 12/24/18 03:24 Last Admin: 12/24/18 03:39 Dose: 4 mg Ondansetron HCl (Zofran) 4 mg IVPUSH ONETIME ONE Stop: 12/24/18 04:04 Last Admin: 12/24/18 04:06 Dose: 4 mg Ondansetron HCl (Zofran) Confirm Administered Dose 4 mg .ROUTE .STK-MED ONE Stop: 12/24/18 04:05 Last Admin: 12/24/18 04:07 Dose: Not Given Pantoprazole Sodium (Protonix Iv) 80 mg IVPUSH .BOLUS ONE Stop: 12/24/18 03:24 Last Admin: 12/24/18 03:39 Dose: 80 mg - Exam General: Alert, Oriented, Cooperative, No Acute Distress, Other (NG in place suctioning brown gastric fluid.) Lungs: Clear to Auscultation, Normal Respiratory Effort. No: Crackles, Wheezing Cardiovascular: Regular Rate, Regular Rhythm GI/Abdominal Exam: No Distention, Other (hypoactive bowel sounds, non tender, non distended) Extremities: Normal Inspection, No Pedal Edema Skin: Warm, Dry - Problem List Review Problem List Initiated/Reviewed/Updated: Yes - My Orders Last 24 Hours: My Active Orders 12/24/18 08:28 Blood Glucose Check, Bedside [RC] QIDACANDBED Oxygen Therapy [RC] PRN Up ad Carly [RC] ASDIRECTED VTE/DVT Education [RC] PER UNIT ROUTINE Vital Signs [RC] Q4H Ketorolac [Toradol] 15 mg IVPUSH Q6H PRN Ondansetron [Zofran] 4 mg IVPUSH Q4H PRN Resuscitation Status Routine 12/24/18 08:30 Enoxaparin [Lovenox] 40 mg SUBCUT Q24H 12/24/18 09:00 Pantoprazole [ProTONIX IV] 40 mg Sodium Chloride 0.9% [Normal Saline] 10 ml IV DAILY 12/24/18 19:48 Dextrose 50% in Water 50 ml IVPUSH DAILY PRN 12/24/18 20:01 Intake and Output Strict [RC] ASDIRECTED 12/25/18 07:53 NG [Nasogastric Orogastric Tube Removal] [OM.PC] Routine 12/25/18 Lunch Full Liquid Diet [DIET] 12/26/18 05:11 CBC WITH AUTO DIFF [HEME] AM COMPREHENSIVE METABOLIC PN,CMP [CHEM] AM 12/27/18 05:11 CBC WITH AUTO DIFF [HEME] AM COMPREHENSIVE METABOLIC PN,CMP [CHEM] AM - Plan Plan:: A: 1. Partial small bowel obstruction, resolved 2. Microcytic anemia P 1. Removed NG tube per general surgery recs. Advanced diet to full liquid and will advance as tolerated. Will get iron studies for microcytic anemia. Likely iron deficiency since patient denies any bleeding. dispo: likely dc tomorrow <Charles Gunderosn - Last Filed: 12/25/18 14:14> - Patient Data Vitals - Most Recent: Last Vital Signs Temp 36.2 C 12/25/18 11:00 Pulse 62 12/25/18 11:00 Resp 16 12/25/18 11:00 BP 131/61 12/25/18 11:00 Pulse Ox 95 12/25/18 11:00 I&O - Last 24 Hours: Intake & Output 12/24/18 12/25/18 12/25/18 22:59 06:59 14:59 Intake Total 0 1929 Output Total 550 1250 25 Balance -550 679 -25 Lab Results Last 24 Hours: Laboratory Results - last 24 hr 12/24/18 12/24/18 12/24/18 Range/Units 16:32 17:35 21:49 WBC (4.0-11.0) K/uL RBC (4.30-5.90) M/uL Hgb (12.0-16.0) g/dL Hct (36.0-46.0) % MCV (80.0-98.0) fL MCH (27.0-32.0) pg MCHC (31.0-37.0) g/dL RDW Std Deviation (28.0-62.0) fl RDW Coeff of Cynthia (11.0-15.0) % Plt Count (150-400) K/uL MPV (7.40-12.00) fL Neut % (Auto) (48.0-80.0) % Lymph % (Auto) (16.0-40.0) % [place] % (Auto) (0.0-15.0) % Eos % (Auto) (0.0-7.0) % Baso % (Auto) (0.0-1.5) % Neut # (Auto) (1.4-5.7) K/uL Lymph # (Auto) (0.6-2.4) K/uL [place] # (Auto) (0.0-0.8) K/uL Eos # (Auto) (0.0-0.7) K/uL Baso # (Auto) (0.0-0.1) K/uL Nucleated RBC % /100WBC Nucleated RBCs # K/uL Smear Path Review Absolute Retic (20-80) K/uL Percent Retic (0.5-1.5) % Immature Retic Fraction % Lactate 1.5 (0.20-2.00) mmol/L Sodium (136-145) mmol/L Potassium (3.5-5.1) mmol/L Chloride (98-107) mmol/L Carbon Dioxide (21.0-32.0) mmol/L BUN (7.0-18.0) mg/dL Creatinine (0.6-1.0) mg/dL Est Cr Clr Drug Dosing mL/min Estimated GFR (MDRD) ml/min Glucose (74-106) mg/dL POC Glucose 78 91 (60-110) mg/dL Calcium (8.5-10.1) mg/dL Iron (50-175) ug/dL TIBC (250-450) ug/dL % Saturation (20-55) % Transferrin (200-400) ug/dL Ferritin (8-252) ng/mL Total Bilirubin (0.2-1.0) mg/dL AST (15-37) IU/L ALT (14-63) IU/L Alkaline Phosphatase (46-116) U/L Total Protein (6.4-8.2) g/dL Albumin (3.4-5.0) g/dL Globulin (2.6-4.0) g/dL Albumin/Globulin Ratio (0.9-1.6) Lipase (73-393) U/L Vitamin B12 (193-986) pg/mL Folate (8.60-58.90) ng/mL 12/25/18 12/25/18 12/25/18 Range/Units 05:32 05:51 05:51 WBC 8.41 (4.0-11.0) K/uL RBC 3.83 L (4.30-5.90) M/uL Hgb 8.5 L (12.0-16.0) g/dL Hct 29.3 L (36.0-46.0) % MCV 76.5 L (80.0-98.0) fL MCH 22.2 L (27.0-32.0) pg MCHC 29.0 L (31.0-37.0) g/dL RDW Std Deviation 43.8 (28.0-62.0) fl RDW Coeff of Cynthia 16 H (11.0-15.0) % Plt Count 232 (150-400) K/uL MPV 12.40 H (7.40-12.00) fL Neut % (Auto) 66.0 (48.0-80.0) % Lymph % (Auto) 25.9 (16.0-40.0) % [place] % (Auto) 7.4 (0.0-15.0) % Eos % (Auto) 0.5 (0.0-7.0) % Baso % (Auto) 0.2 (0.0-1.5) % Neut # (Auto) 5.6 (1.4-5.7) K/uL Lymph # (Auto) 2.2 (0.6-2.4) K/uL [place] # (Auto) 0.6 (0.0-0.8) K/uL Eos # (Auto) 0.0 (0.0-0.7) K/uL Baso # (Auto) 0.0 (0.0-0.1) K/uL Nucleated RBC % 0.0 /100WBC Nucleated RBCs # 0 K/uL Smear Path Review Absolute Retic (20-80) K/uL Percent Retic (0.5-1.5) % Immature Retic Fraction % Lactate (0.20-2.00) mmol/L Sodium 142 (136-145) mmol/L Potassium 4.2 (3.5-5.1) mmol/L Chloride 105 (98-107) mmol/L Carbon Dioxide 27.5 (21.0-32.0) mmol/L BUN 13 (7.0-18.0) mg/dL Creatinine 0.9 (0.6-1.0) mg/dL Est Cr Clr Drug Dosing 62.86 mL/min Estimated GFR (MDRD) > 60.0 ml/min Glucose 119 H (74-106) mg/dL POC Glucose 109 (60-110) mg/dL Calcium 8.1 L (8.5-10.1) mg/dL Iron (50-175) ug/dL TIBC (250-450) ug/dL % Saturation (20-55) % Transferrin (200-400) ug/dL Ferritin (8-252) ng/mL Total Bilirubin 0.5 (0.2-1.0) mg/dL AST 26 (15-37) IU/L ALT 39 (14-63) IU/L Alkaline Phosphatase 146 H (46-116) U/L Total Protein 6.1 L (6.4-8.2) g/dL Albumin 3.2 L (3.4-5.0) g/dL Globulin 2.9 (2.6-4.0) g/dL Albumin/Globulin Ratio 1.1 (0.9-1.6) Lipase 104 (73-393) U/L Vitamin B12 (193-986) pg/mL Folate (8.60-58.90) ng/mL 12/25/18 12/25/18 12/25/18 Range/Units 05:51 05:51 05:51 WBC (4.0-11.0) K/uL RBC 3.72 L (4.30-5.90) M/uL Hgb (12.0-16.0) g/dL Hct (36.0-46.0) % MCV (80.0-98.0) fL MCH (27.0-32.0) pg MCHC (31.0-37.0) g/dL RDW Std Deviation (28.0-62.0) fl RDW Coeff of Cynthia (11.0-15.0) % Plt Count (150-400) K/uL MPV (7.40-12.00) fL Neut % (Auto) (48.0-80.0) % Lymph % (Auto) (16.0-40.0) % [place] % (Auto) (0.0-15.0) % Eos % (Auto) (0.0-7.0) % Baso % (Auto) (0.0-1.5) % Neut # (Auto) (1.4-5.7) K/uL Lymph # (Auto) (0.6-2.4) K/uL [place] # (Auto) (0.0-0.8) K/uL Eos # (Auto) (0.0-0.7) K/uL Baso # (Auto) (0.0-0.1) K/uL Nucleated RBC % /100WBC Nucleated RBCs # K/uL Smear Path Review Absolute Retic 49.50 (20-80) K/uL Percent Retic 1.3 (0.5-1.5) % Immature Retic Fraction 18 % Lactate (0.20-2.00) mmol/L Sodium (136-145) mmol/L Potassium (3.5-5.1) mmol/L Chloride (98-107) mmol/L Carbon Dioxide (21.0-32.0) mmol/L BUN (7.0-18.0) mg/dL Creatinine (0.6-1.0) mg/dL Est Cr Clr Drug Dosing mL/min Estimated GFR (MDRD) ml/min Glucose (74-106) mg/dL POC Glucose (60-110) mg/dL Calcium (8.5-10.1) mg/dL Iron 91 (50-175) ug/dL TIBC 377 (250-450) ug/dL % Saturation 24.14 (20-55) % Transferrin 264 (200-400) ug/dL Ferritin 11 (8-252) ng/mL Total Bilirubin (0.2-1.0) mg/dL AST (15-37) IU/L ALT (14-63) IU/L Alkaline Phosphatase (46-116) U/L Total Protein (6.4-8.2) g/dL Albumin (3.4-5.0) g/dL Globulin (2.6-4.0) g/dL Albumin/Globulin Ratio (0.9-1.6) Lipase (73-393) U/L Vitamin B12 370 (193-986) pg/mL Folate 35.00 (8.60-58.90) ng/mL 12/25/18 12/25/18 Range/Units 05:51 11:35 WBC (4.0-11.0) K/uL RBC (4.30-5.90) M/uL Hgb (12.0-16.0) g/dL Hct (36.0-46.0) % MCV (80.0-98.0) fL MCH (27.0-32.0) pg MCHC (31.0-37.0) g/dL RDW Std Deviation (28.0-62.0) fl RDW Coeff of Cynthia (11.0-15.0) % Plt Count (150-400) K/uL MPV (7.40-12.00) fL Neut % (Auto) (48.0-80.0) % Lymph % (Auto) (16.0-40.0) % [place] % (Auto) (0.0-15.0) % Eos % (Auto) (0.0-7.0) % Baso % (Auto) (0.0-1.5) % Neut # (Auto) (1.4-5.7) K/uL Lymph # (Auto) (0.6-2.4) K/uL [place] # (Auto) (0.0-0.8) K/uL Eos # (Auto) (0.0-0.7) K/uL Baso # (Auto) (0.0-0.1) K/uL Nucleated RBC % /100WBC Nucleated RBCs # K/uL Smear Path Review SENT TO PATHOLOGY Absolute Retic (20-80) K/uL Percent Retic (0.5-1.5) % Immature Retic Fraction % Lactate (0.20-2.00) mmol/L Sodium (136-145) mmol/L Potassium (3.5-5.1) mmol/L Chloride (98-107) mmol/L Carbon Dioxide (21.0-32.0) mmol/L BUN (7.0-18.0) mg/dL Creatinine (0.6-1.0) mg/dL Est Cr Clr Drug Dosing mL/min Estimated GFR (MDRD) ml/min Glucose (74-106) mg/dL POC Glucose 107 (60-110) mg/dL Calcium (8.5-10.1) mg/dL Iron (50-175) ug/dL TIBC (250-450) ug/dL % Saturation (20-55) % Transferrin (200-400) ug/dL Ferritin (8-252) ng/mL Total Bilirubin (0.2-1.0) mg/dL AST (15-37) IU/L ALT (14-63) IU/L Alkaline Phosphatase (46-116) U/L Total Protein (6.4-8.2) g/dL Albumin (3.4-5.0) g/dL Globulin (2.6-4.0) g/dL Albumin/Globulin Ratio (0.9-1.6) Lipase (73-393) U/L Vitamin B12 (193-986) pg/mL Folate (8.60-58.90) ng/mL Med Orders - Current: Current Medications Acetaminophen (Tylenol) 650 mg PO Q4H PRN PRN Reason: Pain Amitriptyline HCl (Elavil) 10 mg PO BEDTIME CLAIRE Benzocaine/Menthol (Cepacol Sore Throat) 1 lozenge MUCMEM ASDIRECTED PRN PRN Reason: Sore Throat Last Admin: 12/25/18 07:58 Dose: 1 lozenge Dextrose/Water (Dextrose 50% In Water) 50 ml IVPUSH DAILY PRN PRN Reason: Hypoglycemia Docusate Sodium (Colace) 100 mg PO DAILY PRN PRN Reason: Constipation Last Admin: 12/25/18 12:16 Dose: 100 mg Duloxetine HCl (Cymbalta) 60 mg PO DAILY [facility] Last Admin: 12/25/18 12:10 Dose: 60 mg Gabapentin (Neurontin) 100 mg PO BID [facility] Pantoprazole Sodium 40 mg/ (Sodium Chloride) 10 mls @ 300 mls/hr IV DAILY [facility] Last Admin: 12/25/18 07:59 Dose: 300 mls/hr Lactated Ringer's (Ringers, Lactated) 1,000 mls @ 150 mls/hr IV ASDIRECTED [facility] Last Admin: 12/25/18 10:45 Dose: 150 mls/hr Ketorolac Tromethamine (Toradol) 15 mg IVPUSH Q6H PRN PRN Reason: Pain (moderate 4-6) Last Admin: 12/25/18 09:38 Dose: 15 mg Ondansetron HCl (Zofran) 4 mg IVPUSH Q4H PRN PRN Reason: Nausea Simvastatin (Zocor) 40 mg PO BEDTIME [facility] Sodium Chloride (Saline Flush) 10 ml FLUSH ASDIRECTED PRN PRN Reason: Keep Vein Open Last Admin: 12/24/18 03:39 Dose: 10 ml Sodium Chloride (Saline Flush) 2.5 ml FLUSH ASDIRECTED PRN PRN Reason: Keep Vein Open Discontinued Medications Diphenhydramine HCl (Benadryl) 25 mg IVPUSH ONETIME ONE Stop: 12/24/18 04:28 Last Admin: 12/24/18 04:35 Dose: 25 mg Enoxaparin Sodium (Lovenox) 40 mg SUBCUT Q24H [facility] Last Admin: 12/25/18 07:58 Dose: 40 mg Hydromorphone HCl (Dilaudid) 1 mg IVPUSH ONETIME ONE Stop: 12/24/18 04:41 Last Admin: 12/24/18 04:47 Dose: 1 mg Sodium Chloride (Normal Saline) 1,000 mls @ 999 mls/hr IV STAT ONE Stop: 12/24/18 04:23 Last Admin: 12/24/18 03:39 Dose: 999 mls/hr Sodium Chloride (Normal Saline) Confirm Administered Dose 20 mls @ as directed .ROUTE .STK-MED ONE Stop: 12/24/18 03:36 Last Admin: 12/24/18 03:40 Dose: 20 mls/hr Sodium Chloride (Normal Saline) 1,000 mls @ 150 mls/hr IV ASDIRECTED CLAIRE Last Infusion: 12/24/18 05:06 Dose: 150 mls/hr Lactated Ringer's (Ringers, Lactated) 1,000 mls @ 150 mls/hr IV ASDIRECTED CLAIRE Last Admin: 12/24/18 05:58 Dose: 150 mls/hr Metoclopramide HCl (Reglan) 10 mg IV ONETIME ONE Stop: 12/24/18 04:28 Last Admin: 12/24/18 04:36 Dose: 10 mg Morphine Sulfate (Morphine) 4 mg IVPUSH ONETIME ONE Stop: 12/24/18 03:24 Last Admin: 12/24/18 03:39 Dose: 4 mg Morphine Sulfate (Morphine) 2 mg IVPUSH Q2H PRN PRN Reason: Pain (severe 7-10) Stop: 12/25/18 08:29 Last Admin: 12/25/18 05:40 Dose: 2 mg Ondansetron HCl (Zofran) 4 mg IVPUSH ONETIME ONE Stop: 12/24/18 03:24 Last Admin: 12/24/18 03:39 Dose: 4 mg Ondansetron HCl (Zofran) 4 mg IVPUSH ONETIME ONE Stop: 12/24/18 04:04 Last Admin: 12/24/18 04:06 Dose: 4 mg Ondansetron HCl (Zofran) Confirm Administered Dose 4 mg .ROUTE .STK-MED ONE Stop: 12/24/18 04:05 Last Admin: 12/24/18 04:07 Dose: Not Given Pantoprazole Sodium (Protonix Iv) 80 mg IVPUSH .BOLUS ONE Stop: 12/24/18 03:24 Last Admin: 12/24/18 03:39 Dose: 80 mg - Problem List & Annotations (1) Small bowel obstruction SNOMED Code(s): 484959714 Code(s): K56.69 - OTHER INTESTINAL OBSTRUCTION * DO NOT USE * Status: Acute Current Visit: Yes - Plan Plan:: I have seen and evaluated the patient and agree with the residents note unless specified in my note
--- NOTE | 2018-12-25 09:50 | CR ---
Indication: Small-bowel obstruction. Technique: Abdomen 4 view. Comparison: Abdominal radiograph 12/24/2018. Findings: Decreased caliber of small bowel loops since prior exam. The bowel gas pattern is now nonobstructive appearing. Small amount of stool in the sigmoid colon. No free air or pneumatosis. NG tube with tip in the stomach and side hole below the GE junction. Surgical clips left abdomen. Degenerative changes lower lumbar spine and both hips. Calcified granulomas in the lung bases. Impression: Decreased caliber of small bowel loops. The bowel gas pattern is nonobstructive appearing. Dictated by Shobha Cabello MD @ Dec 25 2018 9:46AM Signed by Dr. Shobha Cabello @ Dec 25 2018 9:49AM
[2018-12-25] MEDS ORDERED: Docusate Sodium 100 MG Cap PO PRN (09:52)
[2018-12-25] MEDS: DULoxetine 60 MG Cap PO SCH (12:10)
[2018-12-25] MEDS: Acetaminophen 325 MG Tab PO PRN ×2 (14:57→18:59)
--- NOTE | 2018-12-25 17:39 | PCM.SN ---
<Wilfrid Larkin - Last Filed: 12/25/18 17:38> - Free Text/Narrative Note: Doing well throughout day. Did have a large formed stool. Denies nausea at this time. Tolerating some liquids, does not have an appetite. Abd soft, non-distended, non-tender -continue current cares -Continue IV fluids at decreased rate, 100 mL/hr <Deng Castillo - Last Filed: 12/26/18 07:42> - Free Text/Narrative Note: Continuing to do well. Tolerating po intake although appetite is poor. No c/ o pain. Continues to pass gas.
[2018-12-25] MEDS: Gabapentin 100 MG Cap PO SCH (20:54)
[2018-12-25] MEDS ORDERED: Simvastatin 40 MG Tab PO SCH (21:00)
[2018-12-25] MEDS ORDERED: Amitriptyline 10 MG Tab PO SCH (21:00)
[2018-12-26] MEDS: Lactated Ringers 1,000 ML IV SCH (03:58)
[2018-12-26] MEDS: Acetaminophen 325 MG Tab PO PRN ×2 (04:11→11:21)
[2018-12-26 05:55] LABS: CARBON DIOXIDE,CO2 30.1 mmol/L (21.0-32.0); POTASSIUM,K 4.1 mmol/L (3.5-5.1)
--- NOTE | 2018-12-26 07:27 | PCM.PN ---
<Wilfrid Larkin - Last Filed: 12/26/18 07:38> - General Info Date of Service: 12/26/18 Admission Dx/Problem (Free Text): Admission Diagnosis/Problem Admission Diagnosis/Problem Intestinal obstruction Subjective Update: Continues to pass flatus, no further bowel movements. Denies nausea this am. Still minimal appetite. Functional Status: Reports: Ambulating, Urinating - Review of Systems General: Reports: No Symptoms HEENT: Reports: No Symptoms Pulmonary: Reports: No Symptoms Cardiovascular: Reports: No Symptoms Gastrointestinal: Reports: No Symptoms Genitourinary: Reports: No Symptoms - Patient Data Vitals - Most Recent: Last Vital Signs Temp 96.9 F 12/26/18 03:00 Pulse 66 12/26/18 03:00 Resp 18 12/26/18 03:00 BP 131/63 12/26/18 03:00 Pulse Ox 93 L 12/26/18 03:00 Weight - Most Recent: 190 lb I&O - Last 24 Hours: Intake & Output 12/25/18 12/26/18 12/26/18 22:59 06:59 14:59 Intake Total 1800 2701 Output Total 800 2200 Balance 1000 501 Lab Results Last 24 Hours: Laboratory Results - last 24 hr 12/25/18 12/25/18 12/25/18 Range/Units 05:51 05:51 05:51 WBC (4.0-11.0) K/uL RBC 3.72 L (4.30-5.90) M/uL Hgb (12.0-16.0) g/dL Hct (36.0-46.0) % MCV (80.0-98.0) fL MCH (27.0-32.0) pg MCHC (31.0-37.0) g/dL RDW Std Deviation (28.0-62.0) fl RDW Coeff of Cynthia (11.0-15.0) % Plt Count (150-400) K/uL MPV (7.40-12.00) fL Neut % (Auto) (48.0-80.0) % Lymph % (Auto) (16.0-40.0) % Newton % (Auto) (0.0-15.0) % Eos % (Auto) (0.0-7.0) % Baso % (Auto) (0.0-1.5) % Neut # (Auto) (1.4-5.7) K/uL Lymph # (Auto) (0.6-2.4) K/uL Newton # (Auto) (0.0-0.8) K/uL Eos # (Auto) (0.0-0.7) K/uL Baso # (Auto) (0.0-0.1) K/uL Nucleated RBC % /100WBC Nucleated RBCs # K/uL Smear Path Review Absolute Retic 49.50 (20-80) K/uL Percent Retic 1.3 (0.5-1.5) % Immature Retic Fraction 18 % Sodium (136-145) mmol/L Potassium (3.5-5.1) mmol/L Chloride (98-107) mmol/L Carbon Dioxide (21.0-32.0) mmol/L BUN (7.0-18.0) mg/dL Creatinine (0.6-1.0) mg/dL Est Cr Clr Drug Dosing mL/min Estimated GFR (MDRD) ml/min Glucose (74-106) mg/dL POC Glucose (60-110) mg/dL Calcium (8.5-10.1) mg/dL Iron 91 (50-175) ug/dL TIBC 377 (250-450) ug/dL % Saturation 24.14 (20-55) % Transferrin 264 (200-400) ug/dL Ferritin 11 (8-252) ng/mL Total Bilirubin (0.2-1.0) mg/dL AST (15-37) IU/L ALT (14-63) IU/L Alkaline Phosphatase (46-116) U/L Total Protein (6.4-8.2) g/dL Albumin (3.4-5.0) g/dL Globulin (2.6-4.0) g/dL Albumin/Globulin Ratio (0.9-1.6) Vitamin B12 370 (193-986) pg/mL Folate 35.00 (8.60-58.90) ng/mL 12/25/18 12/25/18 12/25/18 Range/Units 05:51 11:35 20:54 WBC (4.0-11.0) K/uL RBC (4.30-5.90) M/uL Hgb (12.0-16.0) g/dL Hct (36.0-46.0) % MCV (80.0-98.0) fL MCH (27.0-32.0) pg MCHC (31.0-37.0) g/dL RDW Std Deviation (28.0-62.0) fl RDW Coeff of Cynthia (11.0-15.0) % Plt Count (150-400) K/uL MPV (7.40-12.00) fL Neut % (Auto) (48.0-80.0) % Lymph % (Auto) (16.0-40.0) % Newton % (Auto) (0.0-15.0) % Eos % (Auto) (0.0-7.0) % Baso % (Auto) (0.0-1.5) % Neut # (Auto) (1.4-5.7) K/uL Lymph # (Auto) (0.6-2.4) K/uL Newton # (Auto) (0.0-0.8) K/uL Eos # (Auto) (0.0-0.7) K/uL Baso # (Auto) (0.0-0.1) K/uL Nucleated RBC % /100WBC Nucleated RBCs # K/uL Smear Path Review SENT TO PATHOLOGY Absolute Retic (20-80) K/uL Percent Retic (0.5-1.5) % Immature Retic Fraction % Sodium (136-145) mmol/L Potassium (3.5-5.1) mmol/L Chloride (98-107) mmol/L Carbon Dioxide (21.0-32.0) mmol/L BUN (7.0-18.0) mg/dL Creatinine (0.6-1.0) mg/dL Est Cr Clr Drug Dosing mL/min Estimated GFR (MDRD) ml/min Glucose (74-106) mg/dL POC Glucose 107 98 (60-110) mg/dL Calcium (8.5-10.1) mg/dL Iron (50-175) ug/dL TIBC (250-450) ug/dL % Saturation (20-55) % Transferrin (200-400) ug/dL Ferritin (8-252) ng/mL Total Bilirubin (0.2-1.0) mg/dL AST (15-37) IU/L ALT (14-63) IU/L Alkaline Phosphatase (46-116) U/L Total Protein (6.4-8.2) g/dL Albumin (3.4-5.0) g/dL Globulin (2.6-4.0) g/dL Albumin/Globulin Ratio (0.9-1.6) Vitamin B12 (193-986) pg/mL Folate (8.60-58.90) ng/mL 12/26/18 12/26/18 12/26/18 Range/Units 05:15 05:15 06:31 WBC 6.08 (4.0-11.0) K/uL RBC 3.48 L (4.30-5.90) M/uL Hgb 8.0 L (12.0-16.0) g/dL Hct 26.6 L (36.0-46.0) % MCV 76.4 L (80.0-98.0) fL MCH 23.0 L (27.0-32.0) pg MCHC 30.1 L (31.0-37.0) g/dL RDW Std Deviation 42.2 (28.0-62.0) fl RDW Coeff of Cynthia 15 (11.0-15.0) % Plt Count 183 (150-400) K/uL MPV 12.00 (7.40-12.00) fL Neut % (Auto) 61.4 (48.0-80.0) % Lymph % (Auto) 30.1 (16.0-40.0) % Newton % (Auto) 6.9 (0.0-15.0) % Eos % (Auto) 1.3 (0.0-7.0) % Baso % (Auto) 0.3 (0.0-1.5) % Neut # (Auto) 3.7 (1.4-5.7) K/uL Lymph # (Auto) 1.8 (0.6-2.4) K/uL Newton # (Auto) 0.4 (0.0-0.8) K/uL Eos # (Auto) 0.1 (0.0-0.7) K/uL Baso # (Auto) 0.0 (0.0-0.1) K/uL Nucleated RBC % 0.0 /100WBC Nucleated RBCs # 0 K/uL Smear Path Review Absolute Retic (20-80) K/uL Percent Retic (0.5-1.5) % Immature Retic Fraction % Sodium 143 (136-145) mmol/L Potassium 4.1 (3.5-5.1) mmol/L Chloride 106 (98-107) mmol/L Carbon Dioxide 30.1 (21.0-32.0) mmol/L BUN 11 (7.0-18.0) mg/dL Creatinine 1.0 (0.6-1.0) mg/dL Est Cr Clr Drug Dosing 56.58 mL/min Estimated GFR (MDRD) 55.6 ml/min Glucose 116 H (74-106) mg/dL POC Glucose 107 (60-110) mg/dL Calcium 8.2 L (8.5-10.1) mg/dL Iron (50-175) ug/dL TIBC (250-450) ug/dL % Saturation (20-55) % Transferrin (200-400) ug/dL Ferritin (8-252) ng/mL Total Bilirubin 0.5 (0.2-1.0) mg/dL AST 32 (15-37) IU/L ALT 42 (14-63) IU/L Alkaline Phosphatase 142 H (46-116) U/L Total Protein 6.0 L (6.4-8.2) g/dL Albumin 3.0 L (3.4-5.0) g/dL Globulin 3.0 (2.6-4.0) g/dL Albumin/Globulin Ratio 1.0 (0.9-1.6) Vitamin B12 (193-986) pg/mL Folate (8.60-58.90) ng/mL Med Orders - Current: Current Medications Acetaminophen (Tylenol) 650 mg PO Q4H PRN PRN Reason: Pain Last Admin: 12/26/18 04:11 Dose: 650 mg Amitriptyline HCl (Elavil) 10 mg PO BEDTIME CLAIRE Last Admin: 12/25/18 20:55 Dose: 10 mg Benzocaine/Menthol (Cepacol Sore Throat) 1 lozenge MUCMEM ASDIRECTED PRN PRN Reason: Sore Throat Last Admin: 12/25/18 14:58 Dose: 1 lozenge Dextrose/Water (Dextrose 50% In Water) 50 ml IVPUSH DAILY PRN PRN Reason: Hypoglycemia Docusate Sodium (Colace) 100 mg PO DAILY PRN PRN Reason: Constipation Last Admin: 12/25/18 12:16 Dose: 100 mg Duloxetine HCl (Cymbalta) 60 mg PO DAILY [facility] Last Admin: 12/25/18 12:10 Dose: 60 mg Gabapentin (Neurontin) 100 mg PO BID [facility] Last Admin: 12/25/18 20:54 Dose: 100 mg Pantoprazole Sodium 40 mg/ (Sodium Chloride) 10 mls @ 300 mls/hr IV DAILY [facility] Last Admin: 12/25/18 07:59 Dose: 300 mls/hr Ketorolac Tromethamine (Toradol) 15 mg IVPUSH Q6H PRN PRN Reason: Pain (moderate 4-6) Last Admin: 12/25/18 09:38 Dose: 15 mg Ondansetron HCl (Zofran) 4 mg IVPUSH Q4H PRN PRN Reason: Nausea Simvastatin (Zocor) 40 mg PO BEDTIME [facility] Last Admin: 12/25/18 20:54 Dose: 40 mg Sodium Chloride (Saline Flush) 10 ml FLUSH ASDIRECTED PRN PRN Reason: Keep Vein Open Last Admin: 12/24/18 03:39 Dose: 10 ml Sodium Chloride (Saline Flush) 2.5 ml FLUSH ASDIRECTED PRN PRN Reason: Keep Vein Open Discontinued Medications Diphenhydramine HCl (Benadryl) 25 mg IVPUSH ONETIME ONE Stop: 12/24/18 04:28 Last Admin: 12/24/18 04:35 Dose: 25 mg Enoxaparin Sodium (Lovenox) 40 mg SUBCUT Q24H [facility] Last Admin: 12/25/18 07:58 Dose: 40 mg Hydromorphone HCl (Dilaudid) 1 mg IVPUSH ONETIME ONE Stop: 12/24/18 04:41 Last Admin: 12/24/18 04:47 Dose: 1 mg Sodium Chloride (Normal Saline) 1,000 mls @ 999 mls/hr IV STAT ONE Stop: 12/24/18 04:23 Last Admin: 12/24/18 03:39 Dose: 999 mls/hr Sodium Chloride (Normal Saline) Confirm Administered Dose 20 mls @ as directed .ROUTE .STK-MED ONE Stop: 12/24/18 03:36 Last Admin: 12/24/18 03:40 Dose: 20 mls/hr Sodium Chloride (Normal Saline) 1,000 mls @ 150 mls/hr IV ASDIRECTED CLAIRE Last Infusion: 12/24/18 05:06 Dose: 150 mls/hr Lactated Ringer's (Ringers, Lactated) 1,000 mls @ 150 mls/hr IV ASDIRECTED CLAIRE Last Admin: 12/24/18 05:58 Dose: 150 mls/hr Lactated Ringer's (Ringers, Lactated) 1,000 mls @ 100 mls/hr IV ASDIRECTED CLAIRE Last Admin: 12/26/18 03:58 Dose: 100 mls/hr Metoclopramide HCl (Reglan) 10 mg IV ONETIME ONE Stop: 12/24/18 04:28 Last Admin: 12/24/18 04:36 Dose: 10 mg Morphine Sulfate (Morphine) 4 mg IVPUSH ONETIME ONE Stop: 12/24/18 03:24 Last Admin: 12/24/18 03:39 Dose: 4 mg Morphine Sulfate (Morphine) 2 mg IVPUSH Q2H PRN PRN Reason: Pain (severe 7-10) Stop: 12/25/18 08:29 Last Admin: 12/25/18 05:40 Dose: 2 mg Ondansetron HCl (Zofran) 4 mg IVPUSH ONETIME ONE Stop: 12/24/18 03:24 Last Admin: 12/24/18 03:39 Dose: 4 mg Ondansetron HCl (Zofran) 4 mg IVPUSH ONETIME ONE Stop: 12/24/18 04:04 Last Admin: 12/24/18 04:06 Dose: 4 mg Ondansetron HCl (Zofran) Confirm Administered Dose 4 mg .ROUTE .STK-MED ONE Stop: 12/24/18 04:05 Last Admin: 12/24/18 04:07 Dose: Not Given Pantoprazole Sodium (Protonix Iv) 80 mg IVPUSH .BOLUS ONE Stop: 12/24/18 03:24 Last Admin: 12/24/18 03:39 Dose: 80 mg - Exam General: Alert, Oriented, Cooperative Lungs: Clear to Auscultation, Normal Respiratory Effort Cardiovascular: Regular Rate, Regular Rhythm GI/Abdominal Exam: Soft, Non-Tender, No Distention Skin: Warm, Dry, Intact - Problem List & Annotations (1) Small bowel obstruction SNOMED Code(s): 978265688 Code(s): K56.69 - OTHER INTESTINAL OBSTRUCTION * DO NOT USE * Status: Acute Current Visit: Yes - Problem List Review Problem List Initiated/Reviewed/Updated: Yes - Assessment Assessment:: 63 yr old female that was admitted on 12/24 with small bowel obstruction. She has started to open up. Passing a lot of flatus. - Plan Plan:: -Encourage fluid intake -Ok to increase diet to regular diet -OK for discharge from a surgical standpoint if deemed appropriate by primary team Surgery will sign off at this time, if any new symptoms should arise please feel free to consult surgery again. <Deng Castillo - Last Filed: 12/26/18 07:58> - Patient Data Vitals - Most Recent: Last Vital Signs Temp 97.4 F 12/26/18 07:00 Pulse 66 12/26/18 07:00 Resp 16 12/26/18 07:00 BP 151/50 H 12/26/18 07:00 Pulse Ox 93 L 12/26/18 07:00 I&O - Last 24 Hours: Intake & Output 12/25/18 12/26/18 12/26/18 19:59 03:59 11:59 Intake Total 1800 2201 500 Output Total 800 2200 Balance 1000 2201 -1700 Lab Results Last 24 Hours: Laboratory Results - last 24 hr 12/25/18 12/25/18 12/25/18 Range/Units 05:51 05:51 05:51 WBC (4.0-11.0) K/uL RBC 3.72 L (4.30-5.90) M/uL Hgb (12.0-16.0) g/dL Hct (36.0-46.0) % MCV (80.0-98.0) fL MCH (27.0-32.0) pg MCHC (31.0-37.0) g/dL RDW Std Deviation (28.0-62.0) fl RDW Coeff of Cynthia (11.0-15.0) % Plt Count (150-400) K/uL MPV (7.40-12.00) fL Neut % (Auto) (48.0-80.0) % Lymph % (Auto) (16.0-40.0) % Newton % (Auto) (0.0-15.0) % Eos % (Auto) (0.0-7.0) % Baso % (Auto) (0.0-1.5) % Neut # (Auto) (1.4-5.7) K/uL Lymph # (Auto) (0.6-2.4) K/uL Newton # (Auto) (0.0-0.8) K/uL Eos # (Auto) (0.0-0.7) K/uL Baso # (Auto) (0.0-0.1) K/uL Nucleated RBC % /100WBC Nucleated RBCs # K/uL Smear Path Review Absolute Retic 49.50 (20-80) K/uL Percent Retic 1.3 (0.5-1.5) % Immature Retic Fraction 18 % Sodium (136-145) mmol/L Potassium (3.5-5.1) mmol/L Chloride (98-107) mmol/L Carbon Dioxide (21.0-32.0) mmol/L BUN (7.0-18.0) mg/dL Creatinine (0.6-1.0) mg/dL Est Cr Clr Drug Dosing mL/min Estimated GFR (MDRD) ml/min Glucose (74-106) mg/dL POC Glucose (60-110) mg/dL Calcium (8.5-10.1) mg/dL Iron 91 (50-175) ug/dL TIBC 377 (250-450) ug/dL % Saturation 24.14 (20-55) % Transferrin 264 (200-400) ug/dL Ferritin 11 (8-252) ng/mL Total Bilirubin (0.2-1.0) mg/dL AST (15-37) IU/L ALT (14-63) IU/L Alkaline Phosphatase (46-116) U/L Total Protein (6.4-8.2) g/dL Albumin (3.4-5.0) g/dL Globulin (2.6-4.0) g/dL Albumin/Globulin Ratio (0.9-1.6) Vitamin B12 370 (193-986) pg/mL Folate 35.00 (8.60-58.90) ng/mL 12/25/18 12/25/1819 Range/Units 05:51 11:35 20:54 WBC (4.0-11.0) K/uL RBC (4.30-5.90) M/uL Hgb (12.0-16.0) g/dL Hct (36.0-46.0) % MCV (80.0-98.0) fL MCH (27.0-32.0) pg MCHC (31.0-37.0) g/dL RDW Std Deviation (28.0-62.0) fl RDW Coeff of Cynthia (11.0-15.0) % Plt Count (150-400) K/uL MPV (7.40-12.00) fL Neut % (Auto) (48.0-80.0) % Lymph % (Auto) (16.0-40.0) % Newton % (Auto) (0.0-15.0) % Eos % (Auto) (0.0-7.0) % Baso % (Auto) (0.0-1.5) % Neut # (Auto) (1.4-5.7) K/uL Lymph # (Auto) (0.6-2.4) K/uL Newton # (Auto) (0.0-0.8) K/uL Eos # (Auto) (0.0-0.7) K/uL Baso # (Auto) (0.0-0.1) K/uL Nucleated RBC % /100WBC Nucleated RBCs # K/uL Smear Path Review SENT TO PATHOLOGY Absolute Retic (20-80) K/uL Percent Retic (0.5-1.5) % Immature Retic Fraction % Sodium (136-145) mmol/L Potassium (3.5-5.1) mmol/L Chloride (98-107) mmol/L Carbon Dioxide (21.0-32.0) mmol/L BUN (7.0-18.0) mg/dL Creatinine (0.6-1.0) mg/dL Est Cr Clr Drug Dosing mL/min Estimated GFR (MDRD) ml/min Glucose (74-106) mg/dL POC Glucose 107 98 (60-110) mg/dL Calcium (8.5-10.1) mg/dL Iron (50-175) ug/dL TIBC (250-450) ug/dL % Saturation (20-55) % Transferrin (200-400) ug/dL Ferritin (8-252) ng/mL Total Bilirubin (0.2-1.0) mg/dL AST (15-37) IU/L ALT (14-63) IU/L Alkaline Phosphatase (46-116) U/L Total Protein (6.4-8.2) g/dL Albumin (3.4-5.0) g/dL Globulin (2.6-4.0) g/dL Albumin/Globulin Ratio (0.9-1.6) Vitamin B12 (193-986) pg/mL Folate (8.60-58.90) ng/mL 12/26/18 12/26/18 12/26/18 Range/Units 05:15 05:15 06:31 WBC 6.08 (4.0-11.0) K/uL RBC 3.48 L (4.30-5.90) M/uL Hgb 8.0 L (12.0-16.0) g/dL Hct 26.6 L (36.0-46.0) % MCV 76.4 L (80.0-98.0) fL MCH 23.0 L (27.0-32.0) pg MCHC 30.1 L (31.0-37.0) g/dL RDW Std Deviation 42.2 (28.0-62.0) fl RDW Coeff of Cynthia 15 (11.0-15.0) % Plt Count 183 (150-400) K/uL MPV 12.00 (7.40-12.00) fL Neut % (Auto) 61.4 (48.0-80.0) % Lymph % (Auto) 30.1 (16.0-40.0) % Newton % (Auto) 6.9 (0.0-15.0) % Eos % (Auto) 1.3 (0.0-7.0) % Baso % (Auto) 0.3 (0.0-1.5) % Neut # (Auto) 3.7 (1.4-5.7) K/uL Lymph # (Auto) 1.8 (0.6-2.4) K/uL Newton # (Auto) 0.4 (0.0-0.8) K/uL Eos # (Auto) 0.1 (0.0-0.7) K/uL Baso # (Auto) 0.0 (0.0-0.1) K/uL Nucleated RBC % 0.0 /100WBC Nucleated RBCs # 0 K/uL Smear Path Review Absolute Retic (20-80) K/uL Percent Retic (0.5-1.5) % Immature Retic Fraction % Sodium 143 (136-145) mmol/L Potassium 4.1 (3.5-5.1) mmol/L Chloride 106 (98-107) mmol/L Carbon Dioxide 30.1 (21.0-32.0) mmol/L BUN 11 (7.0-18.0) mg/dL Creatinine 1.0 (0.6-1.0) mg/dL Est Cr Clr Drug Dosing 56.58 mL/min Estimated GFR (MDRD) 55.6 ml/min Glucose 116 H (74-106) mg/dL POC Glucose 107 (60-110) mg/dL Calcium 8.2 L (8.5-10.1) mg/dL Iron (50-175) ug/dL TIBC (250-450) ug/dL % Saturation (20-55) % Transferrin (200-400) ug/dL Ferritin (8-252) ng/mL Total Bilirubin 0.5 (0.2-1.0) mg/dL AST 32 (15-37) IU/L ALT 42 (14-63) IU/L Alkaline Phosphatase 142 H (46-116) U/L Total Protein 6.0 L (6.4-8.2) g/dL Albumin 3.0 L (3.4-5.0) g/dL Globulin 3.0 (2.6-4.0) g/dL Albumin/Globulin Ratio 1.0 (0.9-1.6) Vitamin B12 (193-986) pg/mL Folate (8.60-58.90) ng/mL Med Orders - Current: Current Medications Acetaminophen (Tylenol) 650 mg PO Q4H PRN PRN Reason: Pain Last Admin: 12/26/18 04:11 Dose: 650 mg Amitriptyline HCl (Elavil) 10 mg PO BEDTIME CLAIRE Last Admin: 12/25/18 20:55 Dose: 10 mg Benzocaine/Menthol (Cepacol Sore Throat) 1 lozenge MUCMEM ASDIRECTED PRN PRN Reason: Sore Throat Last Admin: 12/25/18 14:58 Dose: 1 lozenge Dextrose/Water (Dextrose 50% In Water) 50 ml IVPUSH DAILY PRN PRN Reason: Hypoglycemia Docusate Sodium (Colace) 100 mg PO DAILY PRN PRN Reason: Constipation Last Admin: 12/25/18 12:16 Dose: 100 mg Duloxetine HCl (Cymbalta) 60 mg PO DAILY [facility] Last Admin: 12/25/18 12:10 Dose: 60 mg Gabapentin (Neurontin) 100 mg PO BID [facility] Last Admin: 12/25/18 20:54 Dose: 100 mg Pantoprazole Sodium 40 mg/ (Sodium Chloride) 10 mls @ 300 mls/hr IV DAILY [facility] Last Admin: 12/25/18 07:59 Dose: 300 mls/hr Ketorolac Tromethamine (Toradol) 15 mg IVPUSH Q6H PRN PRN Reason: Pain (moderate 4-6) Last Admin: 12/25/18 09:38 Dose: 15 mg Ondansetron HCl (Zofran) 4 mg IVPUSH Q4H PRN PRN Reason: Nausea Simvastatin (Zocor) 40 mg PO BEDTIME [facility] Last Admin: 12/25/18 20:54 Dose: 40 mg Sodium Chloride (Saline Flush) 10 ml FLUSH ASDIRECTED PRN PRN Reason: Keep Vein Open Last Admin: 12/24/18 03:39 Dose: 10 ml Sodium Chloride (Saline Flush) 2.5 ml FLUSH ASDIRECTED PRN PRN Reason: Keep Vein Open Discontinued Medications Diphenhydramine HCl (Benadryl) 25 mg IVPUSH ONETIME ONE Stop: 12/24/18 04:28 Last Admin: 12/24/18 04:35 Dose: 25 mg Enoxaparin Sodium (Lovenox) 40 mg SUBCUT Q24H [facility] Last Admin: 12/25/18 07:58 Dose: 40 mg Hydromorphone HCl (Dilaudid) 1 mg IVPUSH ONETIME ONE Stop: 12/24/18 04:41 Last Admin: 12/24/18 04:47 Dose: 1 mg Sodium Chloride (Normal Saline) 1,000 mls @ 999 mls/hr IV STAT ONE Stop: 12/24/18 04:23 Last Admin: 12/24/18 03:39 Dose: 999 mls/hr Sodium Chloride (Normal Saline) Confirm Administered Dose 20 mls @ as directed .ROUTE .STK-MED ONE Stop: 12/24/18 03:36 Last Admin: 12/24/18 03:40 Dose: 20 mls/hr Sodium Chloride (Normal Saline) 1,000 mls @ 150 mls/hr IV ASDIRECTED CLAIRE Last Infusion: 12/24/18 05:06 Dose: 150 mls/hr Lactated Ringer's (Ringers, Lactated) 1,000 mls @ 150 mls/hr IV ASDIRECTED CLAIRE Last Admin: 12/24/18 05:58 Dose: 150 mls/hr Lactated Ringer's (Ringers, Lactated) 1,000 mls @ 100 mls/hr IV ASDIRECTED CLAIRE Last Admin: 12/26/18 03:58 Dose: 100 mls/hr Metoclopramide HCl (Reglan) 10 mg IV ONETIME ONE Stop: 12/24/18 04:28 Last Admin: 12/24/18 04:36 Dose: 10 mg Morphine Sulfate (Morphine) 4 mg IVPUSH ONETIME ONE Stop: 12/24/18 03:24 Last Admin: 12/24/18 03:39 Dose: 4 mg Morphine Sulfate (Morphine) 2 mg IVPUSH Q2H PRN PRN Reason: Pain (severe 7-10) Stop: 12/25/18 08:29 Last Admin: 12/25/18 05:40 Dose: 2 mg Ondansetron HCl (Zofran) 4 mg IVPUSH ONETIME ONE Stop: 12/24/18 03:24 Last Admin: 12/24/18 03:39 Dose: 4 mg Ondansetron HCl (Zofran) 4 mg IVPUSH ONETIME ONE Stop: 12/24/18 04:04 Last Admin: 12/24/18 04:06 Dose: 4 mg Ondansetron HCl (Zofran) Confirm Administered Dose 4 mg .ROUTE .STK-MED ONE Stop: 12/24/18 04:05 Last Admin: 12/24/18 04:07 Dose: Not Given Pantoprazole Sodium (Protonix Iv) 80 mg IVPUSH .BOLUS ONE Stop: 12/24/18 03:24 Last Admin: 12/24/18 03:39 Dose: 80 mg - Problem List & Annotations (1) Small bowel obstruction SNOMED Code(s): 064808941 Code(s): K56.69 - OTHER INTESTINAL OBSTRUCTION * DO NOT USE * Status: Acute Current Visit: Yes - Problem List Review Problem List Initiated/Reviewed/Updated: Yes - My Orders Last 24 Hours: My Active Orders 12/26/18 08:30 Abdomen 2V AP Flat Upright [CR] DAILY - Plan Plan:: Continues to do well. No indication for surgery. Will sign off.
--- NOTE | 2018-12-26 08:55 | CR ---
INDICATION: Small-bowel obstruction. COMPARISON: 12/25/2018. TECHNIQUE: Supine and upright views of the abdomen (4 images). FINDINGS: Paucity of bowel gas, but no specific evidence of bowel obstruction. Surgical clips and suture in the abdomen are again noted. Calcified granulomas in the lung bases are again noted. Degenerative changes in the imaged osseous structures. No pneumatosis or pneumoperitoneum identified. IMPRESSION: Paucity of bowel gas, but no specific evidence of obstruction. Dictated by Kvng Crum MD @ Dec 26 2018 8:50AM Signed by Dr. Kvng Crum @ Dec 26 2018 8:52AM
[2018-12-26] MEDS: Pantoprazole 40 MG in Sodium Chloride 0.9% 10 ML IV SCH (09:20)
[2018-12-26] MEDS: DULoxetine 60 MG Cap PO SCH (09:21)
[2018-12-26] MEDS: Gabapentin 100 MG Cap PO SCH (09:21)
[2018-12-26 10:54] VITALS: BP 135/69; PULSE 62
--- NOTE | 2018-12-26 12:06 | PCM.DCSUM1 ---
<Filippo Acuna - Last Filed: 12/27/18 20:47> Discharge Summary - Hospital Course Free Text/Narrative:: 63 y/o female who presented to the ER complaining of worsening abdominal pain, nausea, vomiting. CT abdomen/pelvis showed a partial small bowel obstruction. She was admitted for partial small bowel obstruction. General surgery was consulted and started an NG tube for decompression. Recommended conservative management. She remained with an NG tube for 2 days during this hospitalization. The NG tube was removed once she was passing gas. Serial abdominal xrays were ordered which showed the resolution of the small bowel obstruction. During this hospitalization she was found to be anemic with Hg 8.5. She denied any blood on her stool. Her Hg remained stable. At time of discharge, she was tolerating PO intake and she was having bowel movements. She was discharged home with instructions to follow-u with her PCP and GI for possible endoscopy. - Discharge Data Discharge Date: 12/26/18 Discharge Disposition: Home, Self-Care 01 Condition: Good - Referral to Home Health Primary Care Physician: PCP None - Patient Summary/Data Consults: Consultations 12/24/18 05:16 Consult to Physician [CONS] Stat - Patient Instructions Diet: Diabetic Diet Activity: As Tolerated Notify Provider of: Fever, Increased Pain, Swelling and Redness, Nausea and/or Vomiting - Discharge Plan *PRESCRIPTION DRUG MONITORING PROGRAM REVIEWED*: Not Applicable *COPY OF PRESCRIPTION DRUG MONITORING REPORT IN PATIENT RAVINDER: Not Applicable Home Medications: Home Meds Amitriptyline HCl 10 mg PO BEDTIME 11/07/17 [History] DULoxetine HCl [Cymbalta] 60 mg PO DAILY 11/07/17 [History] Furosemide 20 mg PO QAM 11/07/17 [History] Simvastatin [Zocor] 40 mg PO BEDTIME 11/07/17 [History] hydroCHLOROthiazide [Hydrochlorothiazide] 25 mg PO QAM 11/07/17 [History] metFORMIN HCl [Metformin HCl] 500 mg PO BID 11/07/17 [History] ALPRAZolam [Alprazolam] 0.5 mg PO BEDTIME 12/24/18 [History] Gabapentin [Neurontin] 100 mg PO BID 12/24/18 [History] Losartan [Cozaar] 50 mg PO DAILY 12/24/18 [History] Docusate Sodium [Colace] 100 mg PO BID PRN 12/26/18 [History] Patient Handouts: Small Bowel Obstruction, [id number] Referrals: Daria Keller NP [Ordering Only Provider] - 01/03/19 10:15 am (Please arrive 15 minutes early for check in, bring photo ID and insurance cards.) Lois Bhagat MD [Ordering Only Provider] - 01/08/19 3:20 pm (Arrive 15 minutes early with an insurance card and an ID) - Discharge Summary/Plan Comment DC Time >30 min.: No - Patient Data Vitals - Most Recent: Last Vital Signs Temp 36.7 C 12/26/18 10:54 Pulse 62 12/26/18 10:54 Resp 16 12/26/18 10:54 BP 135/69 12/26/18 10:54 Pulse Ox 95 12/26/18 10:54 Weight - Most Recent: 86.183 kg I&O - Last 24 hours: Intake & Output 12/25/18 12/26/18 12/26/18 22:59 06:59 14:59 Intake Total 1800 2701 Output Total 800 2200 Balance 1000 501 Lab Results - Last 24 hrs: Laboratory Results - last 24 hr 12/25/18 12/25/18 12/26/18 Range/Units 05:51 20:54 05:15 WBC 6.08 (4.0-11.0) K/uL RBC 3.48 L (4.30-5.90) M/uL Hgb 8.0 L (12.0-16.0) g/dL Hct 26.6 L (36.0-46.0) % MCV 76.4 L (80.0-98.0) fL MCH 23.0 L (27.0-32.0) pg MCHC 30.1 L (31.0-37.0) g/dL RDW Std Deviation 42.2 (28.0-62.0) fl RDW Coeff of Cynthia 15 (11.0-15.0) % Plt Count 183 (150-400) K/uL MPV 12.00 (7.40-12.00) fL Neut % (Auto) 61.4 (48.0-80.0) % Lymph % (Auto) 30.1 (16.0-40.0) % [place] % (Auto) 6.9 (0.0-15.0) % Eos % (Auto) 1.3 (0.0-7.0) % Baso % (Auto) 0.3 (0.0-1.5) % Neut # (Auto) 3.7 (1.4-5.7) K/uL Lymph # (Auto) 1.8 (0.6-2.4) K/uL [place] # (Auto) 0.4 (0.0-0.8) K/uL Eos # (Auto) 0.1 (0.0-0.7) K/uL Baso # (Auto) 0.0 (0.0-0.1) K/uL Nucleated RBC % 0.0 /100WBC Nucleated RBCs # 0 K/uL Sodium (136-145) mmol/L Potassium (3.5-5.1) mmol/L Chloride (98-107) mmol/L Carbon Dioxide (21.0-32.0) mmol/L BUN (7.0-18.0) mg/dL Creatinine (0.6-1.0) mg/dL Est Cr Clr Drug Dosing mL/min Estimated GFR (MDRD) ml/min Glucose (74-106) mg/dL POC Glucose 98 (60-110) mg/dL Calcium (8.5-10.1) mg/dL Total Bilirubin (0.2-1.0) mg/dL AST (15-37) IU/L ALT (14-63) IU/L Alkaline Phosphatase (46-116) U/L Total Protein (6.4-8.2) g/dL Albumin (3.4-5.0) g/dL Globulin (2.6-4.0) g/dL Albumin/Globulin Ratio (0.9-1.6) Vitamin B12 370 (193-986) pg/mL Folate 35.00 (8.60-58.90) ng/mL 12/26/18 12/26/18 12/26/18 Range/Units 05:15 06:31 11:15 WBC (4.0-11.0) K/uL RBC (4.30-5.90) M/uL Hgb (12.0-16.0) g/dL Hct (36.0-46.0) % MCV (80.0-98.0) fL MCH (27.0-32.0) pg MCHC (31.0-37.0) g/dL RDW Std Deviation (28.0-62.0) fl RDW Coeff of Cynthia (11.0-15.0) % Plt Count (150-400) K/uL MPV (7.40-12.00) fL Neut % (Auto) (48.0-80.0) % Lymph % (Auto) (16.0-40.0) % [place] % (Auto) (0.0-15.0) % Eos % (Auto) (0.0-7.0) % Baso % (Auto) (0.0-1.5) % Neut # (Auto) (1.4-5.7) K/uL Lymph # (Auto) (0.6-2.4) K/uL [place] # (Auto) (0.0-0.8) K/uL Eos # (Auto) (0.0-0.7) K/uL Baso # (Auto) (0.0-0.1) K/uL Nucleated RBC % /100WBC Nucleated RBCs # K/uL Sodium 143 (136-145) mmol/L Potassium 4.1 (3.5-5.1) mmol/L Chloride 106 (98-107) mmol/L Carbon Dioxide 30.1 (21.0-32.0) mmol/L BUN 11 (7.0-18.0) mg/dL Creatinine 1.0 (0.6-1.0) mg/dL Est Cr Clr Drug Dosing 56.58 mL/min Estimated GFR (MDRD) 55.6 ml/min Glucose 116 H (74-106) mg/dL POC Glucose 107 115 H (60-110) mg/dL Calcium 8.2 L (8.5-10.1) mg/dL Total Bilirubin 0.5 (0.2-1.0) mg/dL AST 32 (15-37) IU/L ALT 42 (14-63) IU/L Alkaline Phosphatase 142 H (46-116) U/L Total Protein 6.0 L (6.4-8.2) g/dL Albumin 3.0 L (3.4-5.0) g/dL Globulin 3.0 (2.6-4.0) g/dL Albumin/Globulin Ratio 1.0 (0.9-1.6) Vitamin B12 (193-986) pg/mL Folate (8.60-58.90) ng/mL Med Orders - Current: Current Medications Acetaminophen (Tylenol) 650 mg PO Q4H PRN PRN Reason: Pain Last Admin: 12/26/18 11:21 Dose: 650 mg Amitriptyline HCl (Elavil) 10 mg PO BEDTIME [facility] Last Admin: 12/25/18 20:55 Dose: 10 mg Benzocaine/Menthol (Cepacol Sore Throat) 1 lozenge MUCMEM ASDIRECTED PRN PRN Reason: Sore Throat Last Admin: 12/25/18 14:58 Dose: 1 lozenge Dextrose/Water (Dextrose 50% In Water) 50 ml IVPUSH DAILY PRN PRN Reason: Hypoglycemia Docusate Sodium (Colace) 100 mg PO DAILY PRN PRN Reason: Constipation Last Admin: 12/25/18 12:16 Dose: 100 mg Duloxetine HCl (Cymbalta) 60 mg PO DAILY [facility] Last Admin: 12/26/18 09:21 Dose: 60 mg Gabapentin (Neurontin) 100 mg PO BID [facility] Last Admin: 12/26/18 09:21 Dose: 100 mg Pantoprazole Sodium 40 mg/ (Sodium Chloride) 10 mls @ 300 mls/hr IV DAILY [facility] Last Admin: 12/26/18 09:20 Dose: 300 mls/hr Ketorolac Tromethamine (Toradol) 15 mg IVPUSH Q6H PRN PRN Reason: Pain (moderate 4-6) Last Admin: 12/25/18 09:38 Dose: 15 mg Ondansetron HCl (Zofran) 4 mg IVPUSH Q4H PRN PRN Reason: Nausea Simvastatin (Zocor) 40 mg PO BEDTIME [facility] Last Admin: 12/25/18 20:54 Dose: 40 mg Sodium Chloride (Saline Flush) 10 ml FLUSH ASDIRECTED PRN PRN Reason: Keep Vein Open Last Admin: 12/24/18 03:39 Dose: 10 ml Sodium Chloride (Saline Flush) 2.5 ml FLUSH ASDIRECTED PRN PRN Reason: Keep Vein Open Discontinued Medications Diphenhydramine HCl (Benadryl) 25 mg IVPUSH ONETIME ONE Stop: 12/24/18 04:28 Last Admin: 12/24/18 04:35 Dose: 25 mg Enoxaparin Sodium (Lovenox) 40 mg SUBCUT Q24H [facility] Last Admin: 12/25/18 07:58 Dose: 40 mg Hydromorphone HCl (Dilaudid) 1 mg IVPUSH ONETIME ONE Stop: 12/24/18 04:41 Last Admin: 12/24/18 04:47 Dose: 1 mg Sodium Chloride (Normal Saline) 1,000 mls @ 999 mls/hr IV STAT ONE Stop: 12/24/18 04:23 Last Admin: 12/24/18 03:39 Dose: 999 mls/hr Sodium Chloride (Normal Saline) Confirm Administered Dose 20 mls @ as directed .ROUTE .STK-MED ONE Stop: 12/24/18 03:36 Last Admin: 12/24/18 03:40 Dose: 20 mls/hr Sodium Chloride (Normal Saline) 1,000 mls @ 150 mls/hr IV ASDIRECTED [facility] Last Infusion: 12/24/18 05:06 Dose: 150 mls/hr Lactated Ringer's (Ringers, Lactated) 1,000 mls @ 150 mls/hr IV ASDIRECTED [facility] Last Admin: 12/24/18 05:58 Dose: 150 mls/hr Lactated Ringer's (Ringers, Lactated) 1,000 mls @ 100 mls/hr IV ASDIRECTED [facility] Last Admin: 12/26/18 03:58 Dose: 100 mls/hr Metoclopramide HCl (Reglan) 10 mg IV ONETIME ONE Stop: 12/24/18 04:28 Last Admin: 12/24/18 04:36 Dose: 10 mg Morphine Sulfate (Morphine) 4 mg IVPUSH ONETIME ONE Stop: 12/24/18 03:24 Last Admin: 12/24/18 03:39 Dose: 4 mg Morphine Sulfate (Morphine) 2 mg IVPUSH Q2H PRN PRN Reason: Pain (severe 7-10) Stop: 12/25/18 08:29 Last Admin: 12/25/18 05:40 Dose: 2 mg Ondansetron HCl (Zofran) 4 mg IVPUSH ONETIME ONE Stop: 12/24/18 03:24 Last Admin: 12/24/18 03:39 Dose: 4 mg Ondansetron HCl (Zofran) 4 mg IVPUSH ONETIME ONE Stop: 12/24/18 04:04 Last Admin: 12/24/18 04:06 Dose: 4 mg Ondansetron HCl (Zofran) Confirm Administered Dose 4 mg .ROUTE .STK-MED ONE Stop: 12/24/18 04:05 Last Admin: 12/24/18 04:07 Dose: Not Given Pantoprazole Sodium (Protonix Iv) 80 mg IVPUSH .BOLUS ONE Stop: 12/24/18 03:24 Last Admin: 12/24/18 03:39 Dose: 80 mg <Charles Gunderson - Last Filed: 12/28/18 21:52> Discharge Summary - Hospital Course HPI Initial Comments: I have seen and evaluated the patient and agree with the residents note unless specified in my note - Referral to Home Health Primary Care Physician: PCP None - Discharge Diagnosis/Problem(s) (1) Small bowel obstruction SNOMED Code(s): 749864769 ICD Code: K56.69 - OTHER INTESTINAL OBSTRUCTION * DO NOT USE * Status: Acute - Patient Summary/Data Consults: Consultations 12/24/18 05:16 Consult to Physician [CONS] Stat - Patient Data Vitals - Most Recent: Last Vital Signs Temp 36.7 C 12/26/18 10:54 Pulse 62 12/26/18 10:54 Resp 16 12/26/18 10:54 BP 135/69 12/26/18 10:54 Pulse Ox 95 12/26/18 10:54 Med Orders - Current: Current Medications Discontinued Medications Acetaminophen (Tylenol) 650 mg PO Q4H PRN PRN Reason: Pain Last Admin: 12/26/18 11:21 Dose: 650 mg Amitriptyline HCl (Elavil) 10 mg PO BEDTIME [facility] Last Admin: 12/25/18 20:55 Dose: 10 mg Benzocaine/Menthol (Cepacol Sore Throat) 1 lozenge MUCMEM ASDIRECTED PRN PRN Reason: Sore Throat Last Admin: 12/25/18 14:58 Dose: 1 lozenge Dextrose/Water (Dextrose 50% In Water) 50 ml IVPUSH DAILY PRN PRN Reason: Hypoglycemia Diphenhydramine HCl (Benadryl) 25 mg IVPUSH ONETIME ONE Stop: 12/24/18 04:28 Last Admin: 12/24/18 04:35 Dose: 25 mg Docusate Sodium (Colace) 100 mg PO DAILY PRN PRN Reason: Constipation Last Admin: 12/25/18 12:16 Dose: 100 mg Duloxetine HCl (Cymbalta) 60 mg PO DAILY [facility] Last Admin: 12/26/18 09:21 Dose: 60 mg Enoxaparin Sodium (Lovenox) 40 mg SUBCUT Q24H [facility] Last Admin: 12/25/18 07:58 Dose: 40 mg Gabapentin (Neurontin) 100 mg PO BID [facility] Last Admin: 12/26/18 09:21 Dose: 100 mg Hydromorphone HCl (Dilaudid) 1 mg IVPUSH ONETIME ONE Stop: 12/24/18 04:41 Last Admin: 12/24/18 04:47 Dose: 1 mg Sodium Chloride (Normal Saline) 1,000 mls @ 999 mls/hr IV STAT ONE Stop: 12/24/18 04:23 Last Admin: 12/24/18 03:39 Dose: 999 mls/hr Sodium Chloride (Normal Saline) Confirm Administered Dose 20 mls @ as directed .ROUTE .STK-MED ONE Stop: 12/24/18 03:36 Last Admin: 12/24/18 03:40 Dose: 20 mls/hr Sodium Chloride (Normal Saline) 1,000 mls @ 150 mls/hr IV ASDIRECTED [facility] Last Infusion: 12/24/18 05:06 Dose: 150 mls/hr Lactated Ringer's (Ringers, Lactated) 1,000 mls @ 150 mls/hr IV ASDIRECTED [facility] Last Admin: 12/24/18 05:58 Dose: 150 mls/hr Pantoprazole Sodium 40 mg/ (Sodium Chloride) 10 mls @ 300 mls/hr IV DAILY [facility] Last Admin: 12/26/18 09:20 Dose: 300 mls/hr Lactated Ringer's (Ringers, Lactated) 1,000 mls @ 100 mls/hr IV ASDIRECTED [facility] Last Admin: 12/26/18 03:58 Dose: 100 mls/hr Influenza Virus Vaccine (Pharmacy To Dose - Influenza Vaccine) 1 each IM ONETIME ONE Stop: 12/26/18 13:56 Last Admin: 12/26/18 14:08 Dose: Not Given Influenza Virus Vaccine (Fluzone High-Dose 2018- Syringe) 180 mcg IM .ONCE ONE Stop: 12/26/18 14:16 Last Admin: 12/26/18 14:05 Dose: 180 mcg Ketorolac Tromethamine (Toradol) 15 mg IVPUSH Q6H PRN PRN Reason: Pain (moderate 4-6) Last Admin: 12/25/18 09:38 Dose: 15 mg Metoclopramide HCl (Reglan) 10 mg IV ONETIME ONE Stop: 12/24/18 04:28 Last Admin: 12/24/18 04:36 Dose: 10 mg Morphine Sulfate (Morphine) 4 mg IVPUSH ONETIME ONE Stop: 12/24/18 03:24 Last Admin: 12/24/18 03:39 Dose: 4 mg Morphine Sulfate (Morphine) 2 mg IVPUSH Q2H PRN PRN Reason: Pain (severe 7-10) Stop: 12/25/18 08:29 Last Admin: 12/25/18 05:40 Dose: 2 mg Ondansetron HCl (Zofran) 4 mg IVPUSH ONETIME ONE Stop: 12/24/18 03:24 Last Admin: 12/24/18 03:39 Dose: 4 mg Ondansetron HCl (Zofran) 4 mg IVPUSH ONETIME ONE Stop: 12/24/18 04:04 Last Admin: 12/24/18 04:06 Dose: 4 mg Ondansetron HCl (Zofran) Confirm Administered Dose 4 mg .ROUTE .STK-MED ONE Stop: 12/24/18 04:05 Last Admin: 12/24/18 04:07 Dose: Not Given Ondansetron HCl (Zofran) 4 mg IVPUSH Q4H PRN PRN Reason: Nausea Pantoprazole Sodium (Protonix Iv) 80 mg IVPUSH .BOLUS ONE Stop: 12/24/18 03:24 Last Admin: 12/24/18 03:39 Dose: 80 mg Simvastatin (Zocor) 40 mg PO BEDTIME [facility] Last Admin: 12/25/18 20:54 Dose: 40 mg Sodium Chloride (Saline Flush) 10 ml FLUSH ASDIRECTED PRN PRN Reason: Keep Vein Open Last Admin: 12/24/18 03:39 Dose: 10 ml Sodium Chloride (Saline Flush) 2.5 ml FLUSH ASDIRECTED PRN PRN Reason: Keep Vein Open
== END 2018-12-26 14:47 | disposition home or self-care (01) | DRG 388 ==
LOC: MW.ED 03:03 → MW.MS 05:17
PROVIDERS: ADMIT Student in an Organized Health Care Education/Training Program; ATTEND Student in an Organized Health Care Education/Training Program
PROC: 0D9670Z Drainage of Stomach with Drainage Device, Via Natural or Artificial Opening (ICD-10-PCS; 2018-12-24)
PROC: 3E02340 Introduction of Influenza Vaccine into Muscle, Percutaneous Approach (ICD-10-PCS; principal; 2018-12-26)
DX: K56.609 Unspecified intestinal obstruction, unspecified as to partial versus complete obstruction (principal); K56.600 Partial intestinal obstruction, unspecified as to cause; K85.90 Acute pancreatitis without necrosis or infection, unspecified; E11.40 Type 2 diabetes mellitus with diabetic neuropathy, unspecified; J43.9 Emphysema, unspecified; G89.29 Other chronic pain; M54.9 Dorsalgia, unspecified; M79.7 Fibromyalgia; N17.9 Acute kidney failure, unspecified; E78.00 Pure hypercholesterolemia, unspecified; I10 Essential (primary) hypertension; Z98.84 Bariatric surgery status; J44.9 Chronic obstructive pulmonary disease, unspecified; E11.42 Type 2 diabetes mellitus with diabetic polyneuropathy; D64.9 Anemia, unspecified; Z88.1 Allergy status to other antibiotic agents; Z23 Encounter for immunization; Z79.84 Long term (current) use of oral hypoglycemic drugs; Z79.899 Other long term (current) drug therapy; Z98.49 Cataract extraction status, unspecified eye; Z87.442 Personal history of urinary calculi; Z90.49 Acquired absence of other specified parts of digestive tract; Z87.891 Personal history of nicotine dependence; Z90.710 Acquired absence of both cervix and uterus
CPT/HCPCS: 36415; 74176; 80053; 82150; 83690; 85025; 96361; 96374; 96375; 99285; C9113; J1170; J1200; J2270; J2405 ×2; J2765; J7040 ×2; 74018; 74018-26; 74019; 74019-26; 80061; 81003; 82607; 82728; 82746; 82962; 83036; 83550; 83605; 85045; 88104; 90662; 99283; A9270-GY; G0008; G0480; J1650; J1885; J7030; J7050; J7120

== ENCOUNTER 2019-12-25 21:11 | Inpatient (IN) | payer MEDICARE ==
[2019-12-25] MEDS ORDERED: Sodium Chloride 0.9% 2.5 ML Syringe FLUSH PRN (21:24)
[2019-12-25] MEDS ORDERED: Sodium Chloride 0.9% 10 ML Syringe FLUSH PRN (21:24)
[2019-12-25] MEDS ORDERED: Sodium Chloride 0.9% 1,000 ML IV ONE (21:25)
--- NOTE | 2019-12-25 21:39 | EDM.PDOC ---
ED HPI GENERAL MEDICAL PROBLEM - General Chief Complaint: Gastrointestinal Problem Stated Complaint: GASTRO PROBLEMS, VOMITTING, CONSTIPATION Time Seen by Provider: 12/25/19 21:18 - History of Present Illness INITIAL COMMENTS - FREE TEXT/NARRATIVE: History of present illness: Reports abdominal pain, distention, constipation, and anorexia and nausea. She feels like she cannot eat. Twice in the past this is happened and she waited until she was vomiting. She had small bowel obstruction secondary to adhesions from multiple abdominal surgeries. Both time she responded without additional surgery being needed. The last was 24 December 2018 and she stayed 2 nights with an NG tube and hydration. Since pain is a pressure pain with distention and bloating. It is moderately severe and constant. Has no signs of sepsis. Review of systems: As per history of present illness and below otherwise all systems reviewed and negative. Past medical history: As per history of present illness and as reviewed below otherwise no ncontributory. Surgical history: As per history of present illness and as reviewed below otherwise noncontributory. Social history: No reported history of drug or alcohol abuse. Family history: As per history of present illness and as reviewed below otherwise noncontributory. Physical exam: Constitutional - well developed, well-nourished and in no acute distress HEENT - normocephalic, no evidence of trauma - external nose and mouth normal - no mass in neck and no JVD - mucosae moist EYES - full EOM, PERRL, no icterus - no evidence of inflammation, injection, or drainage Respiratory - no respiratory distress, equal bilateral expansion, lungs clear to auscultation and no abnormal lung sounds Cardiovascular - Regular Rhythm with S1 and S2 appreciated and no murmur, gallop or rub. GI - abdomen soft and distended or organomegaly - normal bowel sounds - no guard or rebound Musculoskeletal no gross deformity of long bones or joints - no tenderness, swelling or edema Neurologic - Alert and oriented times four - CN II-XII grossly intact - motor sensory and coordination symmetrically normal Psychiatric - appropriate mood and affect with normal thought content Hematologic - No petechiae or purpura - mucosa appropriate color and sclera not pale - normal nail bed color and refill Integument - no rash or evidence of trauma - normal turgor Diagnostics: Therapeutics: [] Impression: [] Plan: [] Definitive disposition and diagnosis as appropriate pending reevaluation and review of above. Bilateral Upper Abdomen Pain Score (Numeric/FACES): 9 - Related Data Allergies Allergy/AdvReac Type Severity Reaction Status Date / Time cefoxitin [From Mefoxin] Allergy Anaphylactic Verified 12/25/19 21:19 Shock Home Meds: Home Meds Amitriptyline HCl 10 mg PO BEDTIME 11/07/17 [History] DULoxetine HCl [Cymbalta] 60 mg PO DAILY 11/07/17 [History] Furosemide 20 mg PO QAM 11/07/17 [History] Simvastatin [Zocor] 40 mg PO BEDTIME 11/07/17 [History] hydroCHLOROthiazide [Hydrochlorothiazide] 25 mg PO QAM 11/07/17 [History] metFORMIN HCl [Metformin HCl] 500 mg PO BID 11/07/17 [History] ALPRAZolam [Alprazolam] 0.5 mg PO BEDTIME 12/24/18 [History] Gabapentin [Neurontin] 100 mg PO BID 12/24/18 [History] Losartan [Cozaar] 50 mg PO DAILY 12/24/18 [History] Docusate Sodium [Colace] 100 mg PO BID PRN 12/26/18 [History] Empagliflozin [Jardiance] 1 dose PO DAILY 12/25/19 [History] Past Medical History HEENT History: Reports: Cataract Other HEENT History: wears glasses Cardiovascular History: Reports: High Cholesterol, Hypertension, Other (See Below) Other Cardiovascular History: enlarged left ventricle Respiratory History: Reports: Asthma, COPD, Other (See Below) Other Respiratory History: Valley disease, emphasima Gastrointestinal History: Reports: Other (See Below) Other Gastrointestinal History: gastric bypass Genitourinary History: Reports: Renal Calculus [employer] History: Reports: Endometriosis Musculoskeletal History: Reports: Back Pain, Chronic Other Musculoskeletal History: foot and wrist surgery Neurological History: Reports: Neuropathy, Diabetic Other Neuro History: Fibromyalgia Psychiatric History: Reports: None Endocrine/Metabolic History: Reports: Diabetes, Type II Immunologic History: Reports: None Oncologic (Cancer) History: Reports: None Dermatologic History: Reports: None - Infectious Disease History Infectious Disease History: Reports: Chicken Pox, Measles, Mumps - Past Surgical History GI Surgical History: Reports: Appendectomy, Cholecystectomy Female Surgical History: Reports: Hysterectomy, Salpingo-Oophorectomy Neurological Surgical History: Reports: C-Spine Social & Family History - Family History Family Medical History: No Pertinent Family History HEENT: Reports: None Cardiac: Reports: Heart Failure, Hypertension, [place], Pacemaker Respiratory: Reports: COPD GI: Reports: None OBGYN: Reports: None Musculoskeletal: Reports: Arthritis Psychiatric: Reports: Bipolar, Depression, OCD Endocrine/Metabolic: Reports: None Dermatologic: Reports: Eczema Oncologic: Reports: Lymphoma, Ovarian - Tobacco Use Tobacco Use Status *Q: Never Tobacco User - Caffeine Use Caffeine Use: Reports: Soda - Recreational Drug Use Recreational Drug Use: No ED ROS GENERAL - Review of Systems Review Of Systems: Comprehensive ROS is negative, except as noted in HPI. ED EXAM, GENERAL - Physical Exam Exam: See Below Free Text/Narrative:: My physical exam as in the HPI Course - Vital Signs Text/Narrative:: The patient's x-ray showed air-fluid levels and some distended loops. I discussed with Dr. Berkowitz. With the with the issues of her low potassium, her borderline blood pressure and need for pain medicine, and to decompress her and hopefully avoid surgery. She will be admitted to the hospital. It is expected that she will stay more than at night. Last Recorded V/S: Last Vital Signs Temp 35.8 C L 12/25/19 21:19 Pulse 63 12/25/19 23:00 Resp 18 12/25/19 23:00 BP 109/41 L 12/25/19 23:00 Pulse Ox 98 12/25/19 23:00 - Orders/Labs/Meds Orders: Active Orders 24 hr Category Date Time Status Admission Status [Patient Status] [ADT] Stat ADT 12/25/19 23:08 Active Gastrointestinal Tube Mgmt [RC] ASDIRECTED Care 12/25/19 23:08 Active Abdomen 1V Upright [CR] Stat Exams 12/25/19 23:08 Ordered Chest 1V Frontal [CR] Stat Exams 12/25/19 23:08 Ordered CORONAVIRUS COVID-19 PCR PHL Stat Lab 12/25/19 23:06 Ordered MAGNESIUM [CHEM] Stat Lab 12/25/19 23:06 Ordered Sodium Chloride 0.9% [Saline Flush] Med 12/25/19 21:24 Active 10 ml FLUSH ASDIRECTED PRN Sodium Chloride 0.9% [Saline Flush] Med 12/25/19 21:24 Active 2.5 ml FLUSH ASDIRECTED PRN Sodium Chloride 0.9% with KCl [Normal Saline with 40 Med 12/25/19 23:15 Active mEq KCl] 1,000 ml IV ASDIRECTED Nasogastric Orogastric Tube Insertion [OM.PC] Stat Ot 12/25/19 23:08 Ordered Saline Lock Insert [OM.PC] Stat Ot 12/25/19 21:24 Ordered Medication Orders Potassium Chloride/Sodium Chloride (Normal Saline With 40 Meq Kcl) 1,000 mls @ 250 mls/hr IV ASDIRECTED CLAIRE Sodium Chloride (Saline Flush) 10 ml FLUSH ASDIRECTED PRN PRN Reason: Keep Vein Open Sodium Chloride (Saline Flush) 2.5 ml FLUSH ASDIRECTED PRN PRN Reason: Keep Vein Open Labs: Laboratory Tests 12/25/19 12/25/19 12/25/19 Range/Units 21:35 21:35 21:35 WBC 11.11 H (4.0-11.0) K/uL RBC 4.79 (4.30-5.90) M/uL Hgb 11.0 L (12.0-16.0) g/dL Hct 37.0 (36.0-46.0) % MCV 77.2 L (80.0-98.0) fL MCH 23.0 L (27.0-32.0) pg MCHC 29.7 L (31.0-37.0) g/dL RDW Std Deviation 44.1 (28.0-62.0) fl RDW Coeff of Cynthia 16 H (11.0-15.0) % Plt Count 336 (150-400) K/uL MPV 12.00 (7.40-12.00) fL Neut % (Auto) 67.7 (48.0-80.0) % Lymph % (Auto) 23.9 (16.0-40.0) % Winkler % (Auto) 7.2 (0.0-15.0) % Eos % (Auto) 1.0 (0.0-7.0) % Baso % (Auto) 0.2 (0.0-1.5) % Neut # (Auto) 7.5 H (1.4-5.7) K/uL Lymph # (Auto) 2.7 H (0.6-2.4) K/uL Winkler # (Auto) 0.8 (0.0-0.8) K/uL Eos # (Auto) 0.1 (0.0-0.7) K/uL Baso # (Auto) 0.0 (0.0-0.1) K/uL Nucleated RBC % 0.0 /100WBC Nucleated RBCs # 0 K/uL Sodium 139 (136-145) mmol/L Potassium 3.1 L (3.5-5.1) mmol/L Chloride 100 (98-107) mmol/L Carbon Dioxide 30.9 (21.0-32.0) mmol/L BUN 19 H (7.0-18.0) mg/dL Creatinine 1.2 H (0.6-1.0) mg/dL Est Cr Clr Drug Dosing 46.52 mL/min Estimated GFR (MDRD) 44.9 ml/min Glucose 142 H (74-106) mg/dL Calcium 8.9 (8.5-10.1) mg/dL Total Bilirubin 0.7 (0.2-1.0) mg/dL AST 18 (15-37) IU/L ALT 21 (14-63) IU/L Alkaline Phosphatase 228 H (46-116) U/L Total Protein 7.9 (6.4-8.2) g/dL Albumin 4.0 (3.4-5.0) g/dL Globulin 3.9 (2.6-4.0) g/dL Albumin/Globulin Ratio 1.0 (0.9-1.6) Lipase 57 L (73-393) U/L Urine Color YELLOW Urine Appearance CLEAR Urine pH 5.5 (5.0-8.0) Ur Specific Russell 1.025 (1.001-1.035) Urine Protein NEGATIVE (NEGATIVE) mg/dL Urine Glucose (UA) >=1000 (NEGATIVE) mg/dL Urine Ketones TRACE H (NEGATIVE) mg/dL Urine Occult Blood TRACE-INTACT H (NEGATIVE) Urine Nitrite NEGATIVE (NEGATIVE) Urine Bilirubin NEGATIVE (NEGATIVE) Urine Urobilinogen 0.2 (<2.0) EU/dL Ur Leukocyte Esterase NEGATIVE (NEGATIVE) Urine RBC 1-3 (0-2/HPF) Urine WBC 0-2 (0-5/HPF) Ur Epithelial Cells FEW (NONE-FEW) Urine Bacteria FEW (NEGATIVE) Urine Mucus LIGHT (NONE-MOD) Meds: Medications Generic Name Dose Route Start Last Admin Trade Name Colin PRN Reason Stop Dose Admin Potassium Chloride/Sodium Chloride 1,000 mls @ 250 mls/hr 12/25/19 23:15 Normal Saline With 40 Meq Kcl IV ASDIRECTED CLAIRE Sodium Chloride 10 ml 12/25/19 21:24 Saline Flush FLUSH ASDIRECTED PRN Keep Vein Open Sodium Chloride 2.5 ml 12/25/19 21:24 Saline Flush FLUSH ASDIRECTED PRN Keep Vein Open Discontinued Medications Generic Name Dose Route Start Last Admin Trade Name Freq PRN Reason Stop Dose Admin Fentanyl 50 mcg 12/25/19 23:03 12/25/19 23:12 Fentanyl IVPUSH 12/25/19 23:04 50 mcg ONETIME ONE Administration Hydromorphone HCl 1 mg 12/25/19 22:47 12/25/19 23:06 Dilaudid IVPUSH 12/25/19 22:48 Not Given ONETIME ONE Sodium Chloride 1,000 mls @ 999 mls/hr 12/25/19 21:25 12/25/19 22:06 Normal Saline IV 12/25/19 22:25 999 mls/hr .BOLUS ONE Administration Ondansetron HCl 4 mg 12/25/19 21:59 12/25/19 22:06 Zofran IVPUSH 12/25/19 22:00 4 mg ONETIME ONE Administration Ondansetron HCl Confirm 12/25/19 21:59 12/25/19 22:03 Zofran Administered 12/25/19 22:00 Not Given Dose 4 mg .ROUTE .STK-MED ONE Potassium Chloride 40 meq 12/25/19 22:41 12/25/19 22:56 Klor-Con M20 PO 12/25/19 22:42 40 meq ONETIME ONE Administration Departure - Departure Time of Disposition: 23:17 Disposition: Admitted As Inpatient 64 Condition: Good Clinical Impression: SBO (small bowel obstruction) - Discharge Information Referrals: Farideh DAVIES [Primary Care Provider] - Forms: ED Department Discharge Sepsis Event Note (ED) - Evaluation Sepsis Screening Result: No Definite Risk - Focused Exam Vital Signs: Vital Signs Temp Pulse Resp BP Pulse Ox 12/25/19 23:00 63 18 109/41 L 98 12/25/19 22:10 73 18 111/60 96 12/25/19 21:19 35.8 C L 76 20 117/63 98 - My Orders Last 24 Hours: My Active Orders 12/25/19 21:24 Sodium Chloride 0.9% [Saline Flush] 10 ml FLUSH ASDIRECTED PRN Sodium Chloride 0.9% [Saline Flush] 2.5 ml FLUSH ASDIRECTED PRN Saline Lock Insert [OM.PC] Stat 12/25/19 23:06 CORONAVIRUS COVID-19 PCR PHL Stat MAGNESIUM [CHEM] Stat 12/25/19 23:08 Admission Status [Patient Status] [ADT] Stat Gastrointestinal Tube Mgmt [RC] ASDIRECTED Abdomen 1V Upright [CR] Stat Chest 1V Frontal [CR] Stat Nasogastric Orogastric Tube Insertion [OM.PC] Stat 12/25/19 23:15 Sodium Chloride 0.9% with KCl [Normal Saline with 40 mEq KCl] 1,000 ml IV ASDIRECTED - Assessment/Plan Last 24 Hours: My Active Orders 12/25/19 21:24 Sodium Chloride 0.9% [Saline Flush] 10 ml FLUSH ASDIRECTED PRN Sodium Chloride 0.9% [Saline Flush] 2.5 ml FLUSH ASDIRECTED PRN Saline Lock Insert [OM.PC] Stat 12/25/19 23:06 CORONAVIRUS COVID-19 PCR PHL Stat MAGNESIUM [CHEM] Stat 12/25/19 23:08 Admission Status [Patient Status] [ADT] Stat Gastrointestinal Tube Mgmt [RC] ASDIRECTED Abdomen 1V Upright [CR] Stat Chest 1V Frontal [CR] Stat Nasogastric Orogastric Tube Insertion [OM.PC] Stat 12/25/19 23:15 Sodium Chloride 0.9% with KCl [Normal Saline with 40 mEq KCl] 1,000 ml IV ASDIRECTED
[2019-12-25] MEDS ORDERED: Ondansetron 4 MG/2 ML SDV IVPUSH ONE (21:59)
[2019-12-25] MEDS ORDERED: Ondansetron 4 MG/2 ML SDV ONE (21:59)
[2019-12-25 22:09] LABS: CARBON DIOXIDE,CO2 30.9 mmol/L (21.0-32.0); POTASSIUM,K 3.1 mmol/L (3.5-5.1)
--- NOTE | 2019-12-25 22:21 | CR ---
INDICATION: Recurrent symptoms of small bowel obstruction, vomiting and constipation TECHNIQUE: Chest and Abdominal radiograph 5 view COMPARISON: 09/27/2015 FINDINGS: CHEST: Moderate degradation of image quality noted due to body habitus. Mediastinum: The mediastinum is normal in appearance. The heart silhouette is normal in size and morphology. Lung: Multiple bilateral pulmonary granulomas are present measuring up to 8 mm without change. No sign of pleural effusion seen. No pneumothorax is identified. ABDOMEN: Bowel: There is an air-filled, dilated loop of small bowel in the left abdomen measuring 5 cm. Soft tissue: No evidence of pneumoperitoneum present. No suspicious calcifications noted. Bone: ACDF of the cervical thoracic spine is partially visualized. IMPRESSION: 1. There is an air-filled, dilated loop of small bowel in the left abdomen measuring 5 cm. Clinical correlation and follow-up is recommended to distinguish between a sentinel loop or early small bowel obstruction. Dictated by Estrada Best MD @ 12/25/2019 10:20:27 PM Dictated by: Estrada Best MD @ 12/25/2019 22:20:33 (Electronically Signed)
[2019-12-25] MEDS ORDERED: Potassium Chloride 20 MEQ Tab.ER PO ONE (22:41)
[2019-12-25] MEDS ORDERED: HYDROmorphone 1 MG/ML Syringe IVPUSH ONE (22:47)
[2019-12-25] MEDS ORDERED: fentaNYL 50 MCG/ML SDV IVPUSH ONE (23:03)
[2019-12-25] MEDS ORDERED: Sodium Chloride 0.9% with KCl 1,000 ML IV SCH (23:15)
--- NOTE | 2019-12-26 00:12 | CR ---
INDICATION: CONFIRM NG/OG TUBE PLACEMENT INDICATION: Nasogastric tube placement. COMPARISON: 12/25/2019 abdominal radiographs. FINDINGS/IMPRESSION: Postoperative changes in the left upper quadrant. Interval placement of a nasogastric tube which is coiled just beyond the expected position of the esophagogastric junction, possibly within the gastric pouch of a Red-en-Y gastric bypass. No significant change in gaseous distension of a small bowel segment in the upper abdomen. Incidental calcified granulomas in the lower lungs. Dictated by Alcides Ramos MD @ 12/26/2019 12:10:53 AM Dictated by: Alcides Ramos MD @ 12/26/2019 00:12:22 (Electronically Signed)
[2019-12-26] MEDS ORDERED: Lidocaine 2% Viscous Solution 15 ML Cup ONE (00:49)
--- NOTE | 2019-12-26 01:01 | CR ---
INDICATION: Nasogastric tube reposition TECHNIQUE: Abdominal radiograph 1 view COMPARISON: 12/25/2019 FINDINGS: Bowel: Air-filled dilated small bowel loop in flank is change. The tip of the NG tube has been repositioned, just beyond the GE junction. Surgical staple lines are seen in upper quadrant which may be due to prior gastric surgery gastric bypass. Soft tissue: No evidence of pneumoperitoneum present. No suspicious calcifications noted. Bone: Unremarkable for age. IMPRESSION: 1. The tip of the NG tube has been repositioned, just beyond the GE junction. Given the suspected prior gastric bypass, and the tip may be within the gastric remnant. Dictated by Estrada Best MD @ 12/26/2019 1:00:18 AM Dictated by: Estrada Best MD @ 12/26/2019 01:00:24 (Electronically Signed)
[2019-12-26] MEDS ORDERED: Oxymetazoline 0.05% Nasal Spray 30 ML Bottle NAS ONE (01:09)
[2019-12-26] MEDS ORDERED: Ondansetron 4 MG/2 ML SDV IVPUSH ONE (01:11)
[2019-12-26] MEDS ORDERED: Ondansetron 4 MG/2 ML SDV ONE (01:12)
[2019-12-26] MEDS ORDERED: HYDROmorphone 1 MG/ML Syringe IVPUSH ONE (01:12)
[2019-12-26] MEDS ORDERED: HYDROmorphone 1 MG/ML Syringe ONE (01:12)
[2019-12-26] MEDS ORDERED: fentaNYL 50 MCG/ML SDV IVPUSH PRN (02:54)
[2019-12-26] MEDS ORDERED: 50% Dextrose in Water 50 ML Syringe IV PRN (02:54)
[2019-12-26] MEDS ORDERED: Glucagon,Human Recombinant 1 MG Vial IM PRN (02:54)
[2019-12-26] MEDS ORDERED: Potassium Chloride 40 MEQ in Sodium Chloride 0.9% 480 ML IV ONE (02:54)
[2019-12-26] MEDS ORDERED: Ondansetron 4 MG/2 ML SDV IVPUSH PRN (02:54)
--- NOTE | 2019-12-26 03:03 | CR ---
Indication: Gastric drainage tube replacement Technique: KUB 1 view Comparison: December 26, 2019 at 12:41 a.m. Findings/Impression: : Gastric drainage tube tip terminates at the level of the proximal stomach and will need to be advanced. There is a loop of dilated small bowel in the left abdomen measuring to 5 cm. No free air. Dictated by Aide Rod MD @ Dec 26 2019 2:59AM Signed by Dr. Aide Rod @ Dec 26 2019 3:01AM
[2019-12-26] MEDS ORDERED: Sodium Chloride 0.9% with KCl 1,000 ML IV ONE (03:15)
[2019-12-26 06:25] LABS: CARBON DIOXIDE,CO2 29.3 mmol/L (21.0-32.0); POTASSIUM,K 3.9 mmol/L (3.5-5.1)
[2019-12-26] MEDS: Insulin Aspart 100 Units/ML 3 ML Pen SUBCUT SCH ×3 (07:20→18:39)
[2019-12-26] MEDS ORDERED: fentaNYL 100 MCG/2 ML SDV IVPUSH PRN (08:26)
[2019-12-26] MEDS ORDERED: Sodium Chloride 0.9% with KCl 1,000 ML IV SCH (08:55)
[2019-12-26] MEDS ORDERED: FLU Vacc QV2020-21(65YR UP)/PF 240 MCG/0.7 ML Syringe IM ONE (10:00)
--- NOTE | 2019-12-26 11:58 | CT ---
INDICATION: Small-bowel obstruction COMPARISON: December 24 2018 TECHNIQUE: CT examination of the abdomen and pelvis was performed without intravenous contrast. Thin section axial images were obtained from the lung bases through the pubic symphysis. Oral contrast was not administered. Please note that all CT scans at this facility use dose modulation, iterative reconstruction, and/or weight-based dosing when appropriate to reduce radiation dose to as low as reasonably achievable. FINDINGS: LUNG BASES: Granulomatous calcifications at the lung bases. Heart size normal. The lung bases. Nasogastric tube ending in the stomach. LIVER/BILIARY SYSTEM:The liver is normal in size and configuration given the lack of intravenous contrast. There is no visible focal mass and there is no intra- or extra hepatic biliary ductal dilatation.Incidental granulomatous calcifications. Gallbladder not visible and presumably surgically absent ADRENALS: Normal non-contrast appearance KIDNEYS, URETERS and BLADDER:The kidneys appear normal given lack of intravenous contrast. No visible mass, calculus or hydronephrosis. The ureters and bladder as visualized appear normal. SPLEEN:Granulomatous calcifications PANCREAS: Normal non-contrast appearance. RETROPERITONEUM and MESENTERY: There is no mass, adenopathy or aortic aneurysm. Atherosclerotic vascular calcifications GASTROINTESTINAL SYSTEM: Fecal retention especially rectosigmoid. Diverticulosis. Findings of a gastric bypass. Mildly dilated loops of small bowel especially in the left upper quadrant with normal caliber small bowel more distally. Findings are probably related to an incomplete small bowel obstruction. Of note, the patient had a very similar appearance on the prior study though the findings were more severe at that time PELVIS: No mass, adenopathy or free fluid. OSSEOUS STRUCTURES and ABDOMINAL WALL: There is an age-appropriate appearance of the osseous structures.No significant abdominal wall defect. OTHER: No free fluid or free air. IMPRESSION: 1. Findings likely representing a mid to distal small-bowel obstruction. The distal most small bowel is decompressed. A nasogastric tube ends in the stomach. 2. Other incidental nonacute appearing findings as discussed above. 3. The patient had a similar appearance on the CT of 2019. However, the current findings are less severe. Please note that all CT scans at this facility use dose modulation, iterative reconstruction, and/or weight-based dosing when appropriate to reduce radiation dose to as low as reasonably achievable. Dictated by Denny Barber MD @ Dec 26 2019 11:46AM Signed by Dr. Denny Barber @ Dec 26 2019 11:55AM
--- NOTE | 2019-12-26 12:42 | PCM.HP.2 ---
H&P History of Present Illness - General Date of Service: 12/26/19 Admit Problem/Dx: Admission Diagnosis/Problem Admission Diagnosis/Problem Small bowel obstruction Source of Information: Patient History Limitations: Reports: No Limitations - History of Present Illness Initial Comments - Free Text/Narative: Pt susan is a pleasant 64 y/o female who was admitted overnight. She has a significant PMHx of recurrent small bowel obstructions, as well as HTN, HLD, DMII, COPD, Asthma, gastric bypass, kidney stones, endometriosis, and diabetic neuropathy. She also reports that she has had multiple surgical procedures in the past likely cause for these recurrent small bowel obstruction episodes. Last episode was in December 2018. She was admitted with complaints of abdominal pain , distention, constipation, anorexia and nausea. [place] like she couldn't eat with pain described as pressure with distention and bloating. It was moderately severe and constant 9/10 on the pain scale. At time of admission she did not have any signs of sepsis/ peritonitis/ acute abdomen. E.R course: had CBC, CMP, COVID, Lipase, Abdominal XRay. Was found to have small bowel obstructon. Started on Bolus of fluids, made NPO, given 40meq potassium. given Morphine for pain, and had NG tube placed for decompression with some adjustments and repeat chest Xrays required. Overnight, patient states she slept well since admission, pain is being well controlled. This morning she is tolerating the NG tube well and having sips of water for dry mouth. Denies any fever, chills, abdominal discomfort. All questions and concerns were addressed at bedside. Bilateral Upper Abdomen Pain Score (Numeric/FACES): 6 - Related Data Allergies/Adverse Reactions: Allergies Allergy/AdvReac Type Severity Reaction Status Date / Time cefoxitin [From Mefoxin] Allergy Anaphylactic Verified 12/26/19 08:56 Shock Home Medications: Home Meds Amitriptyline HCl 10 mg PO BEDTIME 11/07/17 [History] DULoxetine HCl [Cymbalta] 60 mg PO DAILY 11/07/17 [History] Furosemide 20 mg PO QAM 11/07/17 [History] Simvastatin [Zocor] 40 mg PO BEDTIME 11/07/17 [History] hydroCHLOROthiazide [Hydrochlorothiazide] 25 mg PO QAM 11/07/17 [History] metFORMIN HCl [Metformin HCl] 500 mg PO BID 11/07/17 [History] ALPRAZolam [Alprazolam] 0.5 mg PO BEDTIME 12/24/18 [History] Gabapentin [Neurontin] 100 mg PO BID 12/24/18 [History] Losartan [Cozaar] 50 mg PO DAILY 12/24/18 [History] Docusate Sodium [Colace] 100 mg PO BID PRN 12/26/18 [History] Empagliflozin [Jardiance] 1 dose PO DAILY 12/25/19 [History] Past Medical History HEENT History: Reports: Cataract Other HEENT History: wears glasses Cardiovascular History: Reports: High Cholesterol, Hypertension, Other (See Below) Other Cardiovascular History: enlarged left ventricle Respiratory History: Reports: Asthma, COPD, Other (See Below) Other Respiratory History: Valley disease, emphasima Gastrointestinal History: Reports: Other (See Below) Other Gastrointestinal History: gastric bypass Genitourinary History: Reports: Renal Calculus [employer] SAL[employer] History: Reports: Endometriosis Musculoskeletal History: Reports: Back Pain, Chronic Other Musculoskeletal History: foot and wrist surgery Neurological History: Reports: Neuropathy, Diabetic Other Neuro History: Fibromyalgia Psychiatric History: Reports: None Endocrine/Metabolic History: Reports: Diabetes, Type II Immunologic History: Reports: None Oncologic (Cancer) History: Reports: None Dermatologic History: Reports: None - Infectious Disease History Infectious Disease History: Reports: Chicken Pox, Measles, Mumps - Past Surgical History GI Surgical History: Reports: Appendectomy, Cholecystectomy Female Surgical History: Reports: Hysterectomy, Salpingo-Oophorectomy Neurological Surgical History: Reports: C-Spine Social & Family History - Family History Family Medical History: No Pertinent Family History HEENT: Reports: None Cardiac: Reports: Heart Failure, Hypertension, PR, Pacemaker Respiratory: Reports: COPD GI: Reports: None OBGYN: Reports: None Musculoskeletal: Reports: Arthritis Psychiatric: Reports: Bipolar, Depression, OCD Endocrine/Metabolic: Reports: None Dermatologic: Reports: Eczema Oncologic: Reports: Lymphoma, Ovarian - Tobacco Use Tobacco Use Status *Q: Never Tobacco User Second Hand Smoke Exposure: No - Caffeine Use Caffeine Use: Reports: Soda - Recreational Drug Use Recreational Drug Use: No H&P Review of Systems - Review of Systems: Review Of Systems: See Below General: Reports: No Symptoms HEENT: Reports: No Symptoms Pulmonary: Reports: No Symptoms Cardiovascular: Reports: No Symptoms Gastrointestinal: Reports: Abdominal Pain (well controlled with medication ), Decreased Appetite. Denies: Flatus, Nausea, Vomiting Genitourinary: Reports: No Symptoms Musculoskeletal: Reports: No Symptoms Skin: Reports: No Symptoms Psychiatric: Reports: No Symptoms Neurological: Reports: No Symptoms Hematologic/Lymphatic: Reports: No Symptoms Immunologic: Reports: No Symptoms Exam - Exam Exam: See Below - Vital Signs Vital Signs: Last Vital Signs Temp 97.6 F 12/26/19 11:50 Pulse 69 12/26/19 11:50 Resp 16 12/26/19 11:50 BP 122/42 L 12/26/19 11:50 Pulse Ox 94 L 12/26/19 11:50 Weight: 190 lb 0.615 oz - Exam General: Alert, Oriented, Cooperative HEENT: Conjunctiva Clear, EOMI, Mucosa Moist & [place], PERRLA Neck: Supple, Trachea Midline Lungs: Clear to Auscultation, Normal Respiratory Effort, Wheezing Cardiovascular: Regular Rate, Regular Rhythm, Normal S1 GI/Abdominal Exam: Normal Bowel Sounds, Soft, Non-Tender. No: No Abnormal Bruit, No Mass, Guarding, Rigid, Rebound Extremities: Normal Inspection, Normal Range of Motion, No Pedal Edema, Normal Capillary Refill Peripheral Pulses: 2+: Radial (L), Radial (R), Dorsalis Pedis (L), Dorsalis Pedis (R) Skin: Warm, Dry, Intact Neurological: Cranial Nerves Intact, Reflexes Equal Bilateral Neuro Extensive - Mental Status: Alert, Oriented x3, Normal Mood/Affect, Normal Cognition, Memory Intact Neuro Extensive - Motor, Sensory, Reflexes: CN II-XII Intact, Normal Gait, Normal Reflexes Psychiatric: Alert, Normal Affect, Normal Mood - Patient Data Lab Results Last 24 hrs: Laboratory Results - last 24 hr 12/25/19 12/25/19 12/25/19 Range/Units 21:35 21:35 21:35 WBC 11.11 H (4.0-11.0) K/uL RBC 4.79 (4.30-5.90) M/uL Hgb 11.0 L (12.0-16.0) g/dL Hct 37.0 (36.0-46.0) % MCV 77.2 L (80.0-98.0) fL MCH 23.0 L (27.0-32.0) pg MCHC 29.7 L (31.0-37.0) g/dL RDW Std Deviation 44.1 (28.0-62.0) fl RDW Coeff of Cynthia 16 H (11.0-15.0) % Plt Count 336 (150-400) K/uL MPV 12.00 (7.40-12.00) fL Neut % (Auto) 67.7 (48.0-80.0) % Lymph % (Auto) 23.9 (16.0-40.0) % [place] % (Auto) 7.2 (0.0-15.0) % Eos % (Auto) 1.0 (0.0-7.0) % Baso % (Auto) 0.2 (0.0-1.5) % Neut # (Auto) 7.5 H (1.4-5.7) K/uL Lymph # (Auto) 2.7 H (0.6-2.4) K/uL [place] # (Auto) 0.8 (0.0-0.8) K/uL Eos # (Auto) 0.1 (0.0-0.7) K/uL Baso # (Auto) 0.0 (0.0-0.1) K/uL Nucleated RBC % 0.0 /100WBC Nucleated RBCs # 0 K/uL Sodium 139 (136-145) mmol/L Potassium 3.1 L (3.5-5.1) mmol/L Chloride 100 (98-107) mmol/L Carbon Dioxide 30.9 (21.0-32.0) mmol/L BUN 19 H (7.0-18.0) mg/dL Creatinine 1.2 H (0.6-1.0) mg/dL Est Cr Clr Drug Dosing 46.52 mL/min Estimated GFR (MDRD) 44.9 ml/min Glucose 142 H (74-106) mg/dL POC Glucose (60-110) mg/dL Calcium 8.9 (8.5-10.1) mg/dL Magnesium (1.8-2.4) mg/dL Total Bilirubin 0.7 (0.2-1.0) mg/dL AST 18 (15-37) IU/L ALT 21 (14-63) IU/L Alkaline Phosphatase 228 H (46-116) U/L Total Protein 7.9 (6.4-8.2) g/dL Albumin 4.0 (3.4-5.0) g/dL Globulin 3.9 (2.6-4.0) g/dL Albumin/Globulin Ratio 1.0 (0.9-1.6) Lipase 57 L (73-393) U/L Urine Color YELLOW Urine Appearance CLEAR Urine pH 5.5 (5.0-8.0) Ur Specific [place] 1.025 (1.001-1.035) Urine Protein NEGATIVE (NEGATIVE) mg/dL Urine Glucose (UA) >=1000 (NEGATIVE) mg/dL Urine Ketones TRACE H (NEGATIVE) mg/dL Urine Occult Blood TRACE-INTACT H (NEGATIVE) Urine Nitrite NEGATIVE (NEGATIVE) Urine Bilirubin NEGATIVE (NEGATIVE) Urine Urobilinogen 0.2 (<2.0) EU/dL Ur Leukocyte Esterase NEGATIVE (NEGATIVE) Urine RBC 1-3 (0-2/HPF) Urine WBC 0-2 (0-5/HPF) Ur Epithelial Cells FEW (NONE-FEW) Urine Bacteria FEW (NEGATIVE) Urine Mucus LIGHT (NONE-MOD) SARS-CoV-2 RNA (MARCO) (NEGATIVE) 12/25/19 12/25/19 12/26/19 Range/Units 21:35 23:15 05:15 WBC 10.69 (4.0-11.0) K/uL RBC 3.99 L (4.30-5.90) M/uL Hgb 9.2 L (12.0-16.0) g/dL Hct 31.2 L (36.0-46.0) % MCV 78.2 L (80.0-98.0) fL MCH 23.1 L (27.0-32.0) pg MCHC 29.5 L (31.0-37.0) g/dL RDW Std Deviation 44.8 (28.0-62.0) fl RDW Coeff of Cynthia 16 H (11.0-15.0) % Plt Count 275 (150-400) K/uL MPV 12.50 H (7.40-12.00) fL Neut % (Auto) 77.3 (48.0-80.0) % Lymph % (Auto) 15.4 L (16.0-40.0) % [place] % (Auto) 6.7 (0.0-15.0) % Eos % (Auto) 0.4 (0.0-7.0) % Baso % (Auto) 0.2 (0.0-1.5) % Neut # (Auto) 8.3 H (1.4-5.7) K/uL Lymph # (Auto) 1.7 (0.6-2.4) K/uL [place] # (Auto) 0.7 (0.0-0.8) K/uL Eos # (Auto) 0.0 (0.0-0.7) K/uL Baso # (Auto) 0.0 (0.0-0.1) K/uL Nucleated RBC % 0.0 /100WBC Nucleated RBCs # 0 K/uL Sodium (136-145) mmol/L Potassium (3.5-5.1) mmol/L Chloride (98-107) mmol/L Carbon Dioxide (21.0-32.0) mmol/L BUN (7.0-18.0) mg/dL Creatinine (0.6-1.0) mg/dL Est Cr Clr Drug Dosing mL/min Estimated GFR (MDRD) ml/min Glucose (74-106) mg/dL POC Glucose (60-110) mg/dL Calcium (8.5-10.1) mg/dL Magnesium 2.5 H (1.8-2.4) mg/dL Total Bilirubin (0.2-1.0) mg/dL AST (15-37) IU/L ALT (14-63) IU/L Alkaline Phosphatase (46-116) U/L Total Protein (6.4-8.2) g/dL Albumin (3.4-5.0) g/dL Globulin (2.6-4.0) g/dL Albumin/Globulin Ratio (0.9-1.6) Lipase (73-393) U/L Urine Color Urine Appearance Urine pH (5.0-8.0) Ur Specific [place] (1.001-1.035) Urine Protein (NEGATIVE) mg/dL Urine Glucose (UA) (NEGATIVE) mg/dL Urine Ketones (NEGATIVE) mg/dL Urine Occult Blood (NEGATIVE) Urine Nitrite (NEGATIVE) Urine Bilirubin (NEGATIVE) Urine Urobilinogen (<2.0) EU/dL Ur Leukocyte Esterase (NEGATIVE) Urine RBC (0-2/HPF) Urine WBC (0-5/HPF) Ur Epithelial Cells (NONE-FEW) Urine Bacteria (NEGATIVE) Urine Mucus (NONE-MOD) SARS-CoV-2 RNA (MARCO) NEGATIVE (NEGATIVE) 12/26/19 12/26/19 12/26/19 Range/Units 05:15 07:09 11:48 WBC (4.0-11.0) K/uL RBC (4.30-5.90) M/uL Hgb (12.0-16.0) g/dL Hct (36.0-46.0) % MCV (80.0-98.0) fL MCH (27.0-32.0) pg MCHC (31.0-37.0) g/dL RDW Std Deviation (28.0-62.0) fl RDW Coeff of Cynthia (11.0-15.0) % Plt Count (150-400) K/uL MPV (7.40-12.00) fL Neut % (Auto) (48.0-80.0) % Lymph % (Auto) (16.0-40.0) % [place] % (Auto) (0.0-15.0) % Eos % (Auto) (0.0-7.0) % Baso % (Auto) (0.0-1.5) % Neut # (Auto) (1.4-5.7) K/uL Lymph # (Auto) (0.6-2.4) K/uL [place] # (Auto) (0.0-0.8) K/uL Eos # (Auto) (0.0-0.7) K/uL Baso # (Auto) (0.0-0.1) K/uL Nucleated RBC % /100WBC Nucleated RBCs # K/uL Sodium 143 (136-145) mmol/L Potassium 3.9 (3.5-5.1) mmol/L Chloride 107 (98-107) mmol/L Carbon Dioxide 29.3 (21.0-32.0) mmol/L BUN 19 H (7.0-18.0) mg/dL Creatinine 1.1 H (0.6-1.0) mg/dL Est Cr Clr Drug Dosing 50.75 mL/min Estimated GFR (MDRD) 49.7 ml/min Glucose 123 H (74-106) mg/dL POC Glucose 112 H 103 (60-110) mg/dL Calcium 7.7 L (8.5-10.1) mg/dL Magnesium (1.8-2.4) mg/dL Total Bilirubin 0.6 (0.2-1.0) mg/dL AST 15 (15-37) IU/L ALT 18 (14-63) IU/L Alkaline Phosphatase 181 H (46-116) U/L Total Protein 6.4 (6.4-8.2) g/dL Albumin 3.2 L (3.4-5.0) g/dL Globulin 3.2 (2.6-4.0) g/dL Albumin/Globulin Ratio 1.0 (0.9-1.6) Lipase (73-393) U/L Urine Color Urine Appearance Urine pH (5.0-8.0) Ur Specific [place] (1.001-1.035) Urine Protein (NEGATIVE) mg/dL Urine Glucose (UA) (NEGATIVE) mg/dL Urine Ketones (NEGATIVE) mg/dL Urine Occult Blood (NEGATIVE) Urine Nitrite (NEGATIVE) Urine Bilirubin (NEGATIVE) Urine Urobilinogen (<2.0) EU/dL Ur Leukocyte Esterase (NEGATIVE) Urine RBC (0-2/HPF) Urine WBC (0-5/HPF) Ur Epithelial Cells (NONE-FEW) Urine Bacteria (NEGATIVE) Urine Mucus (NONE-MOD) SARS-CoV-2 RNA (MARCO) (NEGATIVE) Result Diagrams: 12/26/19 05:15 12/26/19 05:15 Sepsis Event Note - Evaluation Sepsis Screening Result: No Definite Risk - Focused Exam Vital Signs: Vital Signs Temp Pulse Resp BP Pulse Ox 12/26/19 11:50 97.6 F 69 16 122/42 L 94 L 12/26/19 08:08 97.8 F 65 16 108/45 L 95 12/26/19 01:45 98.2 F 74 16 135/56 L 95 12/26/19 01:12 88 18 168/74 H 97 - Problem List (1) SBO (small bowel obstruction) SNOMED Code(s): 951940792 ICD Code: K56.609 - UNSP INTESTNL OBST, UNSP TO PARTIAL VERSUS COMPLETE O BST Status: Acute Current Visit: Yes (2) Diabetes mellitus, type II SNOMED Code(s): 24477584 ICD Code: E11.9 - TYPE 2 DIABETES MELLITUS WITHOUT COMPLICATIONS Status: Chronic Current Visit: No Qualifiers: Diabetes mellitus complication status: without complication Problem List Initiated/Reviewed/Updated: Yes Orders Last 24hrs: Active Orders 24 hr Category Date Time Status Admission Status [Patient Status] [ADT] Stat ADT 12/25/19 23:08 Active Blood Glucose Check, Bedside [] Q6HR Care 12/26/19 06:00 Active Gastrointestinal Tube Mgmt [] ASDIRECTED Care 12/25/19 23:08 Active Influenza Vaccine Charge [] .DISCHARGE Care 12/26/19 05:51 Active Up ad Carly [] ASDIRECTED Care 12/26/19 02:54 Active Vital Signs [] Q4H Care 12/26/19 02:54 Active Nothing Per Oral Diet [DIET] Diet 12/26/19 Breakfast Active Dextrose 50% in Water Med 12/26/19 02:54 Active 50 ml IV ASDIRECTED PRN Glucagon,Human Recombinant [GlucaGen] Med 12/26/19 02:54 Active 1 mg IM ASDIRECTED PRN Insulin Aspart [NovoLOG] Med 12/26/19 06:00 Active See Protocol SUBCUT Q6H Ondansetron [Zofran] Med 12/26/19 02:54 Active 4 mg IVPUSH Q4H PRN Sodium Chloride 0.9% [Normal Saline] 1,000 ml Med 12/26/19 11:45 Active IV ASDIRECTED Sodium Chloride 0.9% [Saline Flush] Med 12/25/19 21:24 Active 10 ml FLUSH ASDIRECTED PRN Sodium Chloride 0.9% [Saline Flush] Med 12/25/19 21:24 Active 2.5 ml FLUSH ASDIRECTED PRN fentaNYL [Sublimaze] Med 12/26/19 08:26 Active 25 mcg IVPUSH Q3H PRN Nasogastric Orogastric Tube Insertion [OM.PC] Stat Oth 12/25/19 23:08 Ordered Saline Lock Insert [OM.PC] Stat Oth 12/25/19 21:24 Ordered Medication Orders Dextrose/Water (Dextrose 50% In Water) 50 ml IV ASDIRECTED PRN PRN Reason: Hypoglycemia Fentanyl (Sublimaze) 25 mcg IVPUSH Q3H PRN PRN Reason: Pain Last Admin: 12/26/19 09:00 Dose: 25 mcg Documented by: JOSE RAMON Glucagon (Glucagen) 1 mg IM ASDIRECTED PRN PRN Reason: Hypoglycemia Sodium Chloride (Normal Saline) 1,000 mls @ 125 mls/hr IV ASDIRECTED [facility] Insulin Aspart (Novolog) 0 unit SUBCUT Q6H [facility]; Protocol Last Admin: 12/26/19 07:20 Dose: Not Given Documented by: TRELL Ondansetron HCl (Zofran) 4 mg IVPUSH Q4H PRN PRN Reason: Nausea Sodium Chloride (Saline Flush) 10 ml FLUSH ASDIRECTED PRN PRN Reason: Keep Vein Open Sodium Chloride (Saline Flush) 2.5 ml FLUSH ASDIRECTED PRN PRN Reason: Keep Vein Open Assessment/Plan Comment:: Pt is a 64 y/o F admitted for reccurent small bowel obstruction. 1. Small bowel obstruction: -NPO/ bowel rest, only sips an chips. -NG-tube in place for decompression -Morphine for pain -Zofran for nausea -electrolytes have been repleted, potassium was 3.9. D/C K rider -Hydration via NS 1L at 125 maintenance -Daily Serial Abdominal XR -CT abdomen showed small bowel obstruction, with distal bowel has been decompressed. 2. DMII: on low dose SSI 3.PMHx of HTN, HLD, COPD, Diabetic neuropathy: -continue home dose medications
[2019-12-26] MEDS: Sodium Chloride 0.9% 1,000 ML IV SCH ×2 (13:07→22:06)
[2019-12-26] MEDS ORDERED: Docusate Sodium 100 MG Cap PO PRN (13:08)
[2019-12-26] MEDS ORDERED: Simvastatin 40 MG Tab PO SCH (21:00)
[2019-12-26] MEDS ORDERED: Amitriptyline 10 MG Tab PO SCH (21:00)
[2019-12-26] MEDS ORDERED: ALPRAZolam 0.5 MG Tab PO SCH (21:00)
[2019-12-26] MEDS: Gabapentin 100 MG Cap PO SCH (22:07)
[2019-12-27] MEDS: Sodium Chloride 0.9% 1,000 ML IV SCH (06:30)
[2019-12-27 06:37] LABS: BLOOD UREA NITROGEN,BUN 15 mg/dL (7.0-18.0); CARBON DIOXIDE,CO2 26.4 mmol/L (21.0-32.0); CHLORIDE,CL 110 mmol/L (98-107); GLUCOSE RANDOM 108 mg/dL (74-106); POTASSIUM,K 4.3 mmol/L (3.5-5.1); SODIUM,NA 142 mmol/L (136-145)
[2019-12-27] MEDS: Insulin Aspart 100 Units/ML 3 ML Pen SUBCUT SCH ×2 (08:15)
[2019-12-27] MEDS: Gabapentin 100 MG Cap PO SCH (08:45)
[2019-12-27] MEDS ORDERED: Furosemide 20 MG Tab PO SCH (09:00)
[2019-12-27] MEDS ORDERED: DULoxetine 60 MG Cap PO SCH (09:00)
[2019-12-27] MEDS ORDERED: Hydrochlorothiazide 25 MG Tab PO SCH (09:00)
[2019-12-27] MEDS ORDERED: Losartan 50 MG Tab PO SCH (09:00)
[2019-12-27] MEDS ORDERED: Acetaminophen 325 MG Tab PO PRN (09:24)
--- NOTE | 2019-12-27 09:43 | PCM.PN ---
- General Info Date of Service: 12/27/19 Subjective Update: Reports having 3 bowel movements yesterday. Tolerated clear liquid diet last night. Reports mild abdominal pain but much improved. No nausea or vomiting. - Patient Data Vitals - Most Recent: Last Vital Signs Temp 35.3 C L 12/27/19 08:00 Pulse 63 12/27/19 08:00 Resp 15 12/27/19 08:00 BP 111/45 L 12/27/19 08:50 Pulse Ox 95 12/27/19 08:00 Weight - Most Recent: 86.2 kg I&O - Last 24 Hours: Intake & Output 12/26/19 12/27/19 12/27/19 22:59 06:59 14:59 Intake Total 1230 740 Output Total 550 700 Balance 680 40 Lab Results Last 24 Hours: Laboratory Results - last 24 hr 12/26/19 12/26/19 12/26/19 Range/Units 07:09 11:48 18:14 WBC (4.0-11.0) K/uL RBC (4.30-5.90) M/uL Hgb (12.0-16.0) g/dL Hct (36.0-46.0) % MCV (80.0-98.0) fL MCH (27.0-32.0) pg MCHC (31.0-37.0) g/dL RDW Std Deviation (28.0-62.0) fl RDW Coeff of Cynthia (11.0-15.0) % Plt Count (150-400) K/uL MPV (7.40-12.00) fL Neut % (Auto) (48.0-80.0) % Lymph % (Auto) (16.0-40.0) % Swift % (Auto) (0.0-15.0) % Eos % (Auto) (0.0-7.0) % Baso % (Auto) (0.0-1.5) % Neut # (Auto) (1.4-5.7) K/uL Lymph # (Auto) (0.6-2.4) K/uL Swift # (Auto) (0.0-0.8) K/uL Eos # (Auto) (0.0-0.7) K/uL Baso # (Auto) (0.0-0.1) K/uL Nucleated RBC % /100WBC Nucleated RBCs # K/uL Sodium (136-145) mmol/L Potassium (3.5-5.1) mmol/L Chloride (98-107) mmol/L Carbon Dioxide (21.0-32.0) mmol/L BUN (7.0-18.0) mg/dL Creatinine (0.6-1.0) mg/dL Est Cr Clr Drug Dosing mL/min Estimated GFR (MDRD) ml/min Glucose (74-106) mg/dL POC Glucose 112 H 103 92 (60-110) mg/dL Calcium (8.5-10.1) mg/dL 12/27/19 12/27/19 12/27/19 Range/Units 01:14 05:40 05:40 WBC 5.67 (4.0-11.0) K/uL RBC 3.64 L (4.30-5.90) M/uL Hgb 8.5 L (12.0-16.0) g/dL Hct 28.6 L (36.0-46.0) % MCV 78.6 L (80.0-98.0) fL MCH 23.4 L (27.0-32.0) pg MCHC 29.7 L (31.0-37.0) g/dL RDW Std Deviation 46.3 (28.0-62.0) fl RDW Coeff of Cynthia 16 H (11.0-15.0) % Plt Count 235 (150-400) K/uL MPV 12.20 H (7.40-12.00) fL Neut % (Auto) 49.8 (48.0-80.0) % Lymph % (Auto) 37.7 (16.0-40.0) % Swift % (Auto) 9.7 (0.0-15.0) % Eos % (Auto) 2.6 (0.0-7.0) % Baso % (Auto) 0.2 (0.0-1.5) % Neut # (Auto) 2.8 (1.4-5.7) K/uL Lymph # (Auto) 2.1 (0.6-2.4) K/uL Swift # (Auto) 0.6 (0.0-0.8) K/uL Eos # (Auto) 0.2 (0.0-0.7) K/uL Baso # (Auto) 0.0 (0.0-0.1) K/uL Nucleated RBC % 0.0 /100WBC Nucleated RBCs # 0 K/uL Sodium 142 (136-145) mmol/L Potassium 4.3 (3.5-5.1) mmol/L Chloride 110 H (98-107) mmol/L Carbon Dioxide 26.4 (21.0-32.0) mmol/L BUN 15 (7.0-18.0) mg/dL Creatinine 0.9 (0.6-1.0) mg/dL Est Cr Clr Drug Dosing 62.03 mL/min Estimated GFR (MDRD) > 60.0 ml/min Glucose 108 H (74-106) mg/dL POC Glucose 94 (60-110) mg/dL Calcium 7.7 L (8.5-10.1) mg/dL 12/27/19 Range/Units 06:30 WBC (4.0-11.0) K/uL RBC (4.30-5.90) M/uL Hgb (12.0-16.0) g/dL Hct (36.0-46.0) % MCV (80.0-98.0) fL MCH (27.0-32.0) pg MCHC (31.0-37.0) g/dL RDW Std Deviation (28.0-62.0) fl RDW Coeff of Cynthia (11.0-15.0) % Plt Count (150-400) K/uL MPV (7.40-12.00) fL Neut % (Auto) (48.0-80.0) % Lymph % (Auto) (16.0-40.0) % Swift % (Auto) (0.0-15.0) % Eos % (Auto) (0.0-7.0) % Baso % (Auto) (0.0-1.5) % Neut # (Auto) (1.4-5.7) K/uL Lymph # (Auto) (0.6-2.4) K/uL Swift # (Auto) (0.0-0.8) K/uL Eos # (Auto) (0.0-0.7) K/uL Baso # (Auto) (0.0-0.1) K/uL Nucleated RBC % /100WBC Nucleated RBCs # K/uL Sodium (136-145) mmol/L Potassium (3.5-5.1) mmol/L Chloride (98-107) mmol/L Carbon Dioxide (21.0-32.0) mmol/L BUN (7.0-18.0) mg/dL Creatinine (0.6-1.0) mg/dL Est Cr Clr Drug Dosing mL/min Estimated GFR (MDRD) ml/min Glucose (74-106) mg/dL POC Glucose 125 H (60-110) mg/dL Calcium (8.5-10.1) mg/dL Med Orders - Current: Current Medications Acetaminophen (Tylenol) 650 mg PO Q4H PRN PRN Reason: Pain Alprazolam (Xanax) 0.5 mg PO BEDTIME [facility] Last Admin: 12/26/19 22:08 Dose: 0.5 mg Documented by: Amitriptyline HCl (Elavil) 10 mg PO BEDTIME [facility] Last Admin: 12/26/19 22:07 Dose: 10 mg Documented by: Dextrose/Water (Dextrose 50% In Water) 50 ml IV ASDIRECTED PRN PRN Reason: Hypoglycemia Docusate Sodium (Colace) 100 mg PO BID PRN PRN Reason: Constipation Duloxetine HCl (Cymbalta) 60 mg PO DAILY [facility] Last Admin: 12/27/19 08:44 Dose: 60 mg Documented by: Fentanyl (Sublimaze) 25 mcg IVPUSH Q3H PRN PRN Reason: Pain Last Admin: 12/26/19 09:00 Dose: 25 mcg Documented by: [facility] [place] Last Admin: 12/27/19 08:44 Dose: 20 mg Documented by: Gabapentin (Neurontin) 100 mg PO BID [facility] Last Admin: 12/27/19 08:45 Dose: 100 mg Documented by: Glucagon (Glucagen) 1 mg IM ASDIRECTED PRN PRN Reason: Hypoglycemia Hydrochlorothiazide (Hydrochlorothiazide) 25 mg PO QAM [facility] Last Admin: 12/27/19 08:48 Dose: 25 mg Documented by: Sodium Chloride (Normal Saline) 1,000 mls @ 125 mls/hr IV ASDIRECTED [facility] Last Admin: 12/27/19 06:30 Dose: 125 mls/hr Documented by: Influenza Virus Vaccine (Fluzone High-Dose Quad 2020-21) 240 mcg IM .ONCE ONE Stop: 12/27/19 10:01 Insulin Aspart (Novolog) 0 unit SUBCUT Q6H [facility]; Protocol Last Admin: 12/27/19 08:15 Dose: Not Given Documented by: Losartan Potassium (Cozaar) 50 mg PO DAILY [facility] Last Admin: 12/27/19 08:50 Dose: Not Given Documented by: Ondansetron HCl (Zofran) 4 mg IVPUSH Q4H PRN PRN Reason: Nausea Simvastatin (Zocor) 40 mg PO BEDTIME [facility] Last Admin: 12/26/19 22:08 Dose: 40 mg Documented by: Sodium Chloride (Saline Flush) 10 ml FLUSH ASDIRECTED PRN PRN Reason: Keep Vein Open Sodium Chloride (Saline Flush) 2.5 ml FLUSH ASDIRECTED PRN PRN Reason: Keep Vein Open Discontinued Medications Fentanyl (Fentanyl) 50 mcg IVPUSH ONETIME ONE Stop: 12/25/19 23:04 Last Admin: 12/25/19 23:12 Dose: 50 mcg Documented by: Fentanyl (Fentanyl) 25 mcg IVPUSH Q3H PRN PRN Reason: Pain Hydromorphone HCl (Dilaudid) 1 mg IVPUSH ONETIME ONE Stop: 12/25/19 22:48 Last Admin: 12/25/19 23:06 Dose: Not Given Documented by: Hydromorphone HCl (Dilaudid) 1 mg IVPUSH ONETIME ONE Stop: 12/26/19 01:13 Last Admin: 12/26/19 01:19 Dose: 1 mg Documented by: Hydromorphone HCl (Dilaudid) Confirm Administered Dose 1 mg .ROUTE .STK-MED ONE Stop: 12/26/19 01:13 Last Admin: 12/26/19 01:22 Dose: Not Given Documented by: Sodium Chloride (Normal Saline) 1,000 mls @ 999 mls/hr IV .BOLUS ONE Stop: 12/25/19 22:25 Last Admin: 12/25/19 22:06 Dose: 999 mls/hr Documented by: Potassium Chloride/Sodium Chloride (Normal Saline With 40 Meq Kcl) 1,000 mls @ 250 mls/hr IV ASDIRECTED [facility] Last Admin: 12/25/19 23:59 Dose: 250 mls/hr Documented by: Potassium Chloride 40 meq/ (Sodium Chloride) 500 mls @ 125 mls/hr IV ONETIME ONE Stop: 12/26/19 06:53 Last Admin: 12/26/19 14:12 Dose: Not Given Documented by: Potassium Chloride/Sodium Chloride (Normal Saline With 40 Meq Kcl) 1,000 mls @ 125 mls/hr IV NOW ONE Stop: 12/26/19 11:14 Last Admin: 12/26/19 03:15 Dose: 125 mls/hr Documented by: Potassium Chloride/Sodium Chloride (Normal Saline With 40 Meq Kcl) 1,000 mls @ 125 mls/hr IV ASDIRECTED [facility] Last Admin: 12/26/19 11:06 Dose: 125 mls/hr Documented by: Influenza Virus Vaccine (Pharmacy To Dose - Influenza Vaccine) 1 each IM ONETIME ONE Stop: 12/26/19 05:52 Lidocaine HCl (Xylocaine 2% Viscous) Confirm Administered Dose 15 ml .ROUTE .STK-MED ONE Stop: 12/26/19 00:50 Last Admin: 12/26/19 01:09 Dose: 15 ml Documented by: Ondansetron HCl (Zofran) 4 mg IVPUSH ONETIME ONE Stop: 12/25/19 22:00 Last Admin: 12/25/19 22:06 Dose: 4 mg Documented by: Ondansetron HCl (Zofran) Confirm Administered Dose 4 mg .ROUTE .STK-MED ONE Stop: 12/25/19 22:00 Last Admin: 12/25/19 22:03 Dose: Not Given Documented by: Ondansetron HCl (Zofran) 4 mg IVPUSH ONETIME ONE Stop: 12/26/19 01:12 Last Admin: 12/26/19 01:19 Dose: 4 mg Documented by: Ondansetron HCl (Zofran) Confirm Administered Dose 4 mg .ROUTE .STK-MED ONE Stop: 12/26/19 01:13 Last Admin: 12/26/19 01:21 Dose: Not Given Documented by: Oxymetazoline HCl (Nasal Decongestant [place]) 2 ml [place] ONETIME ONE Stop: 12/26/19 01:10 Last Admin: 12/26/19 14:11 Dose: Not Given Documented by: Potassium Chloride (Klor-Con M20) 40 meq PO ONETIME ONE Stop: 12/25/19 22:42 Last Admin: 12/25/19 22:56 Dose: 40 meq Documented by: - Exam General: Alert, Oriented, Cooperative, No Acute Distress Lungs: Clear to Auscultation, Normal Respiratory Effort Cardiovascular: Regular Rate, Regular Rhythm GI/Abdominal Exam: Normal Bowel Sounds, Soft, No Distention (mild generalized ttp) Extremities: Normal Inspection, No Pedal Edema Sepsis Event Note - Evaluation Sepsis Screening Result: No Definite Risk - Focused Exam Vital Signs: Vital Signs Temp Pulse Resp BP BP Pulse Ox 12/27/19 08:50 111/45 L 12/27/19 08:00 35.3 C L 63 15 111/33 L 95 12/27/19 04:00 35.9 C L 64 16 106/51 L 95 12/27/19 00:00 36.6 C 60 16 107/53 L 96 - Problem List & Annotations (1) SBO (small bowel obstruction) SNOMED Code(s): 534463911 Code(s): K56.609 - UNSP INTESTNL OBST, UNSP TO PARTIAL VERSUS COMPLETE OBST Status: Acute Current Visit: Yes (2) Diabetes mellitus, type II SNOMED Code(s): 05942688 Code(s): E11.9 - TYPE 2 DIABETES MELLITUS WITHOUT COMPLICATIONS Status: Chronic Current Visit: No Qualifiers: Diabetes mellitus complication status: without complication - Problem List Review Problem List Initiated/Reviewed/Updated: Yes - My Orders Last 24 Hours: My Active Orders 12/27/19 09:24 Acetaminophen [TylenoL] 650 mg PO Q4H PRN - Plan Plan:: Assessment and Plan: 1. Small bowel obstruction: - NG-tube discontinued yesterday. Patient had 3 bowel movements and tolerating clear liquid diet. Currently on IV NS at 125 cc/hr. - CT abdomen showed small bowel obstruction, with distal bowel has been decompressed. 2. Diabetes mellitus type II: - Novolog SSI and accuchecks TIDAC. 3. Past medical history of HTN, HLD, COPD, Diabetic neuropathy: - Continue home dose medications.
[2019-12-27] MEDS ORDERED: FLU Vacc QV2020-21(65YR UP)/PF 240 MCG/0.7 ML Syringe IM ONE (10:00)
--- NOTE | 2019-12-27 11:41 | PCM.DCSUM1 ---
<Dio Gage - Last Filed: 12/27/19 11:43> Discharge Summary - Hospital Course Free Text/Narrative:: 64-year-old female admitted for small bowel obstruction. She has a PMH of DM type II, HTN, HLD, COPD and diabetic neuropathy. Abdominal x-ray showed air- filled, dilated loops of small bowel in left abdomen. CT abd showed small bowel obstruction with distal bowel decompressed. On admission, patient was made NPO and had NG tube placed for decompression. She was hydrated with IV fluids. Patient did have 3 large bowel movements and was able to tolerate oral diet by day of discharge. She was discharged in stable condition and advised to follow- up with PCP. - Discharge Data Discharge Date: 12/27/19 Discharge Disposition: Home, Self-Care 01 Condition: Stable - Referral to Home Health Primary Care Physician: Farideh DAVIES - Discharge Diagnosis/Problem(s) (1) SBO (small bowel obstruction) SNOMED Code(s): 381088045 ICD Code: K56.609 - UNSP INTESTNL OBST, UNSP TO PARTIAL VERSUS COMPLETE OBST Status: Acute (2) Diabetes mellitus, type II SNOMED Code(s): 56650309 ICD Code: E11.9 - TYPE 2 DIABETES MELLITUS WITHOUT COMPLICATIONS Status: Chronic Qualifiers: Diabetes mellitus complication status: without complication - Patient Instructions Diet: Mechanical Soft Diet, Other: soft diet, advance slowly as tolerated Activity: As Tolerated Notify Provider of: Fever, Increased Pain, Swelling and Redness, Drainage, Nausea and/or Vomiting - Discharge Plan *PRESCRIPTION DRUG MONITORING PROGRAM REVIEWED*: Not Applicable *COPY OF PRESCRIPTION DRUG MONITORING REPORT IN PATIENT RAVINDER: Not Applicable Home Medications: Home Meds Amitriptyline HCl 10 mg PO BEDTIME 11/07/17 [History] DULoxetine HCl [Cymbalta] 60 mg PO DAILY 11/07/17 [History] Furosemide 20 mg PO QAM 11/07/17 [History] Simvastatin [Zocor] 40 mg PO BEDTIME 11/07/17 [History] hydroCHLOROthiazide [Hydrochlorothiazide] 25 mg PO QAM 11/07/17 [History] metFORMIN HCl [Metformin HCl] 500 mg PO BID 11/07/17 [History] ALPRAZolam [Alprazolam] 0.5 mg PO BEDTIME 12/24/18 [History] Gabapentin [Neurontin] 100 mg PO BID 12/24/18 [History] Losartan [Cozaar] 50 mg PO DAILY 12/24/18 [History] Docusate Sodium [Colace] 100 mg PO BID PRN 12/26/18 [History] Empagliflozin [Jardiance] 1 dose PO DAILY 12/25/19 [History] Oxygen Therapy Mode: Room Air Patient Handouts: Bowel Obstruction, [id number] Referrals: [facility],Farideh [Primary Care Provider] - - Discharge Summary/Plan Comment DC Time >30 min.: No - Patient Data Vitals - Most Recent: Last Vital Signs Temp 35.3 C L 12/27/19 08:00 Pulse 63 12/27/19 08:00 Resp 15 12/27/19 08:00 BP 111/68 12/27/19 10:08 Pulse Ox 95 12/27/19 08:00 Weight - Most Recent: 86.2 kg I&O - Last 24 hours: Intake & Output 12/26/19 12/27/19 12/27/19 22:59 06:59 14:59 Intake Total 1230 740 Output Total 550 700 Balance 680 40 Lab Results - Last 24 hrs: Laboratory Results - last 24 hr 12/26/19 12/26/19 12/26/19 Range/Units 07:09 11:48 18:14 WBC (4.0-11.0) K/uL RBC (4.30-5.90) M/uL Hgb (12.0-16.0) g/dL Hct (36.0-46.0) % MCV (80.0-98.0) fL MCH (27.0-32.0) pg MCHC (31.0-37.0) g/dL RDW Std Deviation (28.0-62.0) fl RDW Coeff of Cynthia (11.0-15.0) % Plt Count (150-400) K/uL MPV (7.40-12.00) fL Neut % (Auto) (48.0-80.0) % Lymph % (Auto) (16.0-40.0) % Smyth % (Auto) (0.0-15.0) % Eos % (Auto) (0.0-7.0) % Baso % (Auto) (0.0-1.5) % Neut # (Auto) (1.4-5.7) K/uL Lymph # (Auto) (0.6-2.4) K/uL Smyth # (Auto) (0.0-0.8) K/uL Eos # (Auto) (0.0-0.7) K/uL Baso # (Auto) (0.0-0.1) K/uL Nucleated RBC % /100WBC Nucleated RBCs # K/uL Sodium (136-145) mmol/L Potassium (3.5-5.1) mmol/L Chloride (98-107) mmol/L Carbon Dioxide (21.0-32.0) mmol/L BUN (7.0-18.0) mg/dL Creatinine (0.6-1.0) mg/dL Est Cr Clr Drug Dosing mL/min Estimated GFR (MDRD) ml/min Glucose (74-106) mg/dL POC Glucose 112 H 103 92 (60-110) mg/dL Calcium (8.5-10.1) mg/dL 12/27/19 12/27/19 12/27/19 Range/Units 01:14 05:40 05:40 WBC 5.67 (4.0-11.0) K/uL RBC 3.64 L (4.30-5.90) M/uL Hgb 8.5 L (12.0-16.0) g/dL Hct 28.6 L (36.0-46.0) % MCV 78.6 L (80.0-98.0) fL MCH 23.4 L (27.0-32.0) pg MCHC 29.7 L (31.0-37.0) g/dL RDW Std Deviation 46.3 (28.0-62.0) fl RDW Coeff of Cynthia 16 H (11.0-15.0) % Plt Count 235 (150-400) K/uL MPV 12.20 H (7.40-12.00) fL Neut % (Auto) 49.8 (48.0-80.0) % Lymph % (Auto) 37.7 (16.0-40.0) % Smyth % (Auto) 9.7 (0.0-15.0) % Eos % (Auto) 2.6 (0.0-7.0) % Baso % (Auto) 0.2 (0.0-1.5) % Neut # (Auto) 2.8 (1.4-5.7) K/uL Lymph # (Auto) 2.1 (0.6-2.4) K/uL Smyth # (Auto) 0.6 (0.0-0.8) K/uL Eos # (Auto) 0.2 (0.0-0.7) K/uL Baso # (Auto) 0.0 (0.0-0.1) K/uL Nucleated RBC % 0.0 /100WBC Nucleated RBCs # 0 K/uL Sodium 142 (136-145) mmol/L Potassium 4.3 (3.5-5.1) mmol/L Chloride 110 H (98-107) mmol/L Carbon Dioxide 26.4 (21.0-32.0) mmol/L BUN 15 (7.0-18.0) mg/dL Creatinine 0.9 (0.6-1.0) mg/dL Est Cr Clr Drug Dosing 62.03 mL/min Estimated GFR (MDRD) > 60.0 ml/min Glucose 108 H (74-106) mg/dL POC Glucose 94 (60-110) mg/dL Calcium 7.7 L (8.5-10.1) mg/dL 12/27/19 Range/Units 06:30 WBC (4.0-11.0) K/uL RBC (4.30-5.90) M/uL Hgb (12.0-16.0) g/dL Hct (36.0-46.0) % MCV (80.0-98.0) fL MCH (27.0-32.0) pg MCHC (31.0-37.0) g/dL RDW Std Deviation (28.0-62.0) fl RDW Coeff of Cynthia (11.0-15.0) % Plt Count (150-400) K/uL MPV (7.40-12.00) fL Neut % (Auto) (48.0-80.0) % Lymph % (Auto) (16.0-40.0) % Smyth % (Auto) (0.0-15.0) % Eos % (Auto) (0.0-7.0) % Baso % (Auto) (0.0-1.5) % Neut # (Auto) (1.4-5.7) K/uL Lymph # (Auto) (0.6-2.4) K/uL Smyth # (Auto) (0.0-0.8) K/uL Eos # (Auto) (0.0-0.7) K/uL Baso # (Auto) (0.0-0.1) K/uL Nucleated RBC % /100WBC Nucleated RBCs # K/uL Sodium (136-145) mmol/L Potassium (3.5-5.1) mmol/L Chloride (98-107) mmol/L Carbon Dioxide (21.0-32.0) mmol/L BUN (7.0-18.0) mg/dL Creatinine (0.6-1.0) mg/dL Est Cr Clr Drug Dosing mL/min Estimated GFR (MDRD) ml/min Glucose (74-106) mg/dL POC Glucose 125 H (60-110) mg/dL Calcium (8.5-10.1) mg/dL Med Orders - Current: Current Medications Acetaminophen (Tylenol) 650 mg PO Q4H PRN PRN Reason: Pain Last Admin: 12/27/19 10:08 Dose: 650 mg Documented by: Alprazolam (Xanax) 0.5 mg PO BEDTIME [facility] Last Admin: 12/26/19 22:08 Dose: 0.5 mg Documented by: Amitriptyline HCl (Elavil) 10 mg PO BEDTIME [facility] Last Admin: 12/26/19 22:07 Dose: 10 mg Documented by: Dextrose/Water (Dextrose 50% In Water) 50 ml IV ASDIRECTED PRN PRN Reason: Hypoglycemia Docusate Sodium (Colace) 100 mg PO BID PRN PRN Reason: Constipation Duloxetine HCl (Cymbalta) 60 mg PO DAILY [facility] Last Admin: 12/27/19 08:44 Dose: 60 mg Documented by: Fentanyl (Sublimaze) 25 mcg IVPUSH Q3H PRN PRN Reason: Pain Last Admin: 12/26/19 09:00 Dose: 25 mcg Documented by: Furosemide (Lasix) 20 mg PO QAM [facility] Last Admin: 12/27/19 08:44 Dose: 20 mg Documented by: Gabapentin (Neurontin) 100 mg PO BID [facility] Last Admin: 12/27/19 08:45 Dose: 100 mg Documented by: Glucagon (Glucagen) 1 mg IM ASDIRECTED PRN PRN Reason: Hypoglycemia Hydrochlorothiazide (Hydrochlorothiazide) 25 mg PO QAM [facility] Last Admin: 12/27/19 08:48 Dose: 25 mg Documented by: Sodium Chloride (Normal Saline) 1,000 mls @ 125 mls/hr IV ASDIRECTED [facility] Last Admin: 12/27/19 06:30 Dose: 125 mls/hr Documented by: Insulin Aspart (Novolog) 0 unit SUBCUT Q6H [facility]; Protocol Last Admin: 12/27/19 08:15 Dose: Not Given Documented by: Losartan Potassium (Cozaar) 50 mg PO DAILY [facility] Last Admin: 12/27/19 08:50 Dose: Not Given Documented by: Ondansetron HCl (Zofran) 4 mg IVPUSH Q4H PRN PRN Reason: Nausea Simvastatin (Zocor) 40 mg PO BEDTIME [facility] Last Admin: 12/26/19 22:08 Dose: 40 mg Documented by: Sodium Chloride (Saline Flush) 10 ml FLUSH ASDIRECTED PRN PRN Reason: Keep Vein Open Sodium Chloride (Saline Flush) 2.5 ml FLUSH ASDIRECTED PRN PRN Reason: Keep Vein Open Discontinued Medications Fentanyl (Fentanyl) 50 mcg IVPUSH ONETIME ONE Stop: 12/25/19 23:04 Last Admin: 12/25/19 23:12 Dose: 50 mcg Documented by: Fentanyl (Fentanyl) 25 mcg IVPUSH Q3H PRN PRN Reason: Pain Hydromorphone HCl (Dilaudid) 1 mg IVPUSH ONETIME ONE Stop: 12/25/19 22:48 Last Admin: 12/25/19 23:06 Dose: Not Given Documented by: Hydromorphone HCl (Dilaudid) 1 mg IVPUSH ONETIME ONE Stop: 12/26/19 01:13 Last Admin: 12/26/19 01:19 Dose: 1 mg Documented by: Hydromorphone HCl (Dilaudid) Confirm Administered Dose 1 mg .ROUTE .STK-MED ONE Stop: 12/26/19 01:13 Last Admin: 12/26/19 01:22 Dose: Not Given Documented by: Sodium Chloride (Normal Saline) 1,000 mls @ 999 mls/hr IV .BOLUS ONE Stop: 12/25/19 22:25 Last Admin: 12/25/19 22:06 Dose: 999 mls/hr Documented by: Potassium Chloride/Sodium Chloride (Normal Saline With 40 Meq Kcl) 1,000 mls @ 250 mls/hr IV ASDIRECTED [facility] Last Admin: 12/25/19 23:59 Dose: 250 mls/hr Documented by: Potassium Chloride 40 meq/ (Sodium Chloride) 500 mls @ 125 mls/hr IV ONETIME ONE Stop: 12/26/19 06:53 Last Admin: 12/26/19 14:12 Dose: Not Given Documented by: Potassium Chloride/Sodium Chloride (Normal Saline With 40 Meq Kcl) 1,000 mls @ 125 mls/hr IV NOW ONE Stop: 12/26/19 11:14 Last Admin: 12/26/19 03:15 Dose: 125 mls/hr Documented by: Potassium Chloride/Sodium Chloride (Normal Saline With 40 Meq Kcl) 1,000 mls @ 125 mls/hr IV ASDIRECTED [facility] Last Admin: 12/26/19 11:06 Dose: 125 mls/hr Documented by: Influenza Virus Vaccine (Pharmacy To Dose - Influenza Vaccine) 1 each IM ONETIME ONE Stop: 12/26/19 05:52 Influenza Virus Vaccine (Fluzone High-Dose Quad 2020-21) 240 mcg IM .ONCE ONE Stop: 12/27/19 10:01 Lidocaine HCl (Xylocaine 2% Viscous) Confirm Administered Dose 15 ml .ROUTE .STK-MED ONE Stop: 12/26/19 00:50 Last Admin: 12/26/19 01:09 Dose: 15 ml Documented by: Ondansetron HCl (Zofran) 4 mg IVPUSH ONETIME ONE Stop: 12/25/19 22:00 Last Admin: 12/25/19 22:06 Dose: 4 mg Documented by: Ondansetron HCl (Zofran) Confirm Administered Dose 4 mg .ROUTE .STK-MED ONE Stop: 12/25/19 22:00 Last Admin: 12/25/19 22:03 Dose: Not Given Documented by: Ondansetron HCl (Zofran) 4 mg IVPUSH ONETIME ONE Stop: 12/26/19 01:12 Last Admin: 12/26/19 01:19 Dose: 4 mg Documented by: Ondansetron HCl (Zofran) Confirm Administered Dose 4 mg .ROUTE .STK-MED ONE Stop: 12/26/19 01:13 Last Admin: 12/26/19 01:21 Dose: Not Given Documented by: Oxymetazoline HCl (Nasal Decongestant [place]) 2 ml [place]EN ONETIME ONE Stop: 12/26/19 01:10 Last Admin: 12/26/19 14:11 Dose: Not Given Documented by: Potassium Chloride (Klor-Con M20) 40 meq PO ONETIME ONE Stop: 12/25/19 22:42 Last Admin: 12/25/19 22:56 Dose: 40 meq Documented by: <Andrey Berkowitz - Last Filed: 12/28/19 19:05> Discharge Summary - Referral to Home Health Primary Care Physician: Farideh DAVIES - Patient Data Vitals - Most Recent: Last Vital Signs Temp 36.2 C 12/27/19 14:00 Pulse 66 12/27/19 14:00 Resp 16 12/27/19 14:00 BP 122/46 L 12/27/19 14:00 Pulse Ox 96 12/27/19 14:00 Med Orders - Current: Current Medications Discontinued Medications Acetaminophen (Tylenol) 650 mg PO Q4H PRN PRN Reason: Pain Last Admin: 12/27/19 10:08 Dose: 650 mg Documented by: Alprazolam (Xanax) 0.5 mg PO BEDTIME [facility] Last Admin: 12/26/19 22:08 Dose: 0.5 mg Documented by: Amitriptyline HCl (Elavil) 10 mg PO BEDTIME [facility] Last Admin: 12/26/19 22:07 Dose: 10 mg Documented by: Dextrose/Water (Dextrose 50% In Water) 50 ml IV ASDIRECTED PRN PRN Reason: Hypoglycemia Docusate Sodium (Colace) 100 mg PO BID PRN PRN Reason: Constipation Duloxetine HCl (Cymbalta) 60 mg PO DAILY [facility] Last Admin: 12/27/19 08:44 Dose: 60 mg Documented by: Fentanyl (Fentanyl) 50 mcg IVPUSH ONETIME ONE Stop: 12/25/19 23:04 Last Admin: 12/25/19 23:12 Dose: 50 mcg Documented by: Fentanyl (Fentanyl) 25 mcg IVPUSH Q3H PRN PRN Reason: Pain Fentanyl (Sublimaze) 25 mcg IVPUSH Q3H PRN PRN Reason: Pain Last Admin: 12/26/19 09:00 Dose: 25 mcg Documented by: [facility] Admin: 12/27/19 08:44 Dose: 20 mg Documented by: Gabapentin (Neurontin) 100 mg PO BID [facility] Last Admin: 12/27/19 08:45 Dose: 100 mg Documented by: Glucagon (Glucagen) 1 mg IM ASDIRECTED PRN PRN Reason: Hypoglycemia Hydrochlorothiazide (Hydrochlorothiazide) 25 mg PO [facility] Last Admin: 12/27/19 08:48 Dose: 25 mg Documented by: Hydromorphone HCl (Dilaudid) 1 mg IVPUSH ONETIME ONE Stop: 12/25/19 22:48 Last Admin: 12/25/19 23:06 Dose: Not Given Documented by: Hydromorphone HCl (Dilaudid) 1 mg IVPUSH ONETIME ONE Stop: 12/26/19 01:13 Last Admin: 12/26/19 01:19 Dose: 1 mg Documented by: Hydromorphone HCl (Dilaudid) Confirm Administered Dose 1 mg .ROUTE .STK-MED ONE Stop: 12/26/19 01:13 Last Admin: 12/26/19 01:22 Dose: Not Given Documented by: Sodium Chloride (Normal Saline) 1,000 mls @ 999 mls/hr IV .BOLUS ONE Stop: 12/25/19 22:25 Last Admin: 12/25/19 22:06 Dose: 999 mls/hr Documented by: Potassium Chloride/Sodium Chloride (Normal Saline With 40 Meq Kcl) 1,000 mls @ 250 mls/hr IV ASDIRECTED [facility] Last Admin: 12/25/19 23:59 Dose: 250 mls/hr Documented by: Potassium Chloride 40 meq/ (Sodium Chloride) 500 mls @ 125 mls/hr IV ONETIME ONE Stop: 12/26/19 06:53 Last Admin: 12/26/19 14:12 Dose: Not Given Documented by: Potassium Chloride/Sodium Chloride (Normal Saline With 40 Meq Kcl) 1,000 mls @ 125 mls/hr IV NOW ONE Stop: 12/26/19 11:14 Last Admin: 12/26/19 03:15 Dose: 125 mls/hr Documented by: Potassium Chloride/Sodium Chloride (Normal Saline With 40 Meq Kcl) 1,000 mls @ 125 mls/hr IV ASDIRECTED [facility] Last Admin: 12/26/19 11:06 Dose: 125 mls/hr Documented by: Sodium Chloride (Normal Saline) 1,000 mls @ 125 mls/hr IV ASDIRECTED [facility] Last Admin: 12/27/19 06:30 Dose: 125 mls/hr Documented by: Influenza Virus Vaccine (Pharmacy To Dose - Influenza Vaccine) 1 each IM ONETIME ONE Stop: 12/26/19 05:52 Influenza Virus Vaccine (Fluzone High-Dose Quad ) 240 mcg IM .ONCE ONE Stop: 12/27/19 10:01 Last Admin: 12/27/19 13:54 Dose: 240 mcg Documented by: Insulin Aspart (Novolog) 0 unit SUBCUT Q6H [facility]; Protocol Last Admin: 12/27/19 08:15 Dose: Not Given Documented by: Lidocaine HCl (Xylocaine 2% Viscous) Confirm Administered Dose 15 ml .ROUTE .S TK-MED ONE Stop: 12/26/19 00:50 Last Admin: 12/26/19 01:09 Dose: 15 ml Documented by: Losartan Potassium (Cozaar) 50 mg PO DAILY [facility] Last Admin: 12/27/19 08:50 Dose: Not Given Documented by: Ondansetron HCl (Zofran) 4 mg IVPUSH ONETIME ONE Stop: 12/25/19 22:00 Last Admin: 12/25/19 22:06 Dose: 4 mg Documented by: Ondansetron HCl (Zofran) Confirm Administered Dose 4 mg .ROUTE .STK-MED ONE Stop: 12/25/19 22:00 Last Admin: 12/25/19 22:03 Dose: Not Given Documented by: Ondansetron HCl (Zofran) 4 mg IVPUSH ONETIME ONE Stop: 12/26/19 01:12 Last Admin: 12/26/19 01:19 Dose: 4 mg Documented by: Ondansetron HCl (Zofran) Confirm Administered Dose 4 mg .ROUTE .STK-MED ONE Stop: 12/26/19 01:13 Last Admin: 12/26/19 01:21 Dose: Not Given Documented by: Ondansetron HCl (Zofran) 4 mg IVPUSH Q4H PRN PRN Reason: Nausea Oxymetazoline HCl (Nasal Decongestant [place]) 2 ml [place] ONETIME ONE Stop: 12/26/19 01:10 Last Admin: 12/26/19 14:11 Dose: Not Given Documented by: Potassium Chloride (Klor-Con M20) 40 meq PO ONETIME ONE Stop: 12/25/19 22:42 Last Admin: 12/25/19 22:56 Dose: 40 meq Documented by: Simvastatin (Zocor) 40 mg PO BEDTIME [facility] Last Admin: 12/26/19 22:08 Dose: 40 mg Documented by: Sodium Chloride (Saline Flush) 10 ml FLUSH ASDIRECTED PRN PRN Reason: Keep Vein Open Sodium Chloride (Saline Flush) 2.5 ml FLUSH ASDIRECTED PRN PRN Reason: Keep Vein Open - Free Text/Narrative Note: I have seen and evaluated the patient. I have discussed findings and treatment plan with resident. I agree with the assessment and plan in the following note.
[2019-12-27 14:31] VITALS: BP 122/46; PULSE 66
== END 2019-12-27 15:10 | disposition home or self-care (01) | DRG 390 ==
LOC: MW.ED 21:11 → MW.MS 23:08
PROVIDERS: ADMIT Internal Medicine; ATTEND Internal Medicine
DX: K56.609 Unspecified intestinal obstruction, unspecified as to partial versus complete obstruction (principal); H54.7 Unspecified visual loss; E11.9 Type 2 diabetes mellitus without complications; E78.00 Pure hypercholesterolemia, unspecified; J43.9 Emphysema, unspecified; Z98.84 Bariatric surgery status; I10 Essential (primary) hypertension; J44.9 Chronic obstructive pulmonary disease, unspecified; E11.21 Type 2 diabetes mellitus with diabetic nephropathy; Z88.8 Allergy status to other drugs, medicaments and biological substances; M54.9 Dorsalgia, unspecified; G89.29 Other chronic pain; E11.42 Type 2 diabetes mellitus with diabetic polyneuropathy; E78.5 Hyperlipidemia, unspecified; Z88.1 Allergy status to other antibiotic agents; Z79.84 Long term (current) use of oral hypoglycemic drugs; Z79.899 Other long term (current) drug therapy; Z98.49 Cataract extraction status, unspecified eye; Z87.442 Personal history of urinary calculi; Z90.49 Acquired absence of other specified parts of digestive tract; Z90.710 Acquired absence of both cervix and uterus; Z23 Encounter for immunization; Z20.828 Contact with and (suspected) exposure to other viral communicable diseases
CPT/HCPCS: 36415; 74022; 80053; 81001; 83690; 83735; 85025; A9270; J2405; J7030; 43752; 74018; 74018-26; 74176; 74176-26; 80048; 82962; 90662; 96374; 99285-25; J1170; J3010; J3480; U0002

== ENCOUNTER 2020-06-06 04:52 | Emergency (ER) | payer MEDICARE ==
[2020-06-06 05:14] VITALS: BP 126/33; PULSE 67
[2020-06-06] MEDS ORDERED: Morphine 4 MG/ML Syringe IVPUSH ONE ×2 (05:18→07:07)
[2020-06-06] MEDS ORDERED: Ondansetron 4 MG/2 ML SDV IVPUSH ONE (05:24)
[2020-06-06] MEDS: Lactated Ringers 1,000 ML IV SCH ×2 (05:28→07:41)
--- NOTE | 2020-06-06 05:31 | EDM.PDOC ---
ED HPI GENERAL MEDICAL PROBLEM - General Chief Complaint: Abdominal Pain Stated Complaint: SICK Time Seen by Provider: 06/06/20 05:04 - History of Present Illness INITIAL COMMENTS - FREE TEXT/NARRATIVE: CHIEF COMPLAINT(S): I think I have a bowel obstruction HISTORY OF PRESENT ILLNESS: This is a 64-year-old woman with a past medical history of gastric bypass and recurrent small bowel obstruction who comes to the emergency department with a chief complaint of "I think I have a bowel obstruction." The patient states that she has not had a normal bowel movement in the last 2 days. She states that starting approximately 8 hours ago she started to experience pain in her upper abdomen which she describes as sharp rated 6-9 out of 10 and intermittent. She initially did not have any nausea or vomiting and took an antacid, castor oil and did 2 saline enemas. She states that she did have some results with passing liquidy stool however the pain in her abdomen on the upper part has continued. She states that she is now having nausea and did vomit up her food from this evening. She denies any fever, chills, chest pain, shortness of breath. She states that she was evaluated last time and had a follow-up appointment with GI at [facility] in [place] for a colonoscopy and endoscopy however she got sick and was unable to attend those. She denies any other symptoms. REVIEW OF SYSTEMS: Constitutional: Denies fever, chills. Eyes: Denies eye pain Ears, Nose, Mouth, & Throat: Denies earache Cardiovascular: Denies chest pain Respiratory: Denies shortness of breath Gastrointestinal: Positive for abdominal pain, nausea, vomiting. Denies diarrhea, hematochezia, melena, hematemesis Genitourinary: Denies hematuria Skin:Denies a rash MSK: Denies joint pain Neurological: Denies blurred vision Psychiatric: Denies depression PAST MEDICAL HISTORY: As per history of present illness and as reviewed below otherwise noncontributory. SURGICAL HISTORY: As per history of present illness and as reviewed below otherwise noncontributory. SOCIAL HISTORY: As per history of present illness and as reviewed below otherwise noncontributory. FAMILY HISTORY: As per history of present illness and as reviewed below otherwi se noncontributory. EXAMINATION OF ORGAN SYSTEMS/BODY AREAS: Constitutional: Blood pressure is 126/33, heart rate 67, respiratory rate 19 with an oxygen saturation 96% on room air. Temperature 36.4 General: Middle-aged woman who does appear to be in a mild amount of distress Psychiatric: Appropriate mood and affect. Eyes: No scleral icterus or conjunctival erythema ENMT: Moist mucous membranes. No pharyngeal erythema Cardiovascular: Regular, rate, and rhythm. No gallops, murmurs, or rubs. Bilateral upper extremity pulses symmetric and intact. No peripheral edema. No JVD. Respiratory: Lungs clear to auscultation bilaterally. No wheezes, rales, or rhonchi. Gastrointestinal: Soft, minimally distended, tenderness to palpation in the epigastric and left upper quadrant region. No rebound or guarding. Hyperactive bowel sounds in the upper part of the abdomen. Absent bowel sounds in the lower part of the abdomen. Genitourinary: No suprapubic tenderness Musculoskeletal: Normal range of motion. Skin: No lesions or abrasions. Neurological: Alert, GCS 15 MEDICAL DECISION MAKING AND COURSE IN THE ED WITH INTERPRETATION/REVIEW OF DIAGNOSTIC STUDIES: This is a 64-year-old and with a past medical history of gastric bypass and recurrent small bowel obstruction who comes to the emergency department with epigastric abdominal pain with nausea and vomiting with change of bowel movements for approximately 48 hours who has hyperactive bowel sounds and mild distention on examination. At this time I do suspect the patient may have recurrent small bowel obstruction. Differential also includes internal hernia given the gastric bypass. Will obtain a CT abdomen pelvis with contrast for evaluation. We will provide the patient with 1 L of lactated Ringer's bolus, morphine 4 mg IV, and 4 mg of IV Zofran. Will obtain basic labs including CBC and CMP. Laboratory: CBC reveals a leukocytosis of 13.33 without any left shift. Hemoglobin is 11.2 and hematocrit of 37.4. CMP reveals elevated creatinine at 1.3 which is up from prior, hyperglycemia at 174 and alkaline phosphatase of 178. Covid is negative. The radiological images were viewed by myself along with reading the report from the radiologist. CT abdomen pelvis without contrast reveals a dilated small bowel loops measuring up to 3.4 cm with transition point in the left lower quadrant. Findings are due to high-grade distal small bowel obstruction. After imaging I did discuss results with the patient. At this time I discussed with her that we need to place an NG tube and make her n.p.o. I discussed that she would need to be admitted. She was amenable to this plan. I contacted Dr. Altamirano and given her bypass history he recommends transfer to a gastric bypass center. Therefore I contacted [facility] in [place] and spoke with Dr. Cabrera ER physician who stated that the patient should be transferred to [place]. Therefore I contacted [facility] in [place] and spoke with Dr. Ragsdale who accepted the patient for transfer. The patient will be transferred via ALS. At the time of signout, the patient was pending transport. DISPOSITION: Patient will be transferred to [facility] in [place]. CONDITION: Serious PROCEDURES: None FINAL IMPRESSION(S)/DIAGNOSES: 1. Acute high-grade small bowel obstruction Armond Corbin M.D. Lower Abdomen Pain Score (Numeric/FACES): 9 - Related Data Allergies Allergy/AdvReac Type Severity Reaction Status Date / Time cefoxitin [From Mefoxin] Allergy Anaphylactic Verified 06/06/20 05:07 Shock Home Meds: Home Meds Amitriptyline HCl 10 mg PO BEDTIME 11/07/17 [History] DULoxetine HCl [Cymbalta] 60 mg PO DAILY 11/07/17 [History] Furosemide 20 mg PO QAM 11/07/17 [History] Simvastatin [Zocor] 40 mg PO BEDTIME 11/07/17 [History] hydroCHLOROthiazide [Hydrochlorothiazide] 25 mg PO QAM 11/07/17 [History] metFORMIN HCl [Metformin HCl] 500 mg PO BID 11/07/17 [History] ALPRAZolam [Alprazolam] 0.5 mg PO BEDTIME 12/24/18 [History] Gabapentin [Neurontin] 100 mg PO BID 12/24/18 [History] Losartan [Cozaar] 50 mg PO DAILY 12/24/18 [History] Docusate Sodium [Colace] 100 mg PO BID PRN 12/26/18 [History] Empagliflozin [Jardiance] 1 dose PO DAILY 12/25/19 [History] Past Medical History HEENT History: Reports: Cataract Other HEENT History: wears glasses Cardiovascular History: Reports: High Cholesterol, Hypertension, Other (See Below) Other Cardiovascular History: enlarged left ventricle Respiratory History: Reports: Asthma, COPD, Other (See Below) Other Respiratory History: Valley disease, emphasima Gastrointestinal History: Reports: Other (See Below) Other Gastrointestinal History: gastric bypass Genitourinary History: Reports: Renal Calculus [employer] History: Reports: Endometriosis Musculoskeletal History: Reports: Back Pain, Chronic Other Musculoskeletal History: foot and wrist surgery Neurological History: Reports: Neuropathy, Diabetic Other Neuro History: Fibromyalgia Psychiatric History: Reports: None Endocrine/Metabolic History: Reports: Diabetes, Type II Hematologic History: Reports: None Immunologic History: Reports: None Oncologic (Cancer) History: Reports: None Dermatologic History: Reports: None - Infectious Disease History Infectious Disease History: Reports: Chicken Pox, Measles, Mumps - Past Surgical History Head Surgeries/Procedures: Reports: None HEENT Surgical History: Reports: Cataract Surgery Cardiovascular Surgical History: Reports: None Respiratory Surgical History: Reports: None GI Surgical History: Reports: Appendectomy, Cholecystectomy Other GI Surgeries/Procedures: gatric bypass Female Surgical History: Reports: Hysterectomy, Salpingo-Oophorectomy Endocrine Surgical History: Reports: None Neurological Surgical History: Reports: C-Spine Musculoskeletal Surgical History: Reports: Carpal Tunnel, Other (See Below) Other Musculoskeletal Surgeries/Procedures:: foot and wrist surgery Social & Family History - Family History Family Medical History: No Pertinent Family History HEENT: Reports: None Cardiac: Reports: Heart Failure, Hypertension, [place], Pacemaker Respiratory: Reports: COPD GI: Reports: None OBGYN: Reports: None Musculoskeletal: Reports: Arthritis Psychiatric: Reports: Bipolar, Depression, OCD Endocrine/Metabolic: Reports: None Dermatologic: Reports: Eczema Oncologic: Reports: Lymphoma, Ovarian - Tobacco Use Tobacco Use Status *Q: Never Tobacco User - Caffeine Use Caffeine Use: Reports: Coffee - Recreational Drug Use Recreational Drug Use: No ED ROS GENERAL - Review of Systems Review Of Systems: See Below ED EXAM, GENERAL - Physical Exam Exam: See Below Course - Vital Signs Last Recorded V/S: Last Vital Signs Temp 36.4 C 06/06/20 05:09 Pulse 67 06/06/20 05:09 Resp 19 06/06/20 05:09 BP 126/33 L 06/06/20 05:09 Pulse Ox 96 06/06/20 05:09 - Orders/Labs/Meds Orders: Active Orders 24 hr Category Date Time Status NG Tube Placement [CR] Stat Exams 06/06/20 07:08 Ordered Lactated Ringers [Ringers, Lactated] 1,000 ml Med 06/06/20 05:30 Active IV ASDIRECTED Lactated Ringers [Ringers, Lactated] 1,000 ml Med 06/06/20 07:15 Active IV ASDIRECTED Medication Orders Lactated Ringer's (Ringers, Lactated) 1,000 mls @ 999 mls/hr IV ASDIRECTED CLAIRE Last Admin: 06/06/20 05:28 Dose: 999 mls/hr Documented by: EDUARDO Lactated Ringer's (Ringers, Lactated) 1,000 mls @ 125 mls/hr IV ASDIRECTED CLAIRE Labs: Laboratory Tests 06/06/20 06/06/20 06/06/20 Range/Units 05:12 05:12 05:30 WBC 13.33 H (4.0-11.0) K/uL RBC 5.02 (4.30-5.90) M/uL Hgb 11.2 L (12.0-16.0) g/dL Hct 37.4 (36.0-46.0) % MCV 74.5 L (80.0-98.0) fL MCH 22.3 L (27.0-32.0) pg MCHC 29.9 L (31.0-37.0) g/dL RDW Std Deviation 46.0 (28.0-62.0) fl RDW Coeff of Cynthia 17 H (11.0-15.0) % Plt Count 343 (150-400) K/uL MPV 12.00 (7.40-12.00) fL Neut % (Auto) 78.0 (48.0-80.0) % Lymph % (Auto) 15.6 L (16.0-40.0) % [place] % (Auto) 5.6 (0.0-15.0) % Eos % (Auto) 0.4 (0.0-7.0) % Baso % (Auto) 0.4 (0.0-1.5) % Neut # (Auto) 10.4 H (1.4-5.7) K/uL Lymph # (Auto) 2.1 (0.6-2.4) K/uL [place] # (Auto) 0.8 (0.0-0.8) K/uL Eos # (Auto) 0.1 (0.0-0.7) K/uL Baso # (Auto) 0.1 (0.0-0.1) K/uL Nucleated RBC % 0.0 /100WBC Nucleated RBCs # 0 K/uL Sodium 142 (136-145) mmol/L Potassium 3.5 (3.5-5.1) mmol/L Chloride 100 (98-107) mmol/L Carbon Dioxide 30.4 (21.0-32.0) mmol/L BUN 17 (7.0-18.0) mg/dL Creatinine 1.3 H (0.6-1.0) mg/dL Est Cr Clr Drug Dosing 42.94 mL/min Estimated GFR (MDRD) 41.0 ml/min Glucose 174 H (74-106) mg/dL Calcium 9.1 (8.5-10.1) mg/dL Total Bilirubin 0.4 (0.2-1.0) mg/dL AST 24 (15-37) IU/L ALT 24 (14-63) IU/L Alkaline Phosphatase 178 H (46-116) U/L Total Protein 7.8 (6.4-8.2) g/dL Albumin 4.1 (3.4-5.0) g/dL Globulin 3.7 (2.6-4.0) g/dL Albumin/Globulin Ratio 1.1 (0.9-1.6) SARS-CoV-2 RNA (MARCO) NEGATIVE (NEGATIVE) Meds: Medications Generic Name Dose Route Start Last Admin Trade Name Freq PRN Reason Stop Dose Admin Lactated Ringer's 1,000 mls @ 999 mls/hr 06/06/20 05:30 06/06/20 05:28 Ringers, Lactated IV 999 mls/hr ASDIRECTED CLAIRE Administration Lactated Ringer's 1,000 mls @ 125 mls/hr 06/06/20 07:15 Ringers, Lactated IV ASDIRECTED CLAIRE Discontinued Medications Generic Name Dose Route Start Last Admin Trade Name Freq PRN Reason Stop Dose Admin Morphine Sulfate 4 mg 06/06/20 05:18 06/06/20 05:28 Morphine 4 Mg/Ml Syringe IVPUSH 06/06/20 05:19 4 mg ONETIME ONE Administration Morphine Sulfate 4 mg 06/06/20 07:07 Morphine 4 Mg/Ml Syringe IVPUSH 06/06/20 07:08 ONETIME ONE Ondansetron HCl 4 mg 06/06/20 05:24 06/06/20 05:28 Ondansetron 4 Mg/2 Ml Sdv IVPUSH 06/06/20 05:25 4 mg ONETIME ONE Administration Departure - Departure Time of Disposition: 07:17 Disposition: DC/Tfer to Acute Hospital 02 Condition: Fair Clinical Impression: Small bowel obstruction - Discharge Information *PRESCRIPTION DRUG MONITORING PROGRAM REVIEWED*: No *COPY OF PRESCRIPTION DRUG MONITORING REPORT IN PATIENT RAVINDER: No Referrals: Charly Garcia MD [Primary Care Provider] - Forms: ED Department Discharge Sepsis Event Note (ED) - Evaluation Sepsis Screening Result: No Definite Risk - Focused Exam Vital Signs: Vital Signs Temp Pulse Resp BP Pulse Ox 06/06/20 05:09 36.4 C 67 19 126/33 L 96 - My Orders Last 24 Hours: My Active Orders 06/06/20 05:30 Lactated Ringers [Ringers, Lactated] 1,000 ml IV ASDIRECTED 06/06/20 07:08 NG Tube Placement [CR] Stat 06/06/20 07:15 Lactated Ringers [Ringers, Lactated] 1,000 ml IV ASDIRECTED - Assessment/Plan Last 24 Hours: My Active Orders 06/06/20 05:30 Lactated Ringers [Ringers, Lactated] 1,000 ml IV ASDIRECTED 06/06/20 07:08 NG Tube Placement [CR] Stat 06/06/20 07:15 Lactated Ringers [Ringers, Lactated] 1,000 ml IV ASDIRECTED
[2020-06-06 05:33] LABS: CARBON DIOXIDE,CO2 30.4 mmol/L (21.0-32.0); POTASSIUM,K 3.5 mmol/L (3.5-5.1)
--- NOTE | 2020-06-06 06:20 | CT ---
INDICATION: Recurrent small bowel obstruction TECHNIQUE: CT Abdomen and pelvis without i.v. contrast. Coronal and sagittal reformats were obtained. COMPARISON: None FINDINGS: Lower chest: Unremarkable. Liver: Unremarkable. Spleen: Unremarkable. Pancreas: Unremarkable. Gallbladder: Unremarkable. Kidney: Unremarkable. No kidney or ureteral stones or obstruction seen. Adrenal: Unremarkable. Bowel: Severe sigmoid diverticulosis is present with no evidence of diverticulitis. Previous gastric bypass surgery is noted. Dilated small bowel loops are seen measuring up to 3.4 cm with transition point in the left lower quadrant. The appendix is not identified. Vascular: Unremarkable. Lymph: Unremarkable. Peritoneum: Unremarkable. No pneumoperitoneum is seen. No significant ascites is noted. Pelvis: Unremarkable. Soft tissue: Unremarkable. Bone: Unremarkable for age. Miscellaneous: Bilateral calcified granulomas are present measuring up to 13 mm. IMPRESSION: 1. Dilated small bowel loops are seen measuring up to 3.4 cm with transition point in the left lower quadrant. Findings likely due to high-grade distal small-bowel obstruction. Dictated by Estrada Best MD @ 06/06/2020 6:18:57 AM Please note that all CT scans at this facility use dose modulation, iterative reconstruction, and/or weight-based dosing when appropriate to reduce radiation dose to as low as reasonably achievable. Dictated by: Estrada Best MD @ 06/06/2020 06:18:59 (Electronically Signed)
[2020-06-06] MEDS ORDERED: Lactated Ringers 1,000 ML IV SCH (07:15)
--- NOTE | 2020-06-06 08:46 | CR ---
INDICATION: NG tube placement for small-bowel obstruction. IMPRESSION: Tip of the enteric tube is in the stomach. Side port is not well seen but likely is just at the GE junction level and advancement recommended. Dictated by Ayush Gillespie MD @ 06/06/2020 8:44:[address] Ayush Gillespie @ Jun 06 2020 8:44AM
== END 2020-06-06 09:02 ==
LOC: MW.ED 04:52
DX: K56.609 Unspecified intestinal obstruction, unspecified as to partial versus complete obstruction (principal); E78.00 Pure hypercholesterolemia, unspecified; I10 Essential (primary) hypertension; J44.9 Chronic obstructive pulmonary disease, unspecified; E11.40 Type 2 diabetes mellitus with diabetic neuropathy, unspecified; Z79.84 Long term (current) use of oral hypoglycemic drugs; Z79.899 Other long term (current) drug therapy; Z88.1 Allergy status to other antibiotic agents; Z20.822 Contact with and (suspected) exposure to COVID-19
CPT/HCPCS: 36415; 43752; 71045; 74176; 80053; 85025; 96374; 96375; 96376; 99285; J2270; J2405; J7120; U0002; 99284

== ENCOUNTER 2021-09-04 23:34 | Observation (INO) | payer MEDICARE, OTHER ==
[2021-09-04] MEDS ORDERED: Sodium Chloride 0.9% 1,000 ML IV ONE (23:58)
[2021-09-04] MEDS ORDERED: Morphine 4 MG/ML VIAL IVPUSH ONE (23:58)
[2021-09-04] MEDS ORDERED: Ondansetron 4 MG/2 ML SDV IVPUSH ONE (23:58)
[2021-09-05 01:25] LABS: CARBON DIOXIDE,CO2 28.2 mmol/L (21.0-32.0)
[2021-09-05] MEDS ORDERED: Lidocaine 1% 5 ML VIAL ONE (03:20)
[2021-09-05] MEDS ORDERED: Sodium Chloride 0.9% 1,000 ML IV ONE (03:46)
[2021-09-05] MEDS ORDERED: Ondansetron 4 MG/2 ML SDV IVPUSH PRN (08:22)
[2021-09-05] MEDS ORDERED: Sodium Chloride 0.9% 2.5 ML Syringe FLUSH PRN (08:22)
[2021-09-05] MEDS ORDERED: Sodium Chloride 0.9% 10 ML Syringe FLUSH PRN (08:22)
[2021-09-05] MEDS ORDERED: 50% Dextrose in Water 50 ML Syringe IVPUSH PRN (08:56)
[2021-09-05] MEDS ORDERED: Glucagon,Human Recombinant 1 MG Vial IM PRN (08:56)
[2021-09-05] MEDS: Pantoprazole 40 MG in Sodium Chloride 0.9% 10 ML IVPUSH SCH (09:03)
[2021-09-05] MEDS: Lactated Ringers 1,000 ML IV SCH ×2 (09:09→17:44)
[2021-09-05] MEDS: Insulin Aspart 100 Units/ML 3 ML Pen SUBCUT SCH ×2 (12:11→18:12)
[2021-09-05] MEDS: Morphine 2 MG/ML SYRINGE IVPUSH PRN ×2 (12:11→18:12)
[2021-09-05] MEDS ORDERED: Phenol 1.4% Oral Spray 177 ML Bottle MUCMEM PRN (16:22)
[2021-09-05] MEDS: Dextrose 5%-Lactated Ringers 1,000 ML IV SCH (20:10)
[2021-09-06] MEDS: Insulin Aspart 100 Units/ML 3 ML Pen SUBCUT SCH ×4 (01:05→18:50)
[2021-09-06] MEDS: Dextrose 5%-Lactated Ringers 1,000 ML IV SCH ×3 (04:16→20:39)
[2021-09-06 07:21] LABS: CARBON DIOXIDE,CO2 28.9 mmol/L (21.0-32.0); POTASSIUM,K 3.7 mmol/L (3.5-5.1)
[2021-09-06] MEDS: Pantoprazole 40 MG in Sodium Chloride 0.9% 10 ML IVPUSH SCH (08:25)
[2021-09-06] MEDS: Morphine 2 MG/ML SYRINGE IVPUSH PRN (10:22)
[2021-09-07] MEDS: Insulin Aspart 100 Units/ML 3 ML Pen SUBCUT SCH ×3 (01:00→12:33)
[2021-09-07 07:40] LABS: CARBON DIOXIDE,CO2 28.6 mmol/L (21.0-32.0); POTASSIUM,K 3.4 mmol/L (3.5-5.1)
[2021-09-07] MEDS ORDERED: Potassium Chloride 20 MEQ Tab.ER PO ONE (07:56)
[2021-09-07] MEDS: Pantoprazole 40 MG in Sodium Chloride 0.9% 10 ML IVPUSH SCH (08:07)
[2021-09-07 13:14] VITALS: BP 124/61; PULSE 60
== END 2021-09-07 15:30 | disposition home or self-care (01) ==
LOC: MW.ED 23:34 → MW.MS 09-05 03:17
PROVIDERS: ADMIT Student in an Organized Health Care Education/Training Program; ATTEND Student in an Organized Health Care Education/Training Program
DX: K56.609 Unspecified intestinal obstruction, unspecified as to partial versus complete obstruction (principal); I10 Essential (primary) hypertension; E78.5 Hyperlipidemia, unspecified; E78.00 Pure hypercholesterolemia, unspecified; J44.9 Chronic obstructive pulmonary disease, unspecified; E11.42 Type 2 diabetes mellitus with diabetic polyneuropathy; F41.9 Anxiety disorder, unspecified; Z20.822 Contact with and (suspected) exposure to COVID-19; Z86.73 Personal history of transient ischemic attack (TIA), and cerebral infarction without residual deficits; Z88.8 Allergy status to other drugs, medicaments and biological substances; Z79.899 Other long term (current) drug therapy; Z90.49 Acquired absence of other specified parts of digestive tract; Z98.890 Other specified postprocedural states; Z87.891 Personal history of nicotine dependence
CPT/HCPCS: 36415; 43752; 74018; 74019; 74177; 80048; 80053; 82947; 83605; 83690; 83735; 84100; 85025; 96361; 96374; 96375; 96376; 99285; A9270; C9113; G0378; J2270; J2405; J3360; J3490; J7030; J7120; J7121; U0002; 99284

== ENCOUNTER 2021-12-18 19:47 | Emergency (ER) | payer MEDICARE, OTHER ==
[2021-12-18] MEDS ORDERED: fentaNYL 100 MCG/2 ML SDV IVPUSH ONE (19:55)
[2021-12-18] MEDS ORDERED: Sodium Chloride 0.9% 2.5 ML Syringe FLUSH PRN (19:56)
[2021-12-18] MEDS ORDERED: Sodium Chloride 0.9% 10 ML Syringe FLUSH PRN (19:56)
[2021-12-18] MEDS ORDERED: Ondansetron 4 MG/2 ML SDV IVPUSH ONE (19:56)
[2021-12-18 21:10] LABS: BLOOD UREA NITROGEN,BUN 13 mg/dL (7.0-18.0); CARBON DIOXIDE,CO2 26.1 mmol/L (21.0-32.0); CHLORIDE,CL 104 mmol/L (98-107); ESTIMATED GFR 45 mL/min (>60); GLUCOSE RANDOM 232 mg/dL (74-106); POTASSIUM,K 3.7 mmol/L (3.5-5.1); SODIUM,NA 142 mmol/L (136-145)
[2021-12-18 21:58] VITALS: BP 121/45; PULSE 67
== END 2021-12-18 22:07 | disposition home or self-care (01) ==
LOC: MW.ED 19:47
DX: S09.90XA Unspecified injury of head, initial encounter (principal); S52.502A Unspecified fracture of the lower end of left radius, initial encounter for closed fracture; E78.00 Pure hypercholesterolemia, unspecified; I10 Essential (primary) hypertension; E11.9 Type 2 diabetes mellitus without complications; Z88.1 Allergy status to other antibiotic agents; Z79.899 Other long term (current) drug therapy; Z90.49 Acquired absence of other specified parts of digestive tract; Z90.710 Acquired absence of both cervix and uterus; Z79.01 Long term (current) use of anticoagulants; W01.198A Fall on same level from slipping, tripping and stumbling with subsequent striking against other object, initial encounter
CPT/HCPCS: 29125; 36415; 70450; 72125; 73110; 80053; 85025; 85610; 99284; J3490

== ENCOUNTER 2022-07-22 07:11 | Observation (INO) | payer MEDICARE, OTHER ==
[2022-07-22] MEDS ORDERED: Sodium Chloride 0.9% 10 ML Syringe FLUSH PRN (07:29)
[2022-07-22] MEDS ORDERED: Sodium Chloride 0.9% 2.5 ML Syringe FLUSH PRN (07:29)
[2022-07-22] MEDS ORDERED: Morphine 4 MG/ML Syringe IVPUSH ONE (07:29)
[2022-07-22] MEDS ORDERED: Ondansetron 4 MG/2 ML SDV IVPUSH ONE (07:29)
[2022-07-22 07:39] LABS: BASOPHILS PERCENT AUTO 0.3 % (0.0-1.5); EOSINOPHILS ABSOLUTE AUTO 0.1 K/uL (0.0-0.7); EOSINOPHILS PERCENT AUTO 0.4 % (0.0-7.0); HEMATOCRIT 45.4 % (36.0-46.0); HEMOGLOBIN 14.8 g/dL (12.0-16.0); LYMPHOCYTES ABSOLUTE AUTO 2.2 K/uL (0.6-2.4); LYMPHOCYTES PERCENT AUTO 14.7 % (16.0-40.0); MEAN CORPUSCULAR HGB CONC 32.6 g/dL (31.0-37.0); MEAN CORPUSCULAR VOLUME 82.7 fL (80.0-98.0); MONOCYTES ABSOLUTE AUTO 0.9 K/uL (0.0-0.8); MONOCYTES PERCENT AUTO 5.9 % (0.0-15.0); NEUTROPHILS ABSOLUTE AUTO 11.5 K/uL (1.4-5.7); NEUTROPHILS PERCENT AUTO 78.7 % (48.0-80.0); NRBC ABSOLUTE 0 K/uL; PLATELET COUNT,PLT 324 K/uL (150-400); RED BLOOD CELL COUNT 5.49 M/uL (4.30-5.90); WHITE BLOOD CELL COUNT,WBC 14.67 K/uL (4.0-11.0)
[2022-07-22 07:56] LABS: A/G RATIO 1.2 (0.9-1.6); ALBUMIN 4.3 g/dL (3.4-5.0); BILIRUBIN TOTAL 0.7 mg/dL (0.2-1.0); CALCIUM 9.4 mg/dL (8.5-10.1); CARBON DIOXIDE,CO2 25.6 mmol/L (21.0-32.0); EST CRCL DRUG DOSING (CG) 54.32 mL/min; POTASSIUM,K 3.3 mmol/L (3.5-5.1)
[2022-07-22 07:58] LABS: LACTIC ACID 1.3 mmol/L (0.4-2.0)
[2022-07-22] MEDS ORDERED: Iopamidol 755 MG/ML 500 ML Multipack Bottle IVPUSH STA (09:37)
[2022-07-22 09:51] LABS: APPEARANCE,URINE CLEAR; BILIRUBIN,URINE NEGATIVE (NEGATIVE); COLOR,URINE YELLOW; GLUCOSE,URINE NEGATIVE (NEGATIVE); KETONES,URINE NEGATIVE (NEGATIVE); LEUKOCYTE ESTERASE,URINE TRACE (NEGATIVE); NITRITE,URINE NEGATIVE (NEGATIVE); OCCULT BLOOD,URINE TRACE-INTACT (NEGATIVE); PROTEIN,URINE NEGATIVE (NEGATIVE); UROBILINOGEN,URINE 0.2 EU/dL (<2.0)
[2022-07-22 10:10] LABS: BACTERIA,URINE FEW (NEGATIVE); CALCIUM OXALATE CRYSTALS,URINE FEW (NEGATIVE); EPITHELIAL CELLS,URINE MODERATE (NONE-FEW); RBC,URINE 0-1 (0-2/HPF)
[2022-07-22] MEDS ORDERED: Potassium Chloride 20 MEQ in Premix Bag 1 BAG IV ONE (10:16)
[2022-07-22] MEDS ORDERED: Lidocaine 2% 11 ML Jelly Filled Syringe MUCMEM STA (10:18)
[2022-07-22] MEDS ORDERED: Sodium Chloride 0.9% 250 ML IV ONE (10:30)
[2022-07-22] MEDS ORDERED: Ondansetron 4 MG Tab.DIS PO PRN (11:08)
[2022-07-22] MEDS ORDERED: oxyCODONE 5 MG Tab PO PRN (11:08)
[2022-07-22] MEDS ORDERED: Ondansetron 4 MG/2 ML SDV IVPUSH PRN (11:08)
[2022-07-22] MEDS ORDERED: Acetaminophen 325 MG Tab PO PRN (11:08)
[2022-07-22] MEDS ORDERED: 50% Dextrose in Water 50 ML Syringe IVPUSH PRN (11:16)
[2022-07-22] MEDS ORDERED: Glucagon,Human Recombinant 1 MG Vial IM PRN (11:16)
[2022-07-22] MEDS: Lactated Ringers 1,000 ML IV SCH ×2 (13:16→21:02)
[2022-07-22] MEDS: Insulin Aspart 100 Units/ML 3 ML Pen SUBCUT SCH ×3 (13:32→20:58)
[2022-07-22] MEDS: HYDROmorphone 1 MG/ML Syringe IVPUSH PRN ×2 (15:12→23:29)
[2022-07-22] MEDS: Gabapentin 100 MG Cap PO SCH (20:15)
[2022-07-22] MEDS ORDERED: ALPRAZolam 0.5 MG Tab PO SCH (21:00)
[2022-07-23] MEDS: Lactated Ringers 1,000 ML IV SCH (05:16)
[2022-07-23 06:26] LABS: BASOPHILS PERCENT AUTO 0.2 % (0.0-1.5); EOSINOPHILS ABSOLUTE AUTO 0.1 K/uL (0.0-0.7); EOSINOPHILS PERCENT AUTO 0.6 % (0.0-7.0); HEMATOCRIT 40.5 % (36.0-46.0); HEMOGLOBIN 12.6 g/dL (12.0-16.0); LYMPHOCYTES ABSOLUTE AUTO 1.5 K/uL (0.6-2.4); LYMPHOCYTES PERCENT AUTO 15.3 % (16.0-40.0); MEAN CORPUSCULAR HEMOGLOBIN 26.6 pg (27.0-32.0); MEAN CORPUSCULAR HGB CONC 31.1 g/dL (31.0-37.0); MEAN CORPUSCULAR VOLUME 85.4 fL (80.0-98.0); MONOCYTES ABSOLUTE AUTO 0.6 K/uL (0.0-0.8); MONOCYTES PERCENT AUTO 5.7 % (0.0-15.0); NEUTROPHILS ABSOLUTE AUTO 7.8 K/uL (1.4-5.7); NEUTROPHILS PERCENT AUTO 78.2 % (48.0-80.0); NRBC ABSOLUTE 0 K/uL; PLATELET COUNT,PLT 226 K/uL (150-400); RED BLOOD CELL COUNT 4.74 M/uL (4.30-5.90); WHITE BLOOD CELL COUNT,WBC 9.96 K/uL (4.0-11.0)
[2022-07-23 06:53] LABS: ALBUMIN 3.3 g/dL (3.4-5.0); BILIRUBIN TOTAL 0.6 mg/dL (0.2-1.0); CARBON DIOXIDE,CO2 31.8 mmol/L (21.0-32.0); CREATININE 0.8 mg/dL (0.6-1.0); EST CRCL DRUG DOSING (CG) 67.89 mL/min; POTASSIUM,K 3.6 mmol/L (3.5-5.1); PROTEIN TOTAL,TP 6.5 g/dL (6.4-8.2)
[2022-07-23] MEDS: Insulin Aspart 100 Units/ML 3 ML Pen SUBCUT SCH ×2 (06:57→11:45)
[2022-07-23] MEDS: HYDROmorphone 1 MG/ML Syringe IVPUSH PRN ×2 (07:21→13:42)
[2022-07-23] MEDS ORDERED: DULoxetine 60 MG Cap PO SCH (09:00)
[2022-07-23] MEDS ORDERED: Pioglitazone 15 MG Tab PO SCH (09:00)
[2022-07-23] MEDS: Gabapentin 100 MG Cap PO SCH (11:45)
[2022-07-23 13:45] VITALS: BP 133/67; PULSE 76
== END 2022-07-23 17:25 | disposition home or self-care (01) ==
LOC: MW.ED 07:11 → MW.MS 10:26
PROVIDERS: ADMIT Internal Medicine; ATTEND Internal Medicine
DX: K56.609 Unspecified intestinal obstruction, unspecified as to partial versus complete obstruction (principal); E87.6 Hypokalemia; M79.7 Fibromyalgia; F32.A Depression, unspecified; R04.0 Epistaxis; E78.00 Pure hypercholesterolemia, unspecified; J44.9 Chronic obstructive pulmonary disease, unspecified; I11.0 Hypertensive heart disease with heart failure; I50.9 Heart failure, unspecified; I43 Cardiomyopathy in diseases classified elsewhere; K21.9 Gastro-esophageal reflux disease without esophagitis; E11.21 Type 2 diabetes mellitus with diabetic nephropathy; M54.9 Dorsalgia, unspecified; I25.2 Old myocardial infarction; Z95.0 Presence of cardiac pacemaker; G89.29 Other chronic pain; F41.9 Anxiety disorder, unspecified; E11.42 Type 2 diabetes mellitus with diabetic polyneuropathy; E66.9 Obesity, unspecified; Z88.1 Allergy status to other antibiotic agents; Z98.84 Bariatric surgery status; Z79.899 Other long term (current) drug therapy; Z79.01 Long term (current) use of anticoagulants; Z86.73 Personal history of transient ischemic attack (TIA), and cerebral infarction without residual deficits; Z79.02 Long term (current) use of antithrombotics/antiplatelets
CPT/HCPCS: 36415; 71045; 74018; 74177; 80053; 81001; 82947; 83605; 83690; 83735; 84484; 85025; 93005; J1170; J2270; J2405; J3480; J3490; J7050; J7120; Q9967; 96361; 96365; 96366; 96375; 96376; 99221; 99239; 99283; 99285-25; G0378

== ENCOUNTER 2023-09-29 20:48 | Emergency (ER) | payer MEDICARE ==
[2023-09-29] MEDS ORDERED: Sodium Chloride 0.9% 10 ML Syringe FLUSH PRN (21:04)
[2023-09-29] MEDS ORDERED: Sodium Chloride 0.9% 2.5 ML Syringe FLUSH PRN (21:04)
[2023-09-29 21:15] LABS: BASOPHILS ABSOLUTE AUTO 0.07 K/uL (0.00-0.20); BASOPHILS PERCENT AUTO 0.8 % (0.0-1.0); EOSINOPHILS ABSOLUTE AUTO 0.15 K/uL (0.00-0.45); EOSINOPHILS PERCENT AUTO 1.7 % (0.0-6.0); HEMOGLOBIN 12.6 g/dL (12.0-16.0); IMMATURE GRAN ABSOLUTE AUTO 0.02 K/uL (0.00-0.05); IMMATURE GRAN PERCENT AUTO 0.2 % (0.0-0.4); LYMPHOCYTES ABSOLUTE AUTO 3.57 K/uL (1.00-4.80); LYMPHOCYTES PERCENT AUTO 39.7 % (24.0-44.0); MEAN CORPUSCULAR HEMOGLOBIN 26.6 pg (28.0-32.0); MEAN CORPUSCULAR HGB CONC 31.5 g/dL (32.0-36.0); MEAN CORPUSCULAR VOLUME 84.6 fL (83.0-99.0); MEAN PLATELET VOLUME 12.4 fL (9.4-12.3); MONOCYTES ABSOLUTE AUTO 0.66 K/uL (0.00-0.80); MONOCYTES PERCENT AUTO 7.3 % (0.0-8.0); NEUTROPHILS ABSOLUTE AUTO 4.53 K/uL (1.80-7.70); NEUTROPHILS PERCENT AUTO 50.3 % (41.0-71.0); PLATELET COUNT,PLT 278 K/uL (150-400); RED BLOOD CELL COUNT 4.73 M/uL (4.10-5.30)
[2023-09-29 21:40] LABS: A/G RATIO 1.1 (0.9-1.6); ALBUMIN 3.9 g/dL (3.4-5.0); BILIRUBIN TOTAL 0.5 mg/dL (0.2-1.0); CALCIUM 9.2 mg/dL (8.5-10.1); CARBON DIOXIDE,CO2 32.8 mmol/L (21.0-32.0); CREATININE 0.9 mg/dL (0.6-1.0); EST CRCL DRUG DOSING (CG) 59.51 mL/min; POTASSIUM,K 3.7 mmol/L (3.5-5.1); PROTEIN TOTAL,TP 7.4 g/dL (6.4-8.2)
[2023-09-29] MEDS: Iopamidol 755 MG/ML 500 ML Multipack Bottle IVPUSH ONE (21:59)
[2023-09-29] MEDS: Tenecteplase 50 MG Kit IVPUSH ONE (23:04)
[2023-09-29 23:40] VITALS: BP 141/63; PULSE 75
== END 2023-09-30 00:07 ==
LOC: MW.ED 20:48
DX: H53.8 Other visual disturbances (principal); M62.81 Muscle weakness (generalized); Z75.8 Other problems related to medical facilities and other health care; I11.0 Hypertensive heart disease with heart failure; I50.9 Heart failure, unspecified; J44.9 Chronic obstructive pulmonary disease, unspecified; E11.21 Type 2 diabetes mellitus with diabetic nephropathy; E78.00 Pure hypercholesterolemia, unspecified; J45.909 Unspecified asthma, uncomplicated; E66.9 Obesity, unspecified; Z86.16 Personal history of COVID-19; Z90.49 Acquired absence of other specified parts of digestive tract; Z90.710 Acquired absence of both cervix and uterus; Z79.899 Other long term (current) drug therapy; Z88.8 Allergy status to other drugs, medicaments and biological substances
CPT/HCPCS: 36415; 37195; 70450; 70496; 70498; 71045; 80053; 82947; 84484; 85025; 93005; 99285; J3101; Q9967; 93010; 99284

== ENCOUNTER 2024-01-18 19:35 | Emergency (ER) | payer MEDICARE ==
[2024-01-18] MEDS ORDERED: Sodium Chloride 0.9% 10 ML Syringe FLUSH PRN (19:46)
[2024-01-18] MEDS ORDERED: Sodium Chloride 0.9% 2.5 ML Syringe FLUSH PRN (19:46)
[2024-01-18 20:18] LABS: BASOPHILS ABSOLUTE AUTO 0.05 K/uL (0.00-0.20); BASOPHILS PERCENT AUTO 0.7 % (0.0-1.0); EOSINOPHILS ABSOLUTE AUTO 0.08 K/uL (0.00-0.45); EOSINOPHILS PERCENT AUTO 1.1 % (0.0-6.0); HEMATOCRIT 34.9 % (37.0-47.0); HEMOGLOBIN 11.5 g/dL (12.0-16.0); IMMATURE GRAN ABSOLUTE AUTO 0.01 K/uL (0.00-0.05); IMMATURE GRAN PERCENT AUTO 0.1 % (0.0-0.4); LYMPHOCYTES ABSOLUTE AUTO 2.12 K/uL (1.00-4.80); LYMPHOCYTES PERCENT AUTO 28.1 % (24.0-44.0); MEAN CORPUSCULAR HEMOGLOBIN 27.4 pg (28.0-32.0); MEAN CORPUSCULAR VOLUME 83.3 fL (83.0-99.0); MEAN PLATELET VOLUME 12.5 fL (9.4-12.3); MONOCYTES ABSOLUTE AUTO 0.74 K/uL (0.00-0.80); MONOCYTES PERCENT AUTO 9.8 % (0.0-8.0); NEUTROPHILS ABSOLUTE AUTO 4.55 K/uL (1.80-7.70); NEUTROPHILS PERCENT AUTO 60.2 % (41.0-71.0); PLATELET COUNT,PLT 283 K/uL (150-400); RED BLOOD CELL COUNT 4.19 M/uL (4.10-5.30); WHITE BLOOD CELL COUNT,WBC 7.55 K/uL (3.9-11.3)
[2024-01-18 20:26] LABS: INR 0.97 (0.86-1.11)
[2024-01-18 20:36] LABS: ALBUMIN 3.3 g/dL (3.4-5.0); BILIRUBIN TOTAL 0.4 mg/dL (0.2-1.0); CALCIUM 8.5 mg/dL (8.5-10.1); CARBON DIOXIDE,CO2 30.6 mmol/L (21.0-32.0); CREATININE 0.8 mg/dL (0.6-1.0); EST CRCL DRUG DOSING (CG) 66.01 mL/min; POTASSIUM,K 3.1 mmol/L (3.5-5.1); PROTEIN TOTAL,TP 6.5 g/dL (6.4-8.2)
[2024-01-18] MEDS: Iopamidol 755 MG/ML 500 ML Multipack Bottle IVPUSH ONE (20:56)
[2024-01-18] MEDS: Potassium Chloride 20 MEQ Tab.ER PO ONE (21:18)
[2024-01-18 22:35] VITALS: BP 115/52; PULSE 66
== END 2024-01-18 22:34 | disposition home or self-care (01) ==
LOC: MW.ED 19:35
DX: R04.2 Hemoptysis (principal); I11.0 Hypertensive heart disease with heart failure; I50.9 Heart failure, unspecified; E78.00 Pure hypercholesterolemia, unspecified; J44.89 Other specified chronic obstructive pulmonary disease; E11.42 Type 2 diabetes mellitus with diabetic polyneuropathy; E66.9 Obesity, unspecified; Z90.49 Acquired absence of other specified parts of digestive tract; Z90.710 Acquired absence of both cervix and uterus; Z87.891 Personal history of nicotine dependence; Z86.73 Personal history of transient ischemic attack (TIA), and cerebral infarction without residual deficits; Z88.8 Allergy status to other drugs, medicaments and biological substances; Z79.899 Other long term (current) drug therapy; Z75.8 Other problems related to medical facilities and other health care; Z68.27 Body mass index [BMI] 27.0-27.9, adult
CPT/HCPCS: 36415; 71275; 80053; 85025; 85610; 87428; 93005; 99285; A9270; Q9967; 93010

== ENCOUNTER 2024-03-10 08:06 | Emergency (ER) | payer MEDICARE ==
[2024-03-10] MEDS: Sodium Chloride 0.9% 10 ML Syringe FLUSH PRN (09:09)
[2024-03-10] MEDS: methylPREDNISolone Sodium Succinate 125 MG/2 ML SDV IVPUSH ONE (09:09)
[2024-03-10 09:15] LABS: BASOPHILS ABSOLUTE AUTO 0.03 K/uL (0.00-0.20); BASOPHILS PERCENT AUTO 0.5 % (0.0-1.0); EOSINOPHILS ABSOLUTE AUTO 0.01 K/uL (0.00-0.45); EOSINOPHILS PERCENT AUTO 0.2 % (0.0-6.0); HEMATOCRIT 39.3 % (37.0-47.0); HEMOGLOBIN 12.3 g/dL (12.0-16.0); IMMATURE GRAN ABSOLUTE AUTO 0.02 K/uL (0.00-0.05); IMMATURE GRAN PERCENT AUTO 0.3 % (0.0-0.4); LYMPHOCYTES ABSOLUTE AUTO 0.77 K/uL (1.00-4.80); LYMPHOCYTES PERCENT AUTO 12.7 % (24.0-44.0); MEAN CORPUSCULAR HEMOGLOBIN 26.1 pg (28.0-32.0); MEAN CORPUSCULAR HGB CONC 31.3 g/dL (32.0-36.0); MEAN CORPUSCULAR VOLUME 83.4 fL (83.0-99.0); MEAN PLATELET VOLUME 12.6 fL (9.4-12.3); MONOCYTES ABSOLUTE AUTO 0.59 K/uL (0.00-0.80); MONOCYTES PERCENT AUTO 9.7 % (0.0-8.0); NEUTROPHILS ABSOLUTE AUTO 4.65 K/uL (1.80-7.70); NEUTROPHILS PERCENT AUTO 76.6 % (41.0-71.0); PLATELET COUNT,PLT 192 K/uL (150-400); RED BLOOD CELL COUNT 4.71 M/uL (4.10-5.30); WHITE BLOOD CELL COUNT,WBC 6.07 K/uL (3.9-11.3)
[2024-03-10 09:46] LABS: A/G RATIO 1.1 (0.9-1.6); ALBUMIN 3.8 g/dL (3.4-5.0); BILIRUBIN TOTAL 0.7 mg/dL (0.2-1.0); CALCIUM 8.7 mg/dL (8.5-10.1); EST CRCL DRUG DOSING (CG) 52.81 mL/min; POTASSIUM,K 3.8 mmol/L (3.5-5.1); PROTEIN TOTAL,TP 7.3 g/dL (6.4-8.2)
[2024-03-10] MEDS: Acetaminophen 500 MG Tab PO ONE (10:06)
[2024-03-10 10:10] VITALS: BP 124/55; PULSE 85
== END 2024-03-10 10:26 | disposition home or self-care (01) ==
LOC: MW.ED 08:06
DX: J06.9 Acute upper respiratory infection, unspecified (principal); R07.9 Chest pain, unspecified; J44.89 Other specified chronic obstructive pulmonary disease; I50.9 Heart failure, unspecified; E78.00 Pure hypercholesterolemia, unspecified; K21.9 Gastro-esophageal reflux disease without esophagitis; E66.9 Obesity, unspecified; E11.9 Type 2 diabetes mellitus without complications; Z86.16 Personal history of COVID-19; Z87.891 Personal history of nicotine dependence; Z79.899 Other long term (current) drug therapy; Z91.048 Other nonmedicinal substance allergy status; Z88.8 Allergy status to other drugs, medicaments and biological substances; Z90.49 Acquired absence of other specified parts of digestive tract; Z90.710 Acquired absence of both cervix and uterus
CPT/HCPCS: 36415; 71045; 80053; 83690; 83735; 83880; 84484; 85025; 85379; 87428; 93005; 96374; 99285; A9270; J2919